=== PATIENT | female | born 1955 | race Caucasian/White ===

== ENCOUNTER → 2018-02-08 07:38 | Outpatient (CLI) | payer OTHER, SELFPAY ==
[2018-02-08 09:01] LABS: Add Manual Diff / Slide Review NO; Basophils Percent Auto 0.8 % (0-2); Eosinophils Percent Auto 1.2 % (2-4); Hematocrit 27.9 % (36-46); Hemoglobin 9.6 g/dL (12.0-16.0); Lymphocytes Percent Auto 31.3 % (25-40); Mean Corpuscular HGB Conc 34.5 % (30-36); Mean Corpuscular Hemoglobin 38.5 PG (26-34); Mean Corpuscular Volume 111.5 fL (80-100); Monocytes Percent Auto 11.8 % (3-14); Neutrophils Absolute Auto 1500 /uL (3000-5900); Neutrophils Percent Auto 54.9 % (50-75); Platelet Count 189 X10^3/uL (150-400); Red Cell Distribution Width 16.7 % (11.6-14.8); White Blood Cell Count 2.8 X10^3/uL (4.5-11.0)
[2018-02-08 09:15] LABS: HEMOLYSIS < 15 (0-50); Iron 92 ug/dL (37-170)
[2018-02-08 09:17] LABS: Alanine Aminotransferase 18 IU/L (9-52); Albumin 3.6 g/dL (3.5-5.0); Albumin Globulin Ratio 1.4 (1.0-2.8); Alkaline Phosphatase 103 U/L (38-126); Aspartate Aminotransferase 35 IU/L (14-36); BUN Creatinine Ratio 23.3 (6-22); Bilirubin Total 0.9 mg/dL (0.2-1.3); Blood Urea Nitrogen 14 mg/dL (7-17); Calcium 8.7 mg/dL (8.4-10.2); Carbon Dioxide 24 mmol/L (22-32); Chloride 106 mmol/L (98-107); Estimated Glomerular Filt Rate > 60.0 mL/min (>60); Globulin 2.5 g/dL (1.7-4.1); Glucose 152 mg/dL (80-110); HEMOLYSIS < 15 (0-50); Potassium 3.8 mmol/L (3.4-5.1); Sodium 140 mmol/L (137-145); Total Protein 6.1 g/dL (6.3-8.2)
[2018-02-08 09:20] LABS: Polychromasia 1+
[2018-02-08 09:21] LABS: Hypochromasia 1+; Macrocytosis 2+
[2018-02-08 09:26] LABS: Percent Iron Saturation 27 % (15-50); Total Iron Binding Capacity 335 ug/dL (265-497); Transferrin 280 mg/dL (206-381)
[2018-02-08 09:51] LABS: Ferritin 62.6 ng/mL (11.1-264)
[2018-02-08 10:21] LABS: Vitamin B12 305 pg/mL (239-931)
== END ==
PROVIDERS: Family Provider Family Medicine; PCP Family Medicine; Visit Provider Internal Medicine Hematology & Oncology
DX: C50.912 Malignant neoplasm of unspecified site of left female breast (principal); D64.9 Anemia, unspecified
CPT/HCPCS: 36415; 80053; 82607; 82728; 82746; 83540; 83550; 85025

== ENCOUNTER → 2018-02-11 07:44 | Outpatient (CLI) | payer OTHER, SELFPAY ==
--- NOTE | 2018-02-11 07:45 | DI.MRI.S_ITS ---
PROCEDURE: MR HEAD/BRAIN WO/W CON INDICATIONS: Malignant neoplasm of unspecified site of left fem TECHNIQUE: Noncontrast axial T1 spin echo, axial T2 fast spin echo, sagittal and axial FLAIR, coronal T2 fast spin echo, axial gradient echo, axial diffusion and ADC through the brain. After the administration of contrast, axial and coronal T1 spin echo with fat saturation through the brain. COMPARISON: None. FINDINGS: Image quality: Excellent. CSF spaces: Basal cisterns are patent. No extra-axial fluid collections. Ventricles are normal in size and shape. Brain: No midline shift. No intracranial bleeds or masses. Diffuse, generalized thickening and enhancement can be seen of the dura, including the falx. Mild nodularity can be seen of the thickening, particularly anteriorly. There is mild cerebral volume loss. There is periventricular white matter chronic small vessel ischemic change. The brainstem appears normal. Diffusion-weighted images demonstrate no acute ischemic insults. No chronic ischemic insults. Normal intravascular flow voids are present. Skull and face: Calvarial marrow is normal in signal. Orbits appear normal. Sinuses: Sinuses appear clear. There is moderate abnormal fluid seen involving the right mastoid air cells. IMPRESSION: Diffuse thickening and enhancement can be seen throughout the dura, including the falx. Given the patient's history, this is worrisome for diffuse meningeal metastasis. Differential diagnosis includes idiopathic pachymeningitis, infection, intracranial hypotension, and sarcoid, yet these possibilities are considered to be less likely. No findings of brain parenchymal metastasis can be seen. Moderate abnormal fluid can be seen involving the right mastoid air cells. Please correlate with potential clinical findings of mastoiditis. Dictated by: Madi Navarrete M.D. on 02/11/2018 at 10:03 Approved by: Madi Navarrete M.D. on 02/11/2018 at 10:17
== END ==
PROVIDERS: Family Provider Family Medicine; PCP Family Medicine; Visit Provider Internal Medicine Hematology & Oncology
DX: C50.912 Malignant neoplasm of unspecified site of left female breast (principal); C79.51 Secondary malignant neoplasm of bone
CPT/HCPCS: 70553

== ENCOUNTER → 2018-04-19 09:09 | Outpatient (CLI) | payer OTHER, SELFPAY ==
--- NOTE | 2018-04-19 09:11 | DI.NM.S_ITS ---
PROCEDURE: NM BONE SCAN WHOLE BODY RADIOPHARMACEUTICAL: 20.3 mCi Tc-99m MDP IV. INDICATIONS: Secondary malignant neoplasm suspected based on history of breast carcinoma December 2017 and presence of diffuse meningeal enhancement and thickening suspected to represent carcinomatosis within the CSF. TECHNIQUE: Delayed whole-body scintigrams were obtained approximately 3-4 hours after intravenous injection of radiotracer. Anterior and posterior views were acquired from vertex to feet. Additional left and right oblique views of the chest/abdomen/upper margin of the pelvis were obtained. COMPARISON: [facility], MR, MR HEAD/BRAIN WO/W CON, 02/11/2018, 8:02. [facility], CT, ABDOMEN WITH CONTRAST, 06/01/2008, 11:22. FINDINGS: Normal examination. IMPRESSION: No evidence of osseous metastatic disease is found. Dictated by: Dickson Calle M.D. on 04/19/2018 at 14:46 Approved by: Dickson Calle M.D. on 04/19/2018 at 14:51
[2018-04-19 09:28] LABS: Add Manual Diff / Slide Review NO; Basophils Absolute Auto 0 /uL (0-100); Basophils Percent Auto 1.2 % (0-2); Eosinophils Absolute Auto 0 /uL (0-450); Eosinophils Percent Auto 0.9 % (2-4); Hematocrit 31.3 % (36-46); Hemoglobin 10.6 g/dL (12.0-16.0); Lymphocytes Absolute Auto 700 /uL (1100-4500); Lymphocytes Percent Auto 20.4 % (25-40); Mean Corpuscular HGB Conc 33.8 % (30-36); Mean Corpuscular Hemoglobin 38.4 PG (26-34); Mean Corpuscular Volume 113.4 fL (80-100); Monocytes Absolute Auto 300 /uL (0-900); Monocytes Percent Auto 9.8 % (3-14); Neutrophils Absolute Auto 2200 /uL (1500-7000); Neutrophils Percent Auto 67.7 % (50-75); Platelet Count 151 X10^3/uL (150-400); Red Blood Cell Count 2.76 X10^6/uL (4.0-5.2); Red Cell Distribution Width 16.9 % (11.6-14.8); White Blood Cell Count 3.3 X10^3/uL (4.5-11.0)
[2018-04-19 09:53] LABS: Anisocytosis 1+
[2018-04-19 09:54] LABS: Macrocytosis 2+
--- NOTE | 2018-04-21 15:32 | PC.NURSE ---
Results of resent bone scan faxed to pt per her request.
== END ==
PROVIDERS: Family Provider Family Medicine; PCP Family Medicine; Visit Provider Internal Medicine Hematology & Oncology
DX: C50.912 Malignant neoplasm of unspecified site of left female breast (principal)
CPT/HCPCS: 36415; 78306; 85025; A9503

== ENCOUNTER → 2018-05-25 09:03 | Outpatient (CLI) | payer OTHER, SELFPAY ==
--- NOTE | 2018-05-25 10:09 | DI.CT.S_ITS ---
PROCEDURE: CT CHEST ABD PEL W CON INDICATIONS: Restaging breast cancer TECHNIQUE: After the administration of oral and intravenous contrast, 5 mm thick sections acquired from the lung apices to the symphysis. 5 mm coronal and sagittal reformats were performed, with additional 7 mm coronal MIP reformats through the lungs. For radiation dose reduction, the following was used: automated exposure control, adjustment of mA and/or kV according to patient size. COMPARISON: [place], [place], [place] BONE SCAN WHOLE BODY, 04/19/2018, 12:51. [facility], , CT ABDOMEN/PELVIS WITH CONTRAST, 01/25/2018, 12:20. [facility], , CT THORAX WITH CONTRAST, 01/27/2018, 13:15. FINDINGS: Image quality: Excellent. CHEST: Lungs and pleura: No acute airspace opacities. There is biapical scarring. Mild centrilobular emphysema is seen 3 mm nodular density in the anterior aspect of the right upper lobe is noted unchanged from previous study series 3 image 31. No discrete left lung nodule is seen.No pleural effusions or pneumothorax. Central and peripheral airways appear patent and normal in caliber. Mediastinum: Heart size is normal. No pericardial effusion. No mediastinal or hilar adenopathy by size criteria. Subcentimeter lymph nodes are seen in mediastinum measures up to 8 mm in size in precarinal space unchanged from previous study. Thoracic aorta and central pulmonary arteries are normal in size. Esophagus is normal in caliber. There is a small hiatal hernia. Chest wall: No axillary or supraclavicular adenopathy by size criteria. Left thyroid lobe is enlarged with partially calcified 9 mm left thyroid lobe nodule is seen unchanged from previous study. ABDOMEN: Solid organs: Liver is normal in size and enhancement. Gallbladder is within normal limits. Biliary system is non dilated. There is a 3.1 x 2.5 x 3 cm cystic structure is seen involving tail of pancreas inferior to greater curvature of stomach. This has increased in size compared to 2.3 x 2.5 cm seen on previous study. It is difficult to separate this structure from adjacent posterior lateral gastric wall. Spleen is normal in size and enhancement. 1 x 0.7 cm left adrenal nodule is seen, unchanged from previous study.. No right adrenal nodules. Kidneys demonstrate normal size and enhancement, without hydronephrosis. Peritoneum and bowel: There is suggestion of diffuse gastric wall thickening. No definite discrete vascular wall mass is seen. There is also diffuse colonic wall thickening particularly involving ascending colon and proximal to mid transverse colon. No significant small bowel wall thickening is seen. No evidence of bowel obstruction. No free fluid or free air. Nodes and vessels: No retroperitoneal or mesenteric adenopathy by size criteria. Aorta and inferior vena cava are normal in size. Miscellaneous: No ventral hernias. PELVIS: Genitourinary: Bladder wall thickness is normal. Miscellaneous: No inguinal hernias or adenopathy. Bones: Markedly heterogeneous marrow density throughout visualized thoracic and lumbar vertebral bodies as well as bilateral ribs and bony pelvis concerning for extensive bony metastasis. Similar changes also seen in bilateral shoulder joints. IMPRESSION: 1. Biapical scarring. Stable 3 mm nodule in anterior aspect of right upper lobe unchanged from prior study. No new pulmonary nodule or mass is seen. 2. No mediastinal or hilar lymphadenopathy. No abdominal or pelvic lymphadenopathy. 3. Small hiatal hernia. No evidence of bowel obstruction. Suggestion of gastric wall thickening as well as diffuse colonic wall thickening. Finding may represent infectious or inflammatory gastritis and colitis. This is also seen on previous CT study. 4. 3.1 x 2.5 x 3 cm cystic structure involving tail of pancreas inferior to greater curvature of stomach and has increased in size since previous study concerning for primary or metastatic disease involving pancreatic tail. It is difficult to separate this structure from adjacent gastric wall, tumor invasion of gastric wall cannot be excluded. 5. Markedly heterogeneous marrow density is well visualized osseous structures concerning for extensive metastatic bony lesions. No gross pathologic fracture is seen. Dictated by: Ezio Xiao M.D. on 05/25/2018 at 14:41 Approved by: Ezio Xiao M.D. on 05/25/2018 at 15:15
== END ==
PROVIDERS: Family Provider Family Medicine; PCP Family Medicine; Visit Provider Internal Medicine Hematology & Oncology
DX: C50.912 Malignant neoplasm of unspecified site of left female breast (principal); R91.1 Solitary pulmonary nodule; K44.9 Diaphragmatic hernia without obstruction or gangrene; K86.2 Cyst of pancreas
CPT/HCPCS: 71260; 74177; 93005; 93010; Q9967

== ENCOUNTER → 2018-07-20 11:04 | Outpatient (CLI) | payer OTHER, SELFPAY ==
--- NOTE | 2018-07-20 11:16 | DI.CT.S_ITS ---
PROCEDURE: CT CHEST ABD PEL W CON INDICATIONS: metastatic breast cancer, restaing TECHNIQUE: After the administration of oral and intravenous contrast, 5 mm thick sections acquired from the lung apices to the symphysis. 5 mm coronal and sagittal reformats were performed, with additional 7 mm coronal MIP reformats through the lungs. For radiation dose reduction, the following was used: automated exposure control, adjustment of mA and/or kV according to patient size. COMPARISON: [facility], , CT THORAX WITH CONTRAST, 01/27/2018, 13:15. [facility], , CT ABDOMEN/PELVIS WITH CONTRAST, 01/25/2018, 12:20. [facility], CT, ABDOMEN WITH CONTRAST, 06/01/2008, 11:22. [facility], CT, CT CHEST ABD PEL W CON, 05/25/2018, 9:45. FINDINGS: Image quality: Excellent. CHEST: Lungs and pleura: There is 3 mm subpleural nodule in the right middle lobe anteriorly (series 3 image 29), unchanged since 01/27/2018. No acute airspace opacities. No pleural effusions or pneumothorax. Central and peripheral airways appear patent and normal in caliber. Mediastinum: Heart size is normal. No pericardial effusion. No mediastinal or hilar adenopathy by size criteria. Thoracic aorta and central pulmonary arteries are normal in size. Esophagus is normal in caliber. No hiatal hernia. Chest wall: No axillary or supraclavicular adenopathy by size criteria. There is a 9 mm left thyroid nodule, unchanged. ABDOMEN: Solid organs: Liver is normal in size and enhancement. Gallbladder is normal. Biliary system is non dilated. There is a 1.6 x 2.4 cm cystic mass near the pancreatic tail, which demonstrated interval decrease in size (previously 2.1 x 3.2 cm on 05/25/2018). Pancreas enhances normally. Spleen is normal in size and enhancement. No adrenal nodules. Kidneys demonstrate normal size and enhancement, without hydronephrosis. Peritoneum and bowel: There is colonic wall thickening involving the hepatic flexure and transverse colon suggesting colitis. Bowel loops demonstrate normal wall caliber. No free fluid or air. Nodes and vessels: No retroperitoneal or mesenteric adenopathy by size criteria. Aorta and inferior vena cava are normal in size. Miscellaneous: No ventral hernias. PELVIS: Genitourinary: Bladder wall thickness is normal. Miscellaneous: No inguinal hernias or adenopathy. Bones: There are widespread osseous metastases with mixed lytic and blastic bone lesions. No vertebral body compression fractures. IMPRESSION: 1. Stable 3 mm lung nodule since 01/27/2018. 2. Interval decrease in size of a cystic mass in the area of the pancreatic tail. 3. Widespread osseous metastases. 4. There is colonic wall thickening involving the hepatic flexure and transverse colon, suspicious for colitis. 5. A 9 mm left thyroid nodule. Recommend thyroid ultrasound for followup. Dictated by: Sherif Bain M.D. on 07/20/2018 at 12:54 Approved by: Sherif Bain M.D. on 07/20/2018 at 18:05
== END ==
PROVIDERS: Family Provider Family Medicine; PCP Family Medicine; Visit Provider Internal Medicine Hematology & Oncology
DX: C50.912 Malignant neoplasm of unspecified site of left female breast (principal); C79.51 Secondary malignant neoplasm of bone; R91.1 Solitary pulmonary nodule; K86.9 Disease of pancreas, unspecified; E04.1 Nontoxic single thyroid nodule
CPT/HCPCS: 71260; 74177; Q9967

== ENCOUNTER → 2018-10-27 09:44 | Outpatient (CLI) | payer OTHER, SELFPAY ==
--- NOTE | 2018-10-27 09:47 | DI.CT.S_ITS ---
PROCEDURE: CT CHEST ABD PEL W CON INDICATIONS: met breast cancer TECHNIQUE: After the administration of intravenous contrast, 5 mm thick sections acquired from the lung apices to the symphysis. 5 mm coronal and sagittal reformats were performed, with additional 7 mm MIP reformats through the lungs. For radiation dose reduction, the following was used: automated exposure control, adjustment of mA and/or kV according to patient size. COMPARISON: [facility], , CT ABDOMEN/PELVIS WITH CONTRAST, 01/25/2018, 12:20. [facility], CT, CT CHEST ABD PEL W CON, 05/25/2018, 9:45. [facility], CT, CT CHEST ABD PEL W CON, 07/20/2018, 11:55. FINDINGS: Image quality: Excellent. CHEST: Lungs and pleura: No acute consolidation. 2-3 mm nodule involving the posterior left upper lobe and anterior right lobe are unchanged. No pleural effusions or pneumothorax. Central and peripheral airways appear patent and normal in caliber. Mediastinum: Heart size is normal. No pericardial effusion. No mediastinal or hilar adenopathy by size criteria. Thoracic aorta and central pulmonary arteries are normal in size. Esophagus is normal in caliber. No hiatal hernia. Chest wall: No axillary or supraclavicular adenopathy by size criteria. Thyroid gland contains heterogeneous nodule present within the left lobe, grossly unchanged. This could be better assessed with ultrasound as clinically necessary. ABDOMEN: Solid organs: Liver is normal in size and enhancement. Gallbladder partially contracted otherwise unremarkable. Biliary system is non dilated. Grossly unchanged appearance of predominantly cystic lesion in the region of the tail the pancreas, or possibly involving the adjacent gastric wall measuring 3 cm. Spleen is normal in size and enhancement. No adrenal nodules. Kidneys demonstrate normal size and enhancement, without hydronephrosis. Peritoneum and bowel: There is bowel wall thickening involving the hepatic flexure and proximal to mid transverse colon. Overall however this appears improved since 01/25/18, and grossly unchanged since 07/20/18. No free fluid or air. Nodes and vessels: No retroperitoneal or mesenteric adenopathy by size criteria. Aorta and inferior vena cava are normal in size. Miscellaneous: No ventral hernias. PELVIS: Genitourinary: The bladder partially contracted otherwise unremarkable Miscellaneous: No inguinal hernias or adenopathy. Bones: Widespread osseous metastases appear grossly unchanged IMPRESSION: Overall, stable examination since 07/20/18. Redemonstration widespread osseous metastases, grossly unchanged. Unchanged appearance of colonic wall thickening involving the hepatic flexure and transverse colon, also unchanged. Indeterminate cystic lesion involving the region of the pancreatic tail. This appears grossly unchanged. Dictated by: Saman Bush M.D. on 10/27/2018 at 14:51 Approved by: Saman Bush M.D. on 10/27/2018 at 15:00
--- NOTE | 2018-10-27 09:47 | DI.NM.S_ITS ---
PROCEDURE: SC BONE SCAN WHOLE BODY RADIOPHARMACEUTICAL: 22 mCi Tc-99m MDP IV. INDICATIONS: met breast cancer TECHNIQUE: Delayed whole-body scintigrams were obtained approximately 3-4 hours after intravenous injection of radiotracer. Anterior and posterior views were acquired from vertex to feet. COMPARISON: [facility], CT, CT CHEST ABD PEL W CON, 10/27/2018, 11:13. [facility], [place], SC BONE SCAN WHOLE BODY, 04/19/2018, 12:51. FINDINGS: There is heterogeneous mildly increased activity within the visualized osseous structures including the calvarium, ribs, spine, sternum, bony pelvis, femurs, and tibia. These correspond to diffuse osseous metastatic disease seen on the concurrent CT. There is focal uptake in the region of the right costovertebral junction of T11 which may correspond to a more active metastatic lesion. IMPRESSION: 1. Diffusely heterogeneous increase bony uptake corresponding to diffuse metastatic disease seen on CT. 2. Focal uptake at the right costovertebral junction of T11 suggestive of active metastatic disease. Dictated by: Abdon Good M.D. on 10/27/2018 at 20:21 Approved by: Abdon Good M.D. on 10/27/2018 at 20:23
== END ==
PROVIDERS: Family Provider Family Medicine; PCP Family Medicine; Visit Provider Internal Medicine Hematology & Oncology
DX: C50.912 Malignant neoplasm of unspecified site of left female breast (principal); C79.51 Secondary malignant neoplasm of bone; K86.2 Cyst of pancreas; R91.8 Other nonspecific abnormal finding of lung field
CPT/HCPCS: 71260; 74177; 78306; A9503; Q9967

== ENCOUNTER → 2019-01-10 09:40 | Oncology outpatient (ONC) | payer OTHER, SELFPAY ==
--- NOTE | 2018-02-01 14:47 | ONC.NAV ---
Late Entry: T/C care coordination on 01/29/18 Description: Medical Priority Loading [place] Activity: Completed a medical priority boarding pass for pt, scanned and emailed it for their use on Thursday. Introduced myself as the Pt [facility]/JANITOR HELPER, and assisted with coordination of pt's initial new consult visit with Dr. Park. Will plan to f/u with pt/spouse again once she see's the provider.
[2018-02-01 14:59] VITALS: TEMP 36.7
--- NOTE | 2018-02-01 15:05 | ONC.CONS ---
History of Present Illness - Data of Consult Patient: new to practice Consult date: 02/01/18 Requesting Physician: Ahsan Handy MD Primary Care Provider: Stephen Mckeon MD - Consult Narrative Reason for consult: Newly diagnosed metastatic breast cancer Narrative: Keely Torers is a 62 year old female. She reported that for the past one and half years (likely since mid 2016), patient has been losing weight continuously. She said she was losing weight 5 lb at a time. She did not pay much attention initially until recently when she developed lower abdomen pain and bloating. She said the pain sometimes feels like stabbing. Patient also said that the abdominal symptoms are associated with dry heaves, nausea and sometimes vomiting. Patient is having repeated diarrhea. But she denies any blood in the stool. Her PCP Dr. Mckeon saw the patient and referred her to local coordinator Dr. Moy for EGD and C-scope. On 01/25/2018, patient underwent CT abdomen pelvis with contrast. It showed diffuse osseous metastasis. Site of primary malignancy is not identified on the abdomen and pelvic CT. Mild amount of free fluid within the abdomen and pelvis of uncertain cause. 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 Incomplete distention of the stomach with possible thickening of the gastric body and antrum diffusely but no discrete mass. On 01/25/2018,Dr Handy performed EGD and C-scope. EGD showed norrmal esophagus, but edematous mucosa in the cardia, gastric fundus and duodenm. biopsies were obtained. C-scope showed congested mucosa in the entire examined colon and was biopsied. One 2 mm, nonbleeding polyp in the sigmoid colon was resected and retrieved. The examination was otherwise normal. The colon/gastric biopsies found metastatic carcinoma consistent with lobular carcinoma of breast. On 01/27/2018, she underwent CT chest that showed no pulmonary parenchymal nodules or adenopathy, but it showed diffuse osseous predominantly blastic metastasis. Infiltration of the proximal right humerus was noted. On January 27, 2018 patient underwent left breast ultrasound-guided core biopsies. The biopsy showed invasive lobular carcinoma, intermediate grade, 4 of 9 cores involved, 6 mm in greatest length of carcinoma, without identifiable lymphovascular invasion, without ductal carcinoma in-situ present, ER positive (3+, 100% of cells), RI positive (1+, 30% of cells), Ki 67 intermediate (10% of cells), HER2 IHC equivocal for HER2 (overexpression 2+, 20% of cells), FISH pending. Dr. Handy called and informed the patient of the results. Per patient request, patient was referred to [facility] as patient lives in [place] and [place] would be closer for her. Her case is scheduled for [facility] Tumor Board discussion tomorrow. She is complaining of low energy and pretty fatigue. She denies any headache. She is complaining of stomach pain while she was pointing to her lower abdomen. Patient reports pain?: Yes Home Medications and Allergies Home Medications Medication Instructions Recorded Confirmed Type lorazepam [Ativan] 0.5 mg SUBLINGUAL 4-6XD PRN #60 tab 02/04/18 Rx oxycodone 5 mg PO Q4-6H PRN #60 cap 02/04/18 Rx Allergies Allergy/AdvReac Type Severity Reaction Status Date / Time No Known Drug Allergies Allergy Verified 02/04/18 09:11 Medical History - Medical, Surgical, Family History Medical History: Medical History (Last Updated 02/01/18 @ 15:19 by Juana Park MD) [place] chorioretinopathy Surgical History: Surgical History (Last Updated 02/01/18 @ 15:19 by Juana Park MD) H/O section Family History: Family History (Last Updated 02/01/18 @ 15:20 by Juana Park MD) Mother Breast cancer Father Alzheimer disease - Social History Smoking Status: Never smoker Substance Use Type: does not use Alcohol Intake Frequency: 0-2 drinks per day Review of Systems All systems PM: reviewed and no additional remarkable complaints except as stated Exam Vital signs: Temp 98.1 F 02/01/18 16:04 Pulse 97 H 02/01/18 16:04 Resp 18 02/01/18 16:04 BP 130/93 H 02/01/18 16:04 Pulse Ox 100 02/01/18 16:04 ECOG 1 - Constitutional positive no acute distress, positive cachectic, positive chronically ill appearing, positive cooperative - Routine HEENT Exam Head: Present: normocephalic, atraumatic Eye: Present: EOMI, PERRL, normal accommodation. Absent: conjunctival icterus ENT: Present: mucous membranes moist - Routine Neck Exam Present: supple, full ROM. Absent: JVD, lymphadenopathy, thyromegaly, tenderness, swelling - Detailed Breast Exam left Inspection: Absent: rash, erythema, swelling, peau d'orange, nipple discharge, area of retraction, discharge Palpation: Present: mass (at about 1-2 o'clcok), tenderness Mass type: Present: mobile, tenderness, hard Size (cm): 1 Female Breast Image: 1 - mass right Inspection: Absent: rash, erythema, swelling, peau d'orange, nipple discharge, area of retraction, discharge Palpation: Absent: mass, tenderness, induration, implant - Routine Respiratory Exam Present: Clear to auscultation bilaterally. Absent: accessory muscle use, rales, respiratory distress, rhonchi, stridor, wheezes - Routine Cardiovascular Exam Present: RRR, S1, S2. Absent: murmur, gallop, rubs, S3, bradycardia, tachycardia - Routine Abdominal Exam Present: soft, normoactive bowel sounds, tenderness - Routine Extremities Exam Absent: edema, full ROM, calf tenderness - Routine Back/Spine Exam Back/Spine: Present: full ROM. Absent: CVA tenderness - Routine Neurological Exam Present: alert, oriented X3, CN II-XII intact, normal reflexes, normal speech. Absent: sensory deficit, motor deficit - Routine Psychiatric Exam Present: normal affect, normal thought process, cooperative, good insight, good judgment. Absent: suicidal ideation Results - Labs Lab results from January 06, 2018, WBC 2.5, hemoglobin 10.4, hematocrit 30.6, MCV 110.9, platelets 149, ANC 1.28, vitamin B12 162, folic acid level 3.3, Sodium 139, potassium 4.0, chloride 107,, carbon dioxide 25, calcium 8.6, total protein 5.5, albumin 3.6, globulin 1.9, total bilirubin 1.1, alk-phos 101, AST 25, ALT 6, TSH 2.17, - Imaging CT scan - abdomen: report reviewed CT scan - chest: report reviewed CT scan - pelvis: report reviewed Assessment and Plan (1) Primary cancer of left breast with metastasis to other site Patient said that [facility] is going to have a Tumor Board discussion tomorrow. I will try to get their discussion results. I will see the patient the day after tomorrow and discuss with the patient about the treatment options. Overall, I discussed with the patient that for hormone receptor positive breast cancer, I would recommend endocrine treatment together with CDK4/6 inhibitors. I do not think that the surgery has any significant role in treating metastatic breast cancer for now. Since patient does not have any severe bone pain, I do not think radiation treatment is urgently needed. Patient reported significant dizziness when she lies down on the right side. I was worried about possible brain metastasis. I will order a MRI of the brain with and without contrast. Plan: 1. EGD/C-scope report from Dr. Moy 2. MRI brain w/wo contrast 3. Records from [facility] Tumor Board discussion 4. RTC on for discussion (2) Cachexia Her body mass index is 13.6. She is severely malnutrional. I have encouraged the patient try to increase oral intake. Will try to get nutritional support. Plan: Increase PO intake Nutritional support (3) Anemia Laboratory tests from December clearly indicated that the patient has both folic acid deficiency as well as vitamin B12 deficiency. In addition the anemia also may be related to the underlying metastatic breast cancer itself. Plan: Vitamin B12 1000 mcg subQ monthly Folic acid 1 mg daily
[2018-02-01 16:04] VITALS: BP 130/93; PULSE 97; RESP 18; TEMP 36.7; O2SAT 100
--- NOTE | 2018-02-04 08:42 | P.PNONC_ITS ---
PN -Subjective Interval history: She came in here today accompanied by her . She feels tired. She is having lots of diarrhea with rumbling of the abdomen. Patient said that she is having diarrhea almost once every 2 hr. She has never seen blood in the stool. Patient is also experiencing frequent nausea with vomiting. She is having dry heaves quite often. According to patient's , the patient usually would take a position because of severe abdominal pain. Patient otherwise denies fever or chills. Denies shortness of breath or chest pain. Denies any headache except dizziness when she lies on the right side. She denies any bone pain. Patient however noticed some subcutaneous nodules in the left upper abdomen and around the umbilicus. They are raised little bit with reddish in color. It was not itching. The case was indeed discussed at [facility] Tumor Board. And the recommendation is to refer the patient to Medical Oncology and Radiation Oncology. Oncological History: Keely Torres is a 62 year old female. She reported that for the past one and half years (likely since mid 2016), patient has been losing weight continuously. She said she was losing weight 5 lb at a time. She did not pay much attention initially until recently when she developed lower abdomen pain and bloating. She said the pain sometimes feels like stabbing. Patient also said that the abdominal symptoms are associated with dry heaves, nausea and sometimes vomiting. Patient is having repeated diarrhea. But she denies any blood in the stool. Her PCP Dr. Mckeon saw the patient and referred her to inter com servicer Dr. Moy for EGD and C-scope. On 01/25/2018, patient underwent CT abdomen pelvis with contrast. It showed diffuse osseous metastasis. Site of primary malignancy is not identified on the abdomen and pelvic CT. Mild amount of free fluid within the abdomen and pelvis of uncertain cause. 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 Incomplete distention of the stomach with possible thickening of the gastric body and antrum diffusely but no discrete mass. On 01/25/2018,Dr Handy performed EGD and C-scope. EGD showed norrmal esophagus , but edematous mucosa in the cardia, gastric fundus and duodenm. biopsies were obtained. C-scope showed congested mucosa in the entire examined colon and was biopsied. One 2 mm, nonbleeding polyp in the sigmoid colon was resected and retrieved. The examination was otherwise normal. The colon/gastric biopsies found metastatic carcinoma consistent with lobular carcinoma of breast. On 01/27/2018, she underwent CT chest that showed no pulmonary parenchymal nodules or adenopathy, but it showed diffuse osseous predominantly blastic metastasis. Infiltration of the proximal right humerus was noted. On January 27, 2018 patient underwent left breast ultrasound-guided core biopsies. The biopsy showed invasive lobular carcinoma, intermediate grade, 4 of 9 cores involved, 6 mm in greatest length of carcinoma, without identifiable lymphovascular invasion, without ductal carcinoma in-situ present, ER positive ( 3+, 100% of cells), DC positive (1+, 30% of cells), Ki 67 intermediate (10% of cells), HER2 IHC equivocal for HER2 (overexpression 2+, 20% of cells), FISH pending. Dr. Handy called and informed the patient of the results Per patient request, patient was referred to [facility] as patient lives in [place] and [place] would be closer for her. - Patient Self-Reported Symptoms SR Constitution: Weight loss/gain, Fatigue/Malaise, Night Sweats SR Cardiovascular issues: Dizzy/lightheaded SR Gastrointestinal issues: Poor or no appetite, Change in bowel pattern, Nausea , Vomiting, Diarrhea, Abdominal pain, Heartburn SR Musculoskeletal issues: Cold hands or feet SR Neuro issues: Lightheaded/dizzy, Difficulty balancing SR Hematologic issues: Slow healing SR Endocrine issues: Cold intolerance - Additional ROS All systems PM: reviewed and no additional remarkable complaints except as stated Home Medications and Allergies Home Medications Medication Instructions Recorded Confirmed Type lorazepam [Ativan] 0.5 mg SUBLINGUAL 4-6XD PRN #60 tab 02/04/18 Rx oxycodone 5 mg PO Q4-6H PRN #60 cap 02/04/18 Rx Allergies Allergy/AdvReac Type Severity Reaction Status Date / Time No Known Drug Allergies Allergy Verified 02/04/18 09:11 Exam Vital signs: 3 Temp 97.2 F L 02/04/18 08:48 Pulse 86 02/04/18 08:48 Resp 18 02/04/18 08:48 BP 118/73 02/04/18 08:48 Pulse Ox 100 02/04/18 08:48 ECOG 1 - Constitutional positive no acute distress, positive cachectic, positive cooperative - Routine HEENT Exam Head: Present: normocephalic, atraumatic Eye: Present: EOMI, PERRL, normal accommodation. Absent: conjunctival icterus ENT: Present: mucous membranes moist - Routine Neck Exam Present: supple, full ROM. Absent: lymphadenopathy, thyromegaly - Routine Chest/Breast/Axilla Exam Comments: Breast exam: deferred. - Routine Respiratory Exam Present: Clear to auscultation bilaterally. Absent: accessory muscle use, rales , respiratory distress, rhonchi, stridor, wheezes - Routine Cardiovascular Exam Present: RRR, S1, S2. Absent: murmur, gallop, rubs - Routine Abdominal Exam Present: soft. Absent: organomegaly Bowel sounds abdominal exam standard: hyperactive - Routine Extremities Exam Absent: edema - Routine Skin Exam Present: lesions Comments: Subcutaneous nodules noted at the left lower chest at around the umbilicus. There are 3 nodules at the left lower chest the largest 1 measuring about 1 cm the smallest 1 5 mm. The umbilicus nodule is probably around 3-5 mm. - Routine Neurological Exam Present: alert, oriented X3, CN II-XII intact, normal reflexes, normal speech. Absent: sensory deficit, motor deficit - Routine Psychiatric Exam Present: normal affect, normal thought process, cooperative, good insight, good judgment Assessment and Plan (1) Primary cancer of left breast with metastasis to other site I reviewed the pathology reports from the colonoscopy and upper endoscopy as well as the biopsy from the breast biopsy. All of them showed invasive lobular breast cancer, ER positive, DC positive, HER2 equivocal on IHC while FISH pending at the time of today's encounter. I talked with the patient that is why she is having lots of gastrointestinal symptoms as well as severe malnutrition. I talked with the patient that we will wait for the final report of the HER2 study. I explained to the patient that the results will change the treatment plan. If the HER2 turns out to be positive, I will give her combined chemotherapy with biological therapies including trastuzumab and pertuzumab. Otherwise we will proceed with aromatase inhibitor with CDK4/6 inhibitors. Patient voiced understanding. We called the pathology and was told that the FISH HER2 study will be available late this afternoon. Plan: 1. Pending her 2 results 2. Pending MRI brain with and without contrast 3. RTC on Thursday for discussion (2) Cachexia Her body mass index is 13.6. She is severely malnutrional. I have encouraged the patient try to increase oral intake. I will try to get nutritional support. Plan: 1. Increase PO intake 2. Referral to nutritional services (3) Anemia Laboratory tests from December 2017 clearly indicated that the patient has both folic acid deficiency as well as vitamin B12 deficiency. In addition the anemia also may be related to the underlying metastatic breast cancer itself. Plan: 1. Repeat CBC/D, CMP, B12, folic aicd, Fe panel and ferritin. 2. Vitamin B12 1000 mcg subQ monthly, one given today 3. Folic acid 2 mg daily (4) Nausea & vomiting The GI signs and symptoms are related to the metastatic involvement of the gastrointestinal systems from the gastric area and almost the entire length of the colon. I will give patient as needed medications for control. Plan: 1. Ativan 0.5 mg x 60#, 1# q4-6 prn (5) Dizziness Unknown etiology of the dizziness of the head. Interestingly she said when she lies on her right side the dizziness seems to be worse. Given the extensive involvement of the gastrointestinal tract by her lobular carcinoma, I am suspicious that brain metastasis needs to be investigated. Plan: Brain MRI w/wo contrast (6) Pain Abdomen pain is related to metastatic involvement of the GI tract by her lobular breast cancer. Plan: 1. Oxycodone 5 mg x 60#, 1# q4-6h prn 2. OTC stool softener as needed. (7) Diarrhea Diarrhea is related to metastatic involvement of the gastrointestinal system by her lobular breast cancer. Plan: Immodium 1# q4-6 prn, OTC
[2018-02-04 08:48] VITALS: BP 118/73; PULSE 86; RESP 18; TEMP 36.2; O2SAT 100
--- NOTE | 2018-02-04 09:15 | ONC.NAV ---
Description: Nutritional Consult/Dietary Activity: Completed a referral form for patient to see the [facility], per Dr. Park's request. Will fax once Dr. Park has signed. Pt was encouraged by him during her visit today to improve her intake, due to severe cachexia and preparation to begin chemotherapy. No additional needs indicated at this time. Activity: Will continue to monitor for adjustment to diagnosis, treatment, assistance and support needs.
[2018-02-04] MEDS: CYANOCOBALAMIN 1,000 MCG/ML VIAL 1000 MCG SUBCUT (09:35)
--- NOTE | 2018-02-05 13:30 | ONC.NAV ---
Description: Lodging Activity: Pt requested lodging assistance for this coming Thursday, 02/07, in order to be here early on 02/08 for her ONC appointment. Reserved a room at the [facility], notified pt of the confirmation#[id number].
--- NOTE | 2018-02-08 08:07 | ONC.PN ---
PN -Subjective Interval history: Clinically patient does not have any new signs or symptoms. Patient came here today for review the lab results especially the FISH HER2 study results as well as the treatment planning. Over the weekend the FISH testing came back negative. She came in here today alone by herself. The main problem is still the abdominal discomfort and diarrhea. She has not started using the oxycodone yet for pain control. She tried immodium and reports that helps to some extent. Oncological History: Keely Torres is a 62 year old female. She reported that for the past one and half years (likely since mid 2016), patient has been losing weight continuously. She said she was losing weight 5 lb at a time. She did not pay much attention initially until recently when she developed lower abdomen pain and bloating. She said the pain sometimes feels like stabbing. Patient also said that the abdominal symptoms are associated with dry heaves, nausea and sometimes vomiting. Patient is having repeated diarrhea. But she denies any blood in the stool. Her PCP Dr. Mckeon saw the patient and referred her to account analyst Dr. Moy for EGD and C-scope. On 01/25/2018, patient underwent CT abdomen pelvis with contrast. It showed diffuse osseous metastasis. Site of primary malignancy is not identified on the abdomen and pelvic CT. Mild amount of free fluid within the abdomen and pelvis of uncertain cause. 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 Incomplete distention of the stomach with possible thickening of the gastric body and antrum diffusely but no discrete mass. On 01/25/2018,Dr Handy performed EGD and C-scope. EGD showed norrmal esophagus, but edematous mucosa in the cardia, gastric fundus and duodenm. biopsies were obtained. C-scope showed congested mucosa in the entire examined colon and was biopsied. One 2 mm, nonbleeding polyp in the sigmoid colon was resected and retrieved. The examination was otherwise normal. The colon/gastric biopsies found metastatic carcinoma consistent with lobular carcinoma of breast. On 01/27/2018, she underwent CT chest that showed no pulmonary parenchymal nodules or adenopathy, but it showed diffuse osseous predominantly blastic metastasis. Infiltration of the proximal right humerus was noted. On January 27, 2018 patient underwent left breast ultrasound-guided core biopsies. The biopsy showed invasive lobular carcinoma, intermediate grade, 4 of 9 cores involved, 6 mm in greatest length of carcinoma, without identifiable lymphovascular invasion, without ductal carcinoma in-situ present, ER positive (3+, 100% of cells), UT positive (1+, 30% of cells), Ki 67 intermediate (10% of cells), HER2 IHC equivocal for HER2 (overexpression 2+, 20% of cells), FISH pending. Dr. Handy called and informed the patient of the results Per patient request, patient was referred to [facility] as patient lives in [place] and [place] would be closer for her. - Patient Self-Reported Symptoms SR Constitution: Weight loss/gain, Fatigue/Malaise, Night Sweats SR Cardiovascular issues: Dizzy/lightheaded SR Gastrointestinal issues: Poor or no appetite, Change in bowel pattern, Nausea, Vomiting, Diarrhea, Abdominal pain, Heartburn SR Musculoskeletal issues: Cold hands or feet SR Neuro issues: Lightheaded/dizzy, Difficulty balancing SR Hematologic issues: Slow healing SR Endocrine issues: Cold intolerance - Additional ROS All systems PM: reviewed and no additional remarkable complaints except as stated Home Medications and Allergies Home Medications Medication Instructions Recorded Confirmed Type lorazepam [Ativan] 0.5 mg SUBLINGUAL 4-6XD PRN #60 tab 02/04/18 Rx oxycodone 5 mg PO Q4-6H PRN #60 cap 02/04/18 Rx palbociclib [Ibrance] 125 mg PO DAILY #21 cap 02/08/18 Rx Allergies Allergy/AdvReac Type Severity Reaction Status Date / Time No Known Drug Allergies Allergy Verified 02/04/18 09:11 Exam Vital signs: Temp 98.9 F 02/08/18 08:17 Pulse 85 02/08/18 08:17 Resp 16 02/08/18 08:17 BP 115/74 02/08/18 08:17 Pulse Ox 100 02/08/18 08:17 ECOG 1 - Constitutional positive no acute distress, positive cachectic, positive chronically ill appearing, positive cooperative - Routine HEENT Exam Head: Present: normocephalic, atraumatic Eye: Present: EOMI, PERRL, normal accommodation. Absent: conjunctival icterus ENT: Present: mucous membranes moist - Routine Neck Exam Present: supple. Absent: lymphadenopathy, thyromegaly - Routine Chest/Breast/Axilla Exam Comments: Breast exam: deferred. - Routine Respiratory Exam Present: Clear to auscultation bilaterally. Absent: wheezes - Routine Cardiovascular Exam Present: RRR, S1, S2. Absent: murmur, gallop, rubs - Routine Abdominal Exam Present: soft, normoactive bowel sounds. Absent: distended, organomegaly - Routine Extremities Exam Absent: edema - Routine Neurological Exam Present: alert, oriented X3, CN II-XII intact, normal reflexes, moving all extremities, normal tone, normal speech. Absent: sensory deficit, motor deficit - Routine Psychiatric Exam Present: normal affect, normal thought process, cooperative, good insight, good judgment Results - Labs Reviewed. Assessment and Plan (1) Primary cancer of left breast with metastasis to other site Presented with weight loss, abdominal pain, and diarrhea. CT ab/pelvis 01/25/2018: diffuse osseous metastasis. EGD/C-scope 01/25/2018: edematous mucosa in the cardia, gastric fundus and duodenm, congested mucosa in the entire examined colon; colon/gastric biopsies found metastatic carcinoma consistent with lobular carcinoma of breast. CT chest 01/27/2018 showed no pulmonary parenchymal nodules or adenopathy, but it showed diffuse osseous predominantly blastic metastasis. Infiltration of the proximal right humerus was noted. On January 27, 2018 patient underwent left breast ultrasound-guided core biopsies:invasive lobular carcinoma, intermediate grade, 4 of 9 cores involved, 6 mm in greatest length of carcinoma, without identifiable lymphovascular invasion, without ductal carcinoma in-situ present, ER positive (3+, 100% of cells), UT positive (1+, 30% of cells), Ki 67 intermediate (10% of cells), HER2 IHC equivocal for HER2 (overexpression 2+, 20% of cells), FISH negative by FISH. I reviewed the lab results with the patient. I talked with the patient FISH HER2 study was negative. I recommended endocrine treatment together with CDK4/6 inhibitors. Given the extensive involvement of the gastrointestinal tract by metastatic breast cancer, I am concerned about the absorption of oral aromatase inhibitor. Therefore, I am planning to start with Fulvestrant. I explained to the patient about the rational behind using Fulvestrant. She verbalized understanding. I will also initiate Ibrance one she receives the medication. Plan: 1. Fulvestrant 500 mg im day 1 and 15 for first cycle, then 500 mg im ever 28 days. 2. Start Ibrance 125 mg daily 3 weeks on and 1 week off once received. 2. MRI brain with and without contrast, approved by [employer] after [id number] communication 3. RTC on 2 weeks for day 15 Fulvestrant, and MD visit. 4. CBC, CMP with next visit. (2) Bone metastasis CT chest 01/27/2018 showed no pulmonary parenchymal nodules or adenopathy, but it showed diffuse osseous predominantly blastic metastasis and infiltration of the proximal right humerus was noted. I discussed with her due to bone metastasis, bone targeting agent is recommended. I talked with her about the use of Xgeva. I discussed with that the role of Xgeve is to help reduce the risk of pathological bone fracture. I also touched base with her about the side effect of osteonecrosis of the jaw. I told her that before starting the use of Xgeva. she will need to see her dentist for evaluation and dental clearance. She voiced understanding. Plan: Xgeve 120 mg subQ monthly once cleared from her dentist. (3) Cachexia Her body mass index is 13.6. She is severely malnutrional. I have encouraged the patient try to increase oral intake. Plan: 1. Increase PO intake 2. Nutritional service evaluation scheduled. (4) Anemia Laboratory tests from December 2017 clearly indicated that the patient has both folic acid deficiency as well as vitamin B12 deficiency. In addition the anemia also may be related to the underlying metastatic breast cancer itself. No iron deficiency. Plan: 1. Cont Vitamin B12 1000 mcg subQ monthly, 3. Cont folic acid 2 mg daily (5) Nausea & vomiting The GI signs and symptoms are related to the metastatic involvement of the gastrointestinal systems from the gastric area and almost the entire length of the colon. I will give patient as-needed medications for control. Plan: 1. Ativan 0.5 mg x 60#, 1# q4-6 prn (6) Diarrhea Diarrhea is related to metastatic involvement of the gastrointestinal system by her lobular breast cancer. Plan: Immodium 1# q4-6 prn, OTC (7) Dizziness Unknown etiology of the dizziness of the head. Interestingly she said when she lies on her right side the dizziness seems to be worse. Given the extensive involvement of the gastrointestinal tract by her lobular carcinoma, I am suspicious that brain metastasis needs to be investigated. Plan: Brain MRI w/wo contrast (8) Pain Abdomen pain is related to metastatic involvement of the GI tract by her lobular breast cancer. Plan: 1. Oxycodone 5 mg x 60#, 1# q4-6h prn 2. OTC stool softener as needed.
[2018-02-08 08:17] VITALS: BP 115/74; PULSE 85; RESP 16; TEMP 37.2; O2SAT 100
--- NOTE | 2018-02-10 15:05 | ONC.NAV ---
Description: Lodging Activity: Pt requested lodging for tonight due to early am appointment tomorrow here with provider. Reserved a room at the [facility], confirmed with patient. No additional needs indicated at this time.
[2018-02-11 09:14] VITALS: BP 113/77; PULSE 83; RESP 16; TEMP 36.7; O2SAT 99
[2018-02-11] MEDS: FULVESTRANT 250 MG/5 ML SYR 500 MG IM (09:28)
--- NOTE | 2018-02-11 09:45 | PC.NURSE ---
Pt seen in clinic today for faslodex injection. Reports feeling pretty good. No s/s of distress noted, pt smiling and engaging with staff. RR equal and unlabored. Reports appetite and trying to eat small meals to avoid increased nausea. Education sheet r/t faslodex provided to pt as well as packet insert from medication packaging.
--- NOTE | 2018-02-11 10:23 | ONC.NAV ---
*Pt received a Chemo Quilt today.
--- NOTE | 2018-02-17 13:53 | PC.NURSE ---
Triage note: pt requesting her MRI results. Spoke with pt on phone and explained that she can see her results of MRI by accessing the patient portal, or we can mail them to her, or we can fax results to her home; however, it was reiterated that it is out of the scope of my practice to explain the results. Explained that nobody would be available today to explain them. Dr Park is not here and will not be available til Thursday. Pt states that she understands and is fine waiting for her scheduled appt on 02/25 to discuss questions. Called Dr Park at [facility] and let him know pt is asking for her results. He is aware that I will be faxing them and is ok with this.
[2018-02-25 14:42] LABS: Add Manual Diff / Slide Review NO; Eosinophils Percent Auto 1.1 % (2-4); Hemoglobin 9.5 g/dL (12.0-16.0); Platelet Count 178 X10^3/uL (150-400)
[2018-02-25 14:58] LABS: Alanine Aminotransferase 15 IU/L (9-52); Albumin Globulin Ratio 1.7 (1.0-2.8); Alkaline Phosphatase 99 U/L (38-126); Aspartate Aminotransferase 28 IU/L (14-36); BUN Creatinine Ratio 21.3 (6-22); Blood Urea Nitrogen 17 mg/dL (7-17); Calcium 8.5 mg/dL (8.4-10.2); Carbon Dioxide 24 mmol/L (22-32); Chloride 104 mmol/L (98-107); Estimated Glomerular Filt Rate > 60.0 mL/min (>60); Globulin 2.3 g/dL (1.7-4.1); Glucose 101 mg/dL (80-110); HEMOLYSIS < 15 (0-50); Potassium 4.3 mmol/L (3.4-5.1); Sodium 139 mmol/L (137-145); Total Protein 6.3 g/dL (6.3-8.2)
[2018-02-25 15:01] LABS: Basophils Percent Auto 0.7 % (0-2); Lymphocytes Percent Auto 22.6 % (25-40); Mean Corpuscular HGB Conc 35.2 % (30-36); Monocytes Percent Auto 3.2 % (3-14); Neutrophils Absolute Auto 1800 /uL (3000-5900); Neutrophils Percent Auto 72.4 % (50-75); Red Blood Cell Count 2.44 X10^6/uL (4.0-5.2); Red Cell Distribution Width 16.1 % (11.6-14.8); White Blood Cell Count 2.5 X10^3/uL (4.5-11.0)
[2018-02-25 15:03] LABS: Mean Corpuscular Volume 110.8 fL (80-100)
[2018-02-25 15:18] LABS: Macrocytosis 2+
--- NOTE | 2018-02-25 15:39 | ONC.PN ---
PN -Subjective Interval history: Clinically patient does not have any new signs or symptoms. Patient started taking palpable sick leave about 6 days ago. Patient tolerated well. No nausea no vomiting. No fever and no chills. Patient underwent MRI of the brain on 02/11/2018. The reason for the MRI is because of her symptoms of dizziness. Unfortunately the MRI showed diffuse thickening and enhancement noted throughout the dura, including the falx. Given the patient's history, this is worrisome for diffuse meningeal metastasis. The patient presents here today for review of the MRI results. Oncological History: Keely Torres is a 62 year old female. She reported that for the past one and half years (likely since mid 2016), patient has been losing weight continuously. She said she was losing weight 5 lb at a time. She did not pay much attention initially until recently when she developed lower abdomen pain and bloating. She said the pain sometimes feels like stabbing. Patient also said that the abdominal symptoms are associated with dry heaves, nausea and sometimes vomiting. Patient is having repeated diarrhea. But she denies any blood in the stool. Her PCP Dr. Mckeon saw the patient and referred her to damage prevention coordinator Dr. Moy for EGD and C-scope. On 01/25/2018, patient underwent CT abdomen pelvis with contrast. It showed diffuse osseous metastasis. Site of primary malignancy is not identified on the abdomen and pelvic CT. Mild amount of free fluid within the abdomen and pelvis of uncertain cause. 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 Incomplete distention of the stomach with possible thickening of the gastric body and antrum diffusely but no discrete mass. On 01/25/2018,Dr Handy performed EGD and C-scope. EGD showed norrmal esophagus, but edematous mucosa in the cardia, gastric fundus and duodenm. biopsies were obtained. C-scope showed congested mucosa in the entire examined colon and was biopsied. One 2 mm, nonbleeding polyp in the sigmoid colon was resected and retrieved. The examination was otherwise normal. The colon/gastric biopsies found metastatic carcinoma consistent with lobular carcinoma of breast. On 01/27/2018, she underwent CT chest that showed no pulmonary parenchymal nodules or adenopathy, but it showed diffuse osseous predominantly blastic metastasis. Infiltration of the proximal right humerus was noted. On January 27, 2018 patient underwent left breast ultrasound-guided core biopsies. The biopsy showed invasive lobular carcinoma, intermediate grade, 4 of 9 cores involved, 6 mm in greatest length of carcinoma, without identifiable lymphovascular invasion, without ductal carcinoma in-situ present, ER positive (3+, 100% of cells), MT positive (1+, 30% of cells), Ki 67 intermediate (10% of cells), HER2 IHC equivocal for HER2 (overexpression 2+, 20% of cells), FISH pending. Dr. Handy called and informed the patient of the results Per patient request, patient was referred to [facility] as patient lives in [place] and [place] would be closer for her. - Patient Self-Reported Symptoms SR Constitution: Weight loss/gain, Fatigue/Malaise, Night Sweats SR Cardiovascular issues: Dizzy/lightheaded SR Gastrointestinal issues: Poor or no appetite, Change in bowel pattern, Nausea, Vomiting, Diarrhea, Abdominal pain, Heartburn SR Musculoskeletal issues: Cold hands or feet SR Neuro issues: Lightheaded/dizzy, Difficulty balancing SR Hematologic issues: Slow healing SR Endocrine issues: Cold intolerance Home Medications and Allergies Home Medications Medication Instructions Recorded Confirmed Type lorazepam [Ativan] 0.5 mg SUBLINGUAL 4-6XD PRN #60 tab 02/04/18 02/25/18 Rx oxycodone 5 mg PO Q4-6H PRN #60 cap 02/04/18 02/25/18 Rx palbociclib [Ibrance] 125 mg PO DAILY #21 cap 02/08/18 02/25/18 Rx Allergies Allergy/AdvReac Type Severity Reaction Status Date / Time No Known Drug Allergies Allergy Verified 02/04/18 09:11 Results - Labs Laboratory Last Values WBC 2.5 X10^3/uL (4.5-11.0) L 02/25/18 14:25 RBC 2.44 X10^6/uL (4.0-5.2) L 02/25/18 14:25 Hgb 9.5 g/dL (12.0-16.0) L 02/25/18 14:25 Hct 27.0 % (36-46) L 02/25/18 14:25 MCV 110.8 fL (80-100) H 02/25/18 14:25 MCH 39.0 PG (26-34) H 02/25/18 14:25 MCHC 35.2 % (30-36) 02/25/18 14:25 RDW 16.1 % (11.6-14.8) H 02/25/18 14:25 Plt Count 178 X10^3/uL (150-400) 02/25/18 14:25 Neut % (Auto) 72.4 % (50-75) 02/25/18 14:25 Lymph % (Auto) 22.6 % (25-40) L 02/25/18 14:25 [place] % (Auto) 3.2 % (3-14) 02/25/18 14:25 Eos % (Auto) 1.1 % (2-4) L 02/25/18 14:25 Baso % (Auto) 0.7 % (0-2) 02/25/18 14:25 Neut # (Auto) 1800 /uL (4614-9246) L 02/25/18 14:25 RBC Morphology See below 02/25/18 14:25 Macrocytosis 2+ H 02/25/18 14:25 Sodium 139 mmol/L (137-145) 02/25/18 14:25 Potassium 4.3 mmol/L (3.4-5.1) 02/25/18 14:25 Chloride 104 mmol/L (98-107) 02/25/18 14:25 Carbon Dioxide 24 mmol/L (22-32) 02/25/18 14:25 BUN 17 mg/dL (7-17) 02/25/18 14:25 Creatinine 0.80 mg/dL (0.52-1.04) 02/25/18 14:25 Estimated GFR > 60.0 mL/min (>60) 02/25/18 14:25 BUN/Creatinine Ratio 21.3 (6-22) 02/25/18 14:25 Glucose 101 mg/dL (80-110) 02/25/18 14:25 Calcium 8.5 mg/dL (8.4-10.2) 02/25/18 14:25 Total Bilirubin 1.0 mg/dL (0.2-1.3) 02/25/18 14:25 AST 28 IU/L (14-36) 02/25/18 14:25 ALT 15 IU/L (9-52) 02/25/18 14:25 Alkaline Phosphatase 99 U/L (38-126) 02/25/18 14:25 Total Protein 6.3 g/dL (6.3-8.2) 02/25/18 14:25 Albumin 4.0 g/dL (3.5-5.0) 02/25/18 14:25 Globulin 2.3 g/dL (1.7-4.1) 02/25/18 14:25 Albumin/Globulin Ratio 1.7 (1.0-2.8) 02/25/18 14:25 Assessment and Plan (1) Primary cancer of left breast with metastasis to other site Assessment: She presented with weight loss, abdominal pain, and diarrhea. CT ab/pelvis 01/25/2018: diffuse osseous metastasis. EGD/C-scope 01/25/2018: edematous mucosa in the cardia, gastric fundus and duodenm, congested mucosa in the entire examined colon; colon/gastric biopsies found metastatic carcinoma consistent with lobular carcinoma of breast. CT chest 01/27/2018 showed no pulmonary parenchymal nodules or adenopathy, but it showed diffuse osseous predominantly blastic metastasis. Infiltration of the proximal right humerus was noted. On January 27, 2018 patient underwent left breast ultrasound-guided core biopsies:invasive lobular carcinoma, intermediate grade, 4 of 9 cores involved, 6 mm in greatest length of carcinoma, without identifiable lymphovascular invasion, without ductal carcinoma in-situ present, ER positive (3+, 100% of cells), MT positive (1+, 30% of cells), Ki 67 intermediate (10% of cells), HER2 IHC equivocal for HER2 (overexpression 2+, 20% of cells), FISH negative by FISH. I recommended endocrine treatment together with CDK4/6 inhibitors. Given the extensive involvement of the gastrointestinal tract by metastatic breast cancer, I started her on Fulvestrant on 02/04/2018. Patient has started the palbociclib about 6 days ago and up until now she has been tolerating very well. No fever and no chills. No diarrhea and no constipation. As I mentioned in history of present illness, patient's MRI reviewed worrisome findings suggestive of diffuse meningeal metastasis. I talked with the patient this is an unusual metastasis. Overall her clinical presentation is somewhat atypical for hormone receptor positive breast cancer. I will refer the patient to [facility] for evaluation and opinion. Plan: 1. Fulvestrant 500 mg im day 1 and 15 for first cycle, then 500 mg im ever 28 days. Ok to proceed to day 15 injection today 2. Continue Ibrance 125 mg daily 3 weeks on and 1 week off C1D1: 02/19/2018 3. RTC on 2 weeks for cycle 2 Fulvestrant, and MD visit. 4. CBC, CMP with next visit. 5. Second opinion from [facility] for meningeal metastasis. (2) Bone metastasis CT chest 01/27/2018 showed no pulmonary parenchymal nodules or adenopathy, but it showed diffuse osseous predominantly blastic metastasis and infiltration of the proximal right humerus was noted. I discussed with her due to bone metastasis, bone targeting agent is recommended. I talked with her about the use of Xgeva. I discussed with that the role of Xgeve is to help reduce the risk of pathological bone fracture. I also touched base with her about the side effect of osteonecrosis of the jaw. I told her that before starting the use of Xgeva. she will need to see her dentist for evaluation and dental clearance. She voiced understanding. Plan: Xgeve 120 mg subQ monthly once cleared from her dentist. (3) Cachexia Her body mass index is 13.6. She is severely malnutrional. I have encouraged the patient try to increase oral intake. After we started on the treatment with fulvestrant, as a matter of fact patient has gained 1 lb. It is quite and encouraging the finding. Plan: 1. Increase PO intake 2. Nutritional service evaluation scheduled. (4) Anemia Laboratory tests from December 2017 clearly indicated that the patient has both folic acid deficiency as well as vitamin B12 deficiency. In addition the anemia also may be related to the underlying metastatic breast cancer itself. No iron deficiency. Plan: 1. Cont Vitamin B12 1000 mcg subQ monthly Will give one injection today 2. Cont folic acid 2 mg daily (5) Nausea & vomiting The GI signs and symptoms are related to the metastatic involvement of the gastrointestinal systems from the gastric area and almost the entire length of the colon. I will give patient as-needed medications for control. Plan: 1. Ativan 0.5 mg x 60#, 1# q4-6 prn (6) Diarrhea Diarrhea is related to metastatic involvement of the gastrointestinal system by her lobular breast cancer. Plan: Immodium 1# q4-6 prn, OTC (7) Dizziness Likely related to the seed cleaning manager metastasis. I will refer the patient to [facility] for more discussion. (8) Pain Abdomen pain is related to metastatic involvement of the GI tract by her lobular breast cancer. Plan: 1. Oxycodone 5 mg x 60#, 1# q4-6h prn 2. OTC stool softener as needed.
--- NOTE | 2018-02-25 15:45 | P.PNONC_ITS ---
PN -Subjective Interval history: Clinically patient does not have any new signs or symptoms. Patient started taking palpable sick leave about 6 days ago. Patient tolerated well. No nausea no vomiting. No fever and no chills. Patient underwent MRI of the brain on . The reason for the MRI is because of her symptoms of dizziness. Unfortunately the MRI showed diffuse thickening and enhancement noted throughout the dura, including the falx. Given the patient's history, this is worrisome for diffuse meningeal metastasis. The patient presents here today for review of the MRI results. Oncological History: Keely Torres is a 62 year old female. She reported that for the past one and half years (likely since mid 2016), patient has been losing weight continuously. She said she was losing weight 5 lb at a time. She did not pay much attention initially until recently when she developed lower abdomen pain and bloating. She said the pain sometimes feels like stabbing. Patient also said that the abdominal symptoms are associated with dry heaves, nausea and sometimes vomiting. Patient is having repeated diarrhea. But she denies any blood in the stool. Her PCP Dr. Mckeon saw the patient and referred her to biological engineer Dr. Moy for EGD and C-scope. On 01/25/2018, patient underwent CT abdomen pelvis with contrast. It showed diffuse osseous metastasis. Site of primary malignancy is not identified on the abdomen and pelvic CT. Mild amount of free fluid within the abdomen and pelvis of uncertain cause. 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 Incomplete distention of the stomach with possible thickening of the gastric body and antrum diffusely but no discrete mass. On 01/25/2018,Dr Handy performed EGD and C-scope. EGD showed norrmal esophagus , but edematous mucosa in the cardia, gastric fundus and duodenm. biopsies were obtained. C-scope showed congested mucosa in the entire examined colon and was biopsied. One 2 mm, nonbleeding polyp in the sigmoid colon was resected and retrieved. The examination was otherwise normal. The colon/gastric biopsies found metastatic carcinoma consistent with lobular carcinoma of breast. On 01/27/2018, she underwent CT chest that showed no pulmonary parenchymal nodules or adenopathy, but it showed diffuse osseous predominantly blastic metastasis. Infiltration of the proximal right humerus was noted. On January 27, 2018 patient underwent left breast ultrasound-guided core biopsies. The biopsy showed invasive lobular carcinoma, intermediate grade, 4 of 9 cores involved, 6 mm in greatest length of carcinoma, without identifiable lymphovascular invasion, without ductal carcinoma in-situ present, ER positive ( 3+, 100% of cells), KS positive (1+, 30% of cells), Ki 67 intermediate (10% of cells), HER2 IHC equivocal for HER2 (overexpression 2+, 20% of cells), FISH pending. Dr. Handy called and informed the patient of the results Per patient request, patient was referred to [facility] as patient lives in [place] and [place] would be closer for her. - Patient Self-Reported Symptoms SR Constitution: Weight loss/gain, Fatigue/Malaise, Night Sweats SR Cardiovascular issues: Dizzy/lightheaded SR Gastrointestinal issues: Poor or no appetite, Change in bowel pattern, Nausea , Vomiting, Diarrhea, Abdominal pain, Heartburn SR Musculoskeletal issues: Cold hands or feet SR Neuro issues: Lightheaded/dizzy, Difficulty balancing SR Hematologic issues: Slow healing SR Endocrine issues: Cold intolerance Home Medications and Allergies Home Medications Medication Instructions Recorded Confirmed Type lorazepam [Ativan] 0.5 mg SUBLINGUAL 4-6XD PRN #60 tab 02/04/18 02/25/18 Rx oxycodone 5 mg PO Q4-6H PRN #60 cap 02/04/18 02/25/18 Rx palbociclib [Ibrance] 125 mg PO DAILY #21 cap 02/08/18 02/25/18 Rx Allergies Allergy/AdvReac Type Severity Reaction Status Date / Time No Known Drug Allergies Allergy Verified 02/04/18 09:11 Results - Labs Laboratory Last Values WBC 2.5 X10^3/uL (4.5-11.0) L 02/25/18 14:25 RBC 2.44 X10^6/uL (4.0-5.2) L 02/25/18 14:25 Hgb 9.5 g/dL (12.0-16.0) L 02/25/18 14:25 Hct 27.0 % (36-46) L 02/25/18 14:25 MCV 110.8 fL (80-100) H 02/25/18 14:25 MCH 39.0 PG (26-34) H 02/25/18 14:25 MCHC 35.2 % (30-36) 02/25/18 14:25 RDW 16.1 % (11.6-14.8) H 02/25/18 14:25 Plt Count 178 X10^3/uL (150-400) 02/25/18 14:25 Neut % (Auto) 72.4 % (50-75) 02/25/18 14:25 Lymph % (Auto) 22.6 % (25-40) L 02/25/18 14:25 Power % (Auto) 3.2 % (3-14) 02/25/18 14:25 Eos % (Auto) 1.1 % (2-4) L 02/25/18 14:25 Baso % (Auto) 0.7 % (0-2) 02/25/18 14:25 Neut # (Auto) 1800 /uL (7433-1239) L 02/25/18 14:25 RBC Morphology See below 02/25/18 14:25 Macrocytosis 2+ H 02/25/18 14:25 Sodium 139 mmol/L (137-145) 02/25/18 14:25 Potassium 4.3 mmol/L (3.4-5.1) 02/25/18 14:25 Chloride 104 mmol/L (98-107) 02/25/18 14:25 Carbon Dioxide 24 mmol/L (22-32) 02/25/18 14:25 BUN 17 mg/dL (7-17) 02/25/18 14:25 Creatinine 0.80 mg/dL (0.52-1.04) 02/25/18 14:25 Estimated GFR > 60.0 mL/min (>60) 02/25/18 14:25 BUN/Creatinine Ratio 21.3 (6-22) 02/25/18 14:25 Glucose 101 mg/dL (80-110) 02/25/18 14:25 Calcium 8.5 mg/dL (8.4-10.2) 02/25/18 14:25 Total Bilirubin 1.0 mg/dL (0.2-1.3) 02/25/18 14:25 AST 28 IU/L (14-36) 02/25/18 14:25 ALT 15 IU/L (9-52) 02/25/18 14:25 Alkaline Phosphatase 99 U/L (38-126) 02/25/18 14:25 Total Protein 6.3 g/dL (6.3-8.2) 02/25/18 14:25 Albumin 4.0 g/dL (3.5-5.0) 02/25/18 14:25 Globulin 2.3 g/dL (1.7-4.1) 02/25/18 14:25 Albumin/Globulin Ratio 1.7 (1.0-2.8) 02/25/18 14:25 Assessment and Plan (1) Primary cancer of left breast with metastasis to other site Assessment: She presented with weight loss, abdominal pain, and diarrhea. CT ab/ pelvis 01/25/2018: diffuse osseous metastasis. EGD/C-scope 01/25/2018: edematous mucosa in the cardia, gastric fundus and duodenm, congested mucosa in the entire examined colon; colon/gastric biopsies found metastatic carcinoma consistent with lobular carcinoma of breast. CT chest 01/27/2018 showed no pulmonary parenchymal nodules or adenopathy, but it showed diffuse osseous predominantly blastic metastasis. Infiltration of the proximal right humerus was noted. On January 27, 2018 patient underwent left breast ultrasound-guided core biopsies:invasive lobular carcinoma, intermediate grade, 4 of 9 cores involved, 6 mm in greatest length of carcinoma, without identifiable lymphovascular invasion, without ductal carcinoma in-situ present, ER positive ( 3+, 100% of cells), KS positive (1+, 30% of cells), Ki 67 intermediate (10% of cells), HER2 IHC equivocal for HER2 (overexpression 2+, 20% of cells), FISH negative by FISH. I recommended endocrine treatment together with CDK4/6 inhibitors. Given the extensive involvement of the gastrointestinal tract by metastatic breast cancer , I started her on Fulvestrant on 02/04/2018. Patient has started the palbociclib about 6 days ago and up until now she has been tolerating very well. No fever and no chills. No diarrhea and no constipation. As I mentioned in history of present illness, patient's MRI reviewed worrisome findings suggestive of diffuse meningeal metastasis. I talked with the patient this is an unusual metastasis. Overall her clinical presentation is somewhat atypical for hormone receptor positive breast cancer. I will refer the patient to [facility] for evaluation and opinion. Plan: 1. Fulvestrant 500 mg im day 1 and 15 for first cycle, then 500 mg im ever 28 days. Ok to proceed to day 15 injection today 2. Continue Ibrance 125 mg daily 3 weeks on and 1 week off C1D1: 02/19/2018 3. RTC on 2 weeks for cycle 2 Fulvestrant, and MD visit. 4. CBC, CMP with next visit. 5. Second opinion from [facility] for meningeal metastasis. (2) Bone metastasis CT chest 01/27/2018 showed no pulmonary parenchymal nodules or adenopathy, but it showed diffuse osseous predominantly blastic metastasis and infiltration of the proximal right humerus was noted. I discussed with her due to bone metastasis, bone targeting agent is recommended. I talked with her about the use of Xgeva. I discussed with that the role of Xgeve is to help reduce the risk of pathological bone fracture. I also touched base with her about the side effect of osteonecrosis of the jaw. I told her that before starting the use of Xgeva. she will need to see her dentist for evaluation and dental clearance. She voiced understanding. Plan: Xgeve 120 mg subQ monthly once cleared from her dentist. (3) Cachexia Her body mass index is 13.6. She is severely malnutrional. I have encouraged the patient try to increase oral intake. After we started on the treatment with fulvestrant, as a matter of fact patient has gained 1 lb. It is quite and encouraging the finding. Plan: 1. Increase PO intake 2. Nutritional service evaluation scheduled. (4) Anemia Laboratory tests from December 2017 clearly indicated that the patient has both folic acid deficiency as well as vitamin B12 deficiency. In addition the anemia also may be related to the underlying metastatic breast cancer itself. No iron deficiency. Plan: 1. Cont Vitamin B12 1000 mcg subQ monthly Will give one injection today 2. Cont folic acid 2 mg daily (5) Nausea & vomiting The GI signs and symptoms are related to the metastatic involvement of the gastrointestinal systems from the gastric area and almost the entire length of the colon. I will give patient as-needed medications for control. Plan: 1. Ativan 0.5 mg x 60#, 1# q4-6 prn (6) Diarrhea Diarrhea is related to metastatic involvement of the gastrointestinal system by her lobular breast cancer. 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 I will refer the patient to [facility] for more discussion. (8) Pain Abdomen pain is related to metastatic involvement of the GI tract by her lobular breast cancer. Plan: 1. Oxycodone 5 mg x 60#, 1# q4-6h prn 2. OTC stool softener as needed.
[2018-02-25 16:03] VITALS: BP 122/78; PULSE 91; RESP 17; TEMP 37.7; O2SAT 100
[2018-02-25] MEDS: FULVESTRANT 250 MG/5 ML SYR 500 MG IM (16:05)
[2018-02-25] MEDS: CYANOCOBALAMIN 1,000 MCG/ML VIAL 1000 MCG SUBCUT (16:07)
--- NOTE | 2018-03-02 14:16 | ONC.SCHED ---
pt called upset that she got a call from [facility] for her second opinion per Dr. Park's order. I tried to clarify what the problem was as the pt upon checkout even knew I was sending records and that she was going for this second opinion. I could not figure out exactly what the issue was except she seemed to want Dr. Park to give her the second opinion. I asked Mily to reach out to the pt to try and figure out what the problem was so we could address it.
--- NOTE | 2018-03-03 14:58 | ONC.NAV ---
Description: T/C re: [facility] Consult Activity: Called pt to try and clarify why Dr. Park is sending her down to [facility] for a consult/evaluation. She feels confused about the medication she is on now, and how going to [facility] is going to help her. This ENROLLMENT ELIGIBILITY REPRESENTATIVE agreed to pass along her request to him to please call her. ENROLLMENT ELIGIBILITY REPRESENTATIVE left a note on Dr. Park's desk to this effect, and will f/u with him to ensure he understands what information she is looking for in his call to her.
[2018-03-12 09:37] LABS: Hematocrit 25.8 % (36-46); Mean Corpuscular HGB Conc 34.7 % (30-36); Mean Corpuscular Hemoglobin 39.2 PG (26-34); Mean Corpuscular Volume 112.9 fL (80-100); Platelet Count 65 X10^3/uL (150-400); Red Blood Cell Count 2.28 X10^6/uL (4.0-5.2); Red Cell Distribution Width 17.4 % (11.6-14.8)
[2018-03-12 09:38] LABS: Add Manual Diff / Slide Review YES; White Blood Cell Count 0.9 X10^3/uL (4.5-11.0)
--- NOTE | 2018-03-12 09:40 | PC.NURSE ---
Received call from Yasmani in lab, WBC 0.9, triage aware.
[2018-03-12 09:47] LABS: Alanine Aminotransferase 19 IU/L (9-52); Albumin 4.1 g/dL (3.5-5.0); Albumin Globulin Ratio 1.7 (1.0-2.8); Alkaline Phosphatase 100 U/L (38-126); Aspartate Aminotransferase 26 IU/L (14-36); Bilirubin Total 1.5 mg/dL (0.2-1.3); Blood Urea Nitrogen 14 mg/dL (7-17); Calcium 8.7 mg/dL (8.4-10.2); Carbon Dioxide 25 mmol/L (22-32); Chloride 102 mmol/L (98-107); Estimated Glomerular Filt Rate > 60.0 mL/min (>60); Globulin 2.4 g/dL (1.7-4.1); Glucose 180 mg/dL (80-110); HEMOLYSIS < 15 (0-50); Potassium 4.5 mmol/L (3.4-5.1); Sodium 136 mmol/L (137-145); Total Protein 6.5 g/dL (6.3-8.2)
[2018-03-12 09:55] LABS: Anisocytosis 3+; Neutrophils Absolute Manual 180 /uL (3000-5900); Poikilocytosis 1+; Total Cells Counted 100
--- NOTE | 2018-03-12 09:55 | ONC.PN ---
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 On 02/08/2018, patient was started on fulvestrant 500 mg on day 1 and day 15 for the first cycle. She started taking palbociclib on 02/19/2018. She took her last dose of palbociclib today. She presents here today for fulvestrant injection. Patient said overall she feels slightly better as far as the gastrointestinal signs and symptoms are concerned. She said that the abdominal pain is improving, and her appetite is also improving. However she continues to have watery diarrhea which sometimes severe and she had to take Imodium. Patient said that her weight has increased by about 5 lb since she was started on the treatment. Patient denies any fever and denies any chills. He denies shortness of the mouth. About a week ago, patient noticed right nose bleed, on and off. Patient has already been scheduled for a second opinion at [facility] on 03/25/2018 Oncological History: Keely Torres is a 62 year old female. She reported that for the past one and half years (likely since mid 2016), patient has been losing weight continuously. She said she was losing weight 5 lb at a time. She did not pay much attention initially until recently when she developed lower abdomen pain and bloating. She said the pain sometimes feels like stabbing. Patient also said that the abdominal symptoms are associated with dry heaves, nausea and sometimes vomiting. Patient is having repeated diarrhea. But she denies any blood in the stool. Her PCP Dr. Mckeon saw the patient and referred her to collar runner Dr. Moy for EGD and C-scope. On 01/25/2018, patient underwent CT abdomen pelvis with contrast. It showed diffuse osseous metastasis. Site of primary malignancy is not identified on the abdomen and pelvic CT. Mild amount of free fluid within the abdomen and pelvis of uncertain cause. 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 Incomplete distention of the stomach with possible thickening of the gastric body and antrum diffusely but no discrete mass. On 01/25/2018,Dr Handy performed EGD and C-scope. EGD showed norrmal esophagus, but edematous mucosa in the cardia, gastric fundus and duodenm. biopsies were obtained. C-scope showed congested mucosa in the entire examined colon and was biopsied. One 2 mm, nonbleeding polyp in the sigmoid colon was resected and retrieved. The examination was otherwise normal. The colon/gastric biopsies found metastatic carcinoma consistent with lobular carcinoma of breast. On 01/27/2018, she underwent CT chest that showed no pulmonary parenchymal nodules or adenopathy, but it showed diffuse osseous predominantly blastic metastasis. Infiltration of the proximal right humerus was noted. On January 27, 2018 patient underwent left breast ultrasound-guided core biopsies. The biopsy showed invasive lobular carcinoma, intermediate grade, 4 of 9 cores involved, 6 mm in greatest length of carcinoma, without identifiable lymphovascular invasion, without ductal carcinoma in-situ present, ER positive (3+, 100% of cells), UT positive (1+, 30% of cells), Ki 67 intermediate (10% of cells), HER2 IHC equivocal for HER2 (overexpression 2+, 20% of cells), negative by FISH. Patient underwent MRI of the brain on 02/11/2018. The reason for the MRI is because of her symptoms of dizziness. Unfortunately the MRI showed diffuse thickening and enhancement noted throughout the dura, including the falx. Given the patient's history, this is worrisome for diffuse meningeal metastasis. - Patient Self-Reported Symptoms SR Constitution: Weight loss/gain (gaining weight now. ), Fatigue/Malaise, Night Sweats SR Cardiovascular issues: Dizzy/lightheaded SR Gastrointestinal issues: Poor or no appetite, Change in bowel pattern, Nausea, Vomiting, Diarrhea, Abdominal pain, Heartburn SR Musculoskeletal issues: Cold hands or feet SR Neuro issues: Lightheaded/dizzy, Difficulty balancing SR Hematologic issues: Slow healing SR Endocrine issues: Cold intolerance - Additional ROS All systems PM: reviewed and no additional remarkable complaints except as stated Home Medications and Allergies Home Medications Medication Instructions Recorded Confirmed Type lorazepam [Ativan] 0.5 mg SUBLINGUAL 4-6XD PRN #60 tab 02/04/18 02/25/18 Rx palbociclib [Ibrance] 125 mg PO DAILY #21 cap 11/12/18 11/29/18 Rx levofloxacin [Levaquin] 500 mg PO DAILY #14 tab 03/12/18 Rx oxycodone 5 mg PO Q4-6H PRN #60 cap 03/12/18 Rx Allergies Allergy/AdvReac Type Severity Reaction Status Date / Time No Known Drug Allergies Allergy Verified 02/04/18 09:11 Exam Vital signs: Last Vital Signs Temp 99.9 F H 02/25/18 16:03 Pulse 91 H 02/25/18 16:03 Resp 17 02/25/18 16:03 BP 122/78 02/25/18 16:03 Pulse Ox 100 02/25/18 16:03 ECOG 1 Narrative: Constitutional: well developed, thin, well groomed, pleasant and cooperative, accompanied by her son today. HEENT: NCAT, EOMI, PERRLA, anicteric sclera, mild hearing difficulty; Oral mucus membrane moist and without ulcers. Neck: Supple, symmetrical, and tracheal midline; No palpable thyromegaly and no palpable lymph nodes. Respiratory: No use of accessory muscles. Clear to auscultation, and no wheezes or rales or rubs. Cardiovascular: Regular rate and rhythm, S1 and S2 normal, no murmurs gallops or rubs. No JVD. No pitting edema of lower extremities. Abdomen: Soft, nontender, non-distended, bowel sounds normal, no palpable organomegaly, no hernia, no palpable masses. Lower extremities: No palpable pedal edema. Lymphatic: no palpable lymph nodes in the neck, axillae, or groins. Musculoskeletal: normal gait and station, no clubbing, no cyanosis, no pitting edema. Skin: no rashes, no ulcers, no petechiae Neurological: Awake and alert and oriented x3. CN II-XII grossly intact. No focal motor or sensory deficit. Psychiatric: Good judgment, good insight, normal affect, normal thought process, cooperative, no depression, no anxiety. Results - Labs Laboratory Last Values WBC 0.9 X10^3/uL (4.5-11.0) L* 03/12/18 09:26 RBC 2.28 X10^6/uL (4.0-5.2) L 03/12/18 09:26 Hgb 9.0 g/dL (12.0-16.0) L 03/12/18 09:26 Hct 25.8 % (36-46) L 03/12/18 09:26 MCV 112.9 fL (80-100) H 03/12/18 09:26 MCH 39.2 PG (26-34) H 03/12/18 09:26 MCHC 34.7 % (30-36) 03/12/18 09:26 RDW 17.4 % (11.6-14.8) H 03/12/18 09:26 Plt Count 65 X10^3/uL (150-400) L 03/12/18 09:26 Neut % (Auto) Not Reportable 03/12/18 09:26 Lymph % (Auto) Not Reportable 03/12/18 09:26 [place] % (Auto) Not Reportable 03/12/18 09:26 Eos % (Auto) Not Reportable 03/12/18 09:26 Baso % (Auto) Not Reportable 03/12/18 09:26 Neut # (Auto) 1800 /uL (7552-9700) L 02/25/18 14:25 RBC Morphology See below 02/25/18 14:25 Macrocytosis 2+ H 02/25/18 14:25 Sodium 136 mmol/L (137-145) L 03/12/18 09:26 Potassium 4.5 mmol/L (3.4-5.1) 03/12/18 09:26 Chloride 102 mmol/L (98-107) 03/12/18 09:26 Carbon Dioxide 25 mmol/L (22-32) 03/12/18 09:26 BUN 14 mg/dL (7-17) 03/12/18 09:26 Creatinine 0.70 mg/dL (0.52-1.04) 03/12/18 09:26 Estimated GFR > 60.0 mL/min (>60) 03/12/18 09:26 BUN/Creatinine Ratio 20.0 (6-22) 03/12/18 09:26 Glucose 180 mg/dL (80-110) H 03/12/18 09:26 Calcium 8.7 mg/dL (8.4-10.2) 03/12/18 09:26 Total Bilirubin 1.5 mg/dL (0.2-1.3) H 03/12/18 09:26 AST 26 IU/L (14-36) 12/14/18 09:26 ALT 19 IU/L (9-52) 03/12/18 09:26 Alkaline Phosphatase 100 U/L (38-126) 03/12/18 09:26 Total Protein 6.5 g/dL (6.3-8.2) 03/12/18 09:26 Albumin 4.1 g/dL (3.5-5.0) 03/12/18 09:26 Globulin 2.4 g/dL (1.7-4.1) 03/12/18 09:26 Albumin/Globulin Ratio 1.7 (1.0-2.8) 03/12/18 09:26 Assessment and Plan (1) Primary cancer of left breast with metastasis to other site Problem details: Presented with weight loss, abdominal pain, and diarrhea. CT ab/pelvis 01/25/2018: diffuse osseous metastasis. EGD/C-scope 01/25/2018: edematous mucosa in the cardia, gastric fundus and duodenm, congested mucosa in the entire examined colon; colon/gastric biopsies found metastatic carcinoma consistent with lobular carcinoma of breast. CT chest 01/27/2018 showed no pulmonary parenchymal nodules or adenopathy, but it showed diffuse osseous predominantly blastic metastasis. Infiltration of the proximal right humerus was noted. On January 27, 2018 patient underwent left breast ultrasound-guided core biopsies:invasive lobular carcinoma, intermediate grade, 4 of 9 cores involved, 6 mm in greatest length of carcinoma, without identifiable lymphovascular invasion, without ductal carcinoma in-situ present, ER positive (3+, 100% of cells), UT positive (1+, 30% of cells), Ki 67 intermediate (10% of cells), HER2 IHC equivocal for HER2 (overexpression 2+, 20% of cells), FISH negative by FISH. MRI of the brain on 02/11/2018. Brain MRI: diffuse thickening and enhancement throughout the dura including the falx, suspicious for diffuse meningeal metastasis. Assessment: Patient was started on endocrine therapy on 02/08/2018 with fulvestrant. On 02/19/2018 patient was started on palbociclib 125 mg once a day 3 weeks on and 1 week off. Today is the last day of the first cycle for palbociclib. Overall patient has tolerated well. However patient did develop nose bleed on the right side. No fever and no chills. I reviewed the laboratory tests with the patient. CBC showed neutropenia as well as thrombocytopenia. I talked with the patient those are the expected side effects from the palbociclib. I will hold the treatment until patient's counts return to normal. I talked with the patient that I will give her antibiotics Levaquin prophylactically. In addition, I encouraged the patient to monitor the nose bleed closely. If it continues and gets progressively worse, she needs to go to the emergency room for evaluation. I talked with the patient that she has a hormone receptor positive, HER2 negative breast cancer with a unusual clinical presentation especially with metastasis to intracranial dura. I believe that the palbociclib may not be the best option for intracranial metastasis. I talked with her that I am thinking about switching to abemaciclib, which is able to cross the blood-brain barrier. However it has the side effects of diarrhea. I talked with her that I will wait until she is evaluated at the [facility] on 03/25/2018. Plan: 1. Fulvestrant 500 mg im day 1 and 15 for first cycle, then 500 mg im ever 28 days. C1D1: 02/09/2108. Ok to proceed to cycle 2 injection today 2. Ibrance 125 mg daily 3 weeks on and 1 week off C1D1: 02/22/2018 Hold furtherapy. Pending [facility] opinion. 3. Second opinion from [facility] for meningeal metastasis. 4. Levaquin 500 mg daily x 14 days 5. Refill Oxycodone 6. RTC on 2 weeks for MD visit, CBC, CMP with next visit. (2) Bone metastasis CT chest 01/27/2018 showed no pulmonary parenchymal nodules or adenopathy, but it showed diffuse osseous predominantly blastic metastasis and infiltration of the proximal right humerus was noted. I discussed with her due to bone metastasis, bone targeting agent is recommended. I talked with her about the use of Xgeva. I discussed with that the role of Xgeve is to help reduce the risk of pathological bone fracture. I also touched base with her about the side effect of osteonecrosis of the jaw. I told her that before starting the use of Xgeva. she will need to see her dentist for evaluation and dental clearance. She voiced understanding. Plan: 1. Pending dentist clearance. 2. Xgeve 120 mg subQ monthly once cleared from her dentist. (3) Cachexia Her body mass index is 13.6. She is severely malnutrional. I have encouraged the patient try to increase oral intake. After we started on the treatment with fulvestrant, as a matter of fact patient has gained 5 lb. It is quite and encouraging the finding. Plan: 1. Increase PO intake 2. Nutritional service evaluation scheduled. (4) Neutropenia Chemotherapy related. We will give Levaquin 500 mg once a day prophylactically starting today. (5) Anemia Laboratory tests from December 2017 clearly indicated that the patient has both folic acid deficiency as well as vitamin B12 deficiency. In addition the anemia also may be related to the underlying metastatic breast cancer itself. No iron deficiency. Plan: 1. Cont Vitamin B12 1000 mcg subQ monthly Next injection in 2 weeks 2. Cont folic acid 2 mg daily (6) Nausea & vomiting The GI signs and symptoms are related to the metastatic involvement of the gastrointestinal systems from the gastric area and almost the entire length of the colon. I will give patient as-needed medications for control. Plan: 1. Ativan 0.5 mg x 60#, 1# q4-6 prn (7) Diarrhea Diarrhea is related to metastatic involvement of the gastrointestinal system by her lobular breast cancer. 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 I will refer the patient to [facility] for more discussion. (9) Pain Abdomen pain is related to metastatic involvement of the GI tract by her lobular breast cancer. Plan: 1. Oxycodone 5 mg x 60#, 1# q4-6h prn 2. OTC stool softener as needed.
--- NOTE | 2018-03-12 10:03 | P.PNONC_ITS ---
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 On 02/08/2018, patient was started on fulvestrant 500 mg on day 1 and day 15 for the first cycle. She started taking palbociclib on 02/19/2018. She took her last dose of palbociclib today. She presents here today for fulvestrant injection. Patient said overall she feels slightly better as far as the gastrointestinal signs and symptoms are concerned. She said that the abdominal pain is improving , and her appetite is also improving. However she continues to have watery diarrhea which sometimes severe and she had to take Imodium. Patient said that her weight has increased by about 5 lb since she was started on the treatment. Patient denies any fever and denies any chills. He denies shortness of the mouth. About a week ago, patient noticed right nose bleed, on and off. Patient has already been scheduled for a second opinion at [facility] on 03/25/2018 Oncological History: Keely Torres is a 62 year old female. She reported that for the past one and half years (likely since mid 2016), patient has been losing weight continuously. She said she was losing weight 5 lb at a time. She did not pay much attention initially until recently when she developed lower abdomen pain and bloating. She said the pain sometimes feels like stabbing. Patient also said that the abdominal symptoms are associated with dry heaves, nausea and sometimes vomiting. Patient is having repeated diarrhea. But she denies any blood in the stool. Her PCP Dr. Mckeon saw the patient and referred her to automotive collision repair instructor Dr. Moy for EGD and C-scope. On 01/25/2018, patient underwent CT abdomen pelvis with contrast. It showed diffuse osseous metastasis. Site of primary malignancy is not identified on the abdomen and pelvic CT. Mild amount of free fluid within the abdomen and pelvis of uncertain cause. 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 Incomplete distention of the stomach with possible thickening of the gastric body and antrum diffusely but no discrete mass. On 01/25/2018,Dr Handy performed EGD and C-scope. EGD showed norrmal esophagus , but edematous mucosa in the cardia, gastric fundus and duodenm. biopsies were obtained. C-scope showed congested mucosa in the entire examined colon and was biopsied. One 2 mm, nonbleeding polyp in the sigmoid colon was resected and retrieved. The examination was otherwise normal. The colon/gastric biopsies found metastatic carcinoma consistent with lobular carcinoma of breast. On 01/27/2018, she underwent CT chest that showed no pulmonary parenchymal nodules or adenopathy, but it showed diffuse osseous predominantly blastic metastasis. Infiltration of the proximal right humerus was noted. On January 27, 2018 patient underwent left breast ultrasound-guided core biopsies. The biopsy showed invasive lobular carcinoma, intermediate grade, 4 of 9 cores involved, 6 mm in greatest length of carcinoma, without identifiable lymphovascular invasion, without ductal carcinoma in-situ present, ER positive ( 3+, 100% of cells), UT positive (1+, 30% of cells), Ki 67 intermediate (10% of cells), HER2 IHC equivocal for HER2 (overexpression 2+, 20% of cells), negative by FISH. Patient underwent MRI of the brain on 02/11/2018. The reason for the MRI is because of her symptoms of dizziness. Unfortunately the MRI showed diffuse thickening and enhancement noted throughout the dura, including the falx. Given the patient's history, this is worrisome for diffuse meningeal metastasis. - Patient Self-Reported Symptoms SR Constitution: Weight loss/gain (gaining weight now. ), Fatigue/Malaise, Night Sweats SR Cardiovascular issues: Dizzy/lightheaded SR Gastrointestinal issues: Poor or no appetite, Change in bowel pattern, Nausea , Vomiting, Diarrhea, Abdominal pain, Heartburn SR Musculoskeletal issues: Cold hands or feet SR Neuro issues: Lightheaded/dizzy, Difficulty balancing SR Hematologic issues: Slow healing SR Endocrine issues: Cold intolerance - Additional ROS All systems PM: reviewed and no additional remarkable complaints except as stated Home Medications and Allergies Home Medications Medication Instructions Recorded Confirmed Type lorazepam [Ativan] 0.5 mg SUBLINGUAL 4-6XD PRN #60 tab 02/04/18 02/25/18 Rx palbociclib [Ibrance] 125 mg PO DAILY #21 cap 11/12/18 11/29/18 Rx levofloxacin [Levaquin] 500 mg PO DAILY #14 tab 03/12/18 Rx oxycodone 5 mg PO Q4-6H PRN #60 cap 03/12/18 Rx Allergies Allergy/AdvReac Type Severity Reaction Status Date / Time No Known Drug Allergies Allergy Verified 02/04/18 09:11 Exam Vital signs: Last Vital Signs Temp 99.9 F H 02/25/18 16:03 Pulse 91 H 02/25/18 16:03 Resp 17 02/25/18 16:03 BP 122/78 02/25/18 16:03 Pulse Ox 100 02/25/18 16:03 ECOG 1 Narrative: Constitutional: well developed, thin, well groomed, pleasant and cooperative, accompanied by her son today. HEENT: NCAT, EOMI, PERRLA, anicteric sclera, mild hearing difficulty; Oral mucus membrane moist and without ulcers. Neck: Supple, symmetrical, and tracheal midline; No palpable thyromegaly and no palpable lymph nodes. Respiratory: No use of accessory muscles. Clear to auscultation, and no wheezes or rales or rubs. Cardiovascular: Regular rate and rhythm, S1 and S2 normal, no murmurs gallops or rubs. No JVD. No pitting edema of lower extremities. Abdomen: Soft, nontender, non-distended, bowel sounds normal, no palpable organomegaly, no hernia, no palpable masses. Lower extremities: No palpable pedal edema. Lymphatic: no palpable lymph nodes in the neck, axillae, or groins. Musculoskeletal: normal gait and station, no clubbing, no cyanosis, no pitting edema. Skin: no rashes, no ulcers, no petechiae Neurological: Awake and alert and oriented x3. CN II-XII grossly intact. No focal motor or sensory deficit. Psychiatric: Good judgment, good insight, normal affect, normal thought process , cooperative, no depression, no anxiety. Results - Labs Laboratory Last Values WBC 0.9 X10^3/uL (4.5-11.0) L* 03/12/18 09:26 RBC 2.28 X10^6/uL (4.0-5.2) L 03/12/18 09:26 Hgb 9.0 g/dL (12.0-16.0) L 03/12/18 09:26 Hct 25.8 % (36-46) L 03/12/18 09:26 MCV 112.9 fL (80-100) H 03/12/18 09:26 MCH 39.2 PG (26-34) H 03/12/18 09:26 MCHC 34.7 % (30-36) 03/12/18 09:26 RDW 17.4 % (11.6-14.8) H 03/12/18 09:26 Plt Count 65 X10^3/uL (150-400) L 03/12/18 09:26 Neut % (Auto) Not Reportable 03/12/18 09:26 Lymph % (Auto) Not Reportable 03/12/18 09:26 Mineral % (Auto) Not Reportable 03/12/18 09:26 Eos % (Auto) Not Reportable 03/12/18 09:26 Baso % (Auto) Not Reportable 03/12/18 09:26 Neut # (Auto) 1800 /uL (8187-3730) L 02/25/18 14:25 RBC Morphology See below 02/25/18 14:25 Macrocytosis 2+ H 02/25/18 14:25 Sodium 136 mmol/L (137-145) L 03/12/18 09:26 Potassium 4.5 mmol/L (3.4-5.1) 03/12/18 09:26 Chloride 102 mmol/L (98-107) 03/12/18 09:26 Carbon Dioxide 25 mmol/L (22-32) 03/12/18 09:26 BUN 14 mg/dL (7-17) 03/12/18 09:26 Creatinine 0.70 mg/dL (0.52-1.04) 03/12/18 09:26 Estimated GFR > 60.0 mL/min (>60) 03/12/18 09:26 BUN/Creatinine Ratio 20.0 (6-22) 03/12/18 09:26 Glucose 180 mg/dL (80-110) H 03/12/18 09:26 Calcium 8.7 mg/dL (8.4-10.2) 03/12/18 09:26 Total Bilirubin 1.5 mg/dL (0.2-1.3) H 03/12/18 09:26 AST 26 IU/L (14-36) 12/14/18 09:26 ALT 19 IU/L (9-52) 03/12/18 09:26 Alkaline Phosphatase 100 U/L (38-126) 03/12/18 09:26 Total Protein 6.5 g/dL (6.3-8.2) 03/12/18 09:26 Albumin 4.1 g/dL (3.5-5.0) 03/12/18 09:26 Globulin 2.4 g/dL (1.7-4.1) 03/12/18 09:26 Albumin/Globulin Ratio 1.7 (1.0-2.8) 03/12/18 09:26 Assessment and Plan (1) Primary cancer of left breast with metastasis to other site Problem details: Presented with weight loss, abdominal pain, and diarrhea. CT ab /pelvis 01/25/2018: diffuse osseous metastasis. EGD/C-scope 01/25/2018: edematous mucosa in the cardia, gastric fundus and duodenm, congested mucosa in the entire examined colon; colon/gastric biopsies found metastatic carcinoma consistent with lobular carcinoma of breast. CT chest 01/27/2018 showed no pulmonary parenchymal nodules or adenopathy, but it showed diffuse osseous predominantly blastic metastasis. Infiltration of the proximal right humerus was noted. On January 27, 2018 patient underwent left breast ultrasound-guided core biopsies:invasive lobular carcinoma, intermediate grade, 4 of 9 cores involved, 6 mm in greatest length of carcinoma, without identifiable lymphovascular invasion, without ductal carcinoma in-situ present, ER positive ( 3+, 100% of cells), UT positive (1+, 30% of cells), Ki 67 intermediate (10% of cells), HER2 IHC equivocal for HER2 (overexpression 2+, 20% of cells), FISH negative by FISH. MRI of the brain on 02/11/2018. Brain MRI: diffuse thickening and enhancement throughout the dura including the falx, suspicious for diffuse meningeal metastasis. Assessment: Patient was started on endocrine therapy on 02/08/2018 with fulvestrant. On 02/19/2018 patient was started on palbociclib 125 mg once a day 3 weeks on and 1 week off. Today is the last day of the first cycle for palbociclib. Overall patient has tolerated well. However patient did develop nose bleed on the right side. No fever and no chills. I reviewed the laboratory tests with the patient. CBC showed neutropenia as well as thrombocytopenia. I talked with the patient those are the expected side effects from the palbociclib. I will hold the treatment until patient's counts return to normal. I talked with the patient that I will give her antibiotics Levaquin prophylactically. In addition, I encouraged the patient to monitor the nose bleed closely. If it continues and gets progressively worse, she needs to go to the emergency room for evaluation. I talked with the patient that she has a hormone receptor positive, HER2 negative breast cancer with a unusual clinical presentation especially with metastasis to intracranial dura. I believe that the palbociclib may not be the best option for intracranial metastasis. I talked with her that I am thinking about switching to abemaciclib, which is able to cross the blood-brain barrier. However it has the side effects of diarrhea. I talked with her that I will wait until she is evaluated at the [facility] on 03/25/2018. Plan: 1. Fulvestrant 500 mg im day 1 and 15 for first cycle, then 500 mg im ever 28 days. C1D1: 02/09/2108. Ok to proceed to cycle 2 injection today 2. Ibrance 125 mg daily 3 weeks on and 1 week off C1D1: 02/22/2018 Hold furtherapy. Pending [facility] opinion. 3. Second opinion from [facility] for meningeal metastasis. 4. Levaquin 500 mg daily x 14 days 5. Refill Oxycodone 6. RTC on 2 weeks for MD visit, CBC, CMP with next visit. (2) Bone metastasis CT chest 01/27/2018 showed no pulmonary parenchymal nodules or adenopathy, but it showed diffuse osseous predominantly blastic metastasis and infiltration of the proximal right humerus was noted. I discussed with her due to bone metastasis, bone targeting agent is recommended. I talked with her about the use of Xgeva. I discussed with that the role of Xgeve is to help reduce the risk of pathological bone fracture. I also touched base with her about the side effect of osteonecrosis of the jaw. I told her that before starting the use of Xgeva. she will need to see her dentist for evaluation and dental clearance. She voiced understanding. Plan: 1. Pending dentist clearance. 2. Xgeve 120 mg subQ monthly once cleared from her dentist. (3) Cachexia Her body mass index is 13.6. She is severely malnutrional. I have encouraged the patient try to increase oral intake. After we started on the treatment with fulvestrant, as a matter of fact patient has gained 5 lb. It is quite and encouraging the finding. Plan: 1. Increase PO intake 2. Nutritional service evaluation scheduled. (4) Neutropenia Chemotherapy related. We will give Levaquin 500 mg once a day prophylactically starting today. (5) Anemia Laboratory tests from December 2017 clearly indicated that the patient has both folic acid deficiency as well as vitamin B12 deficiency. In addition the anemia also may be related to the underlying metastatic breast cancer itself. No iron deficiency. Plan: 1. Cont Vitamin B12 1000 mcg subQ monthly Next injection in 2 weeks 2. Cont folic acid 2 mg daily (6) Nausea & vomiting The GI signs and symptoms are related to the metastatic involvement of the gastrointestinal systems from the gastric area and almost the entire length of the colon. I will give patient as-needed medications for control. Plan: 1. Ativan 0.5 mg x 60#, 1# q4-6 prn (7) Diarrhea Diarrhea is related to metastatic involvement of the gastrointestinal system by her lobular breast cancer. 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 I will refer the patient to [facility] for more discussion. (9) Pain Abdomen pain is related to metastatic involvement of the GI tract by her lobular breast cancer. Plan: 1. Oxycodone 5 mg x 60#, 1# q4-6h prn 2. OTC stool softener as needed.
--- NOTE | 2018-03-12 10:29 | PC.NURSE ---
Dr. Park requested for pts Ibrance shipment to be held until he sees her in 2 weeks time. I was able to reach [employer] and they have placed it on hold and will contact us/pt sometime after the her 03/25 visit to [facility] to see if she will be restarting this medication.
[2018-03-12] MEDS: FULVESTRANT 250 MG/5 ML SYR 500 MG IM (10:37)
[2018-03-12 11:46] VITALS: BP 121/71; PULSE 84; RESP 18; TEMP 37.2; O2SAT 99
[2018-04-05 13:36] LABS: Add Manual Diff / Slide Review NO; Basophils Percent Auto 2.3 % (0-2); Hematocrit 27.3 % (36-46); Hemoglobin 9.4 g/dL (12.0-16.0); Lymphocytes Percent Auto 27.2 % (25-40); Mean Corpuscular HGB Conc 34.4 % (30-36); Mean Corpuscular Hemoglobin 39.7 PG (26-34); Mean Corpuscular Volume 115.5 fL (80-100); Monocytes Percent Auto 10.3 % (3-14); Neutrophils Absolute Auto 1400 /uL (1500-7000); Neutrophils Percent Auto 59.2 % (50-75); Platelet Count 148 X10^3/uL (150-400); Red Blood Cell Count 2.36 X10^6/uL (4.0-5.2); Red Cell Distribution Width 18.6 % (11.6-14.8); White Blood Cell Count 2.4 X10^3/uL (4.5-11.0)
[2018-04-05 13:46] LABS: Alanine Aminotransferase 21 IU/L (9-52); Albumin 4.4 g/dL (3.5-5.0); Albumin Globulin Ratio 1.8 (1.0-2.8); Alkaline Phosphatase 96 U/L (38-126); Aspartate Aminotransferase 35 IU/L (14-36); BUN Creatinine Ratio 26.7 (6-22); Bilirubin Total 1.1 mg/dL (0.2-1.3); Blood Urea Nitrogen 16 mg/dL (7-17); Calcium 9.4 mg/dL (8.4-10.2); Carbon Dioxide 25 mmol/L (22-32); Chloride 102 mmol/L (98-107); Estimated Glomerular Filt Rate > 60.0 mL/min (>60); Globulin 2.5 g/dL (1.7-4.1); Glucose 92 mg/dL (80-110); HEMOLYSIS < 15 (0-50); Potassium 4.4 mmol/L (3.4-5.1); Sodium 137 mmol/L (137-145); Total Protein 6.9 g/dL (6.3-8.2)
[2018-04-05 13:57] LABS: Anisocytosis 1+; Macrocytosis 3+
--- NOTE | 2018-04-05 14:46 | ONC.PN ---
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 On 02/08/2018, patient was started on fulvestrant. On 02/19/2018, she was started on Palbociclib 125 mg daily, 3 weeks on and 1 week off. Because of the meningeal metastasis concern, patient was referred to [facility] for second opinion. Today, [facility] Patient herself reported that the left breast mass seems to be decreasing in size and the subcutaneous nodule previously palpable on the left lower chest also have decreased significantly. In addition patient reported improving appetite. The abdominal pain has improved significantly. Patient has gained weight about 9 lb since after she started the treatment. However patient reported that her dizziness persists and she is not steady on her feet. She is able to walk by herself but usually will need to hold onto objects to keep balance. She denies any headache. No nausea and no vomiting. Her diarrhea also has remained about the same and there has been no improvement. Patient was evaluated by Dr. Sparks on 03/25/2018. Dr. Sparks overall agreed with the treatment plan. He called me and we discussed the case over the phone. Dr. Sparks recommended lumbar puncture for further evaluation, which happened on 04/02/2018. Cytology is still pending. Patient is complaining that the pain with injection of the fulvestrant is far worse than the lumbar puncture she had at the [facility]. She is requesting oral medications instead of the injection. Patient claimed that she has already seen her dentist. I have not received the clearance for Xgeva/Zometa yet. On 03/12/2018, palbociclib has been on hold given neutropenia. She has completed the Levaquin. No fever and no chills. - Patient Self-Reported Symptoms SR Constitution: Weight loss/gain (gaining weight now. ), Fatigue/Malaise, Night Sweats SR Cardiovascular issues: Dizzy/lightheaded SR Gastrointestinal issues: Poor or no appetite, Change in bowel pattern, Nausea, Vomiting, Diarrhea, Abdominal pain, Heartburn SR Musculoskeletal issues: Cold hands or feet SR Neuro issues: Lightheaded/dizzy, Difficulty balancing SR Hematologic issues: Slow healing SR Endocrine issues: Cold intolerance - Additional ROS All systems PM: reviewed and no additional remarkable complaints except as stated Home Medications and Allergies Home Medications Medication Instructions Recorded Confirmed Type lorazepam [Ativan] 0.5 mg SUBLINGUAL 4-6XD PRN #60 tab 02/04/18 02/25/18 Rx levofloxacin [Levaquin] 500 mg PO DAILY #14 tab 03/12/18 04/05/18 Rx oxycodone 5 mg PO Q4-6H PRN #60 cap 03/12/18 Rx letrozole [Femara] 2.5 mg PO DAILY 4 Days #90 tab 04/05/18 Rx palbociclib [Ibrance] 100 mg PO DAILY #21 cap 04/05/18 Rx Allergies Allergy/AdvReac Type Severity Reaction Status Date / Time No Known Drug Allergies Allergy Verified 02/04/18 09:11 Exam Vital signs: Last Vital Signs Temp 98.4 F 04/05/18 14:54 Pulse 73 04/05/18 14:54 Resp 18 04/05/18 14:54 BP 132/80 04/05/18 14:54 Pulse Ox 100 04/05/18 14:54 ECOG 1 Narrative: Constitutional: well developed, thin, well groomed, pleasant and cooperative, accompanied by her [id number] today. HEENT: NCAT, EOMI, PERRLA, anicteric sclera, mild hearing difficulty; Oral mucus membrane moist and without ulcers. Neck: Supple, symmetrical, and tracheal midline; No palpable thyromegaly and no palpable lymph nodes. Respiratory: No use of accessory muscles. Clear to auscultation, and no wheezes or rales or rubs. Cardiovascular: Regular rate and rhythm, S1 and S2 normal, no murmurs gallops or rubs. No JVD. No pitting edema of lower extremities. Abdomen: Soft, nontender, non-distended, bowel sounds normal, no palpable organomegaly, no hernia, no palpable masses. Lower extremities: No palpable pedal edema. Lymphatic: no palpable lymph nodes in the neck, axillae, or groins. Musculoskeletal: normal gait and station, no clubbing, no cyanosis, no pitting edema. Skin: no rashes, no ulcers, no petechiae Neurological: Awake and alert and oriented x3. CN II-XII grossly intact. No focal motor or sensory deficit. Psychiatric: Good judgment, good insight, normal affect, normal thought process, cooperative, no depression, no anxiety. Results - Labs Laboratory Last Values WBC 2.4 X10^3/uL (4.5-11.0) L 04/05/18 13:24 RBC 2.36 X10^6/uL (4.0-5.2) L 04/05/18 13:24 Hgb 9.4 g/dL (12.0-16.0) L 04/05/18 13:24 Hct 27.3 % (36-46) L 04/05/18 13:24 MCV 115.5 fL (80-100) H 04/05/18 13:24 MCH 39.7 PG (26-34) H 04/05/18 13:24 MCHC 34.4 % (30-36) 04/05/18 13:24 RDW 18.6 % (11.6-14.8) H 04/05/18 13:24 Plt Count 148 X10^3/uL (150-400) L 04/05/18 13:24 Neut % (Auto) 59.2 % (50-75) 04/05/18 13:24 Lymph % (Auto) 27.2 % (25-40) 04/05/18 13:24 [place] % (Auto) 10.3 % (3-14) 04/05/18 13:24 Eos % (Auto) 1.0 % (2-4) L 04/05/18 13:24 Baso % (Auto) 2.3 % (0-2) H 04/05/18 13:24 Neut # (Auto) 1400 /uL (0584-7827) L 04/05/18 13:24 Total Counted 100 03/12/18 09:26 Seg Neutrophils % 20.0 % (38-70) L 03/12/18 09:26 Lymphocytes % (Manual) 68.0 % (25-45) H 03/12/18 09:26 Atypical Lymphs % 12.0 % (-0) H 03/12/18 09:26 Neutrophils # (Manual) 180 /uL (1462-2591) L 03/12/18 09:26 RBC Morphology See below 04/05/18 13:24 Poikilocytosis 1+ H 03/12/18 09:26 Anisocytosis 1+ H 04/05/18 13:24 Macrocytosis 3+ H 04/05/18 13:24 Sodium 137 mmol/L (137-145) 04/05/18 13:24 Potassium 4.4 mmol/L (3.4-5.1) 04/05/18 13:24 Chloride 102 mmol/L (98-107) 04/05/18 13:24 Carbon Dioxide 25 mmol/L (22-32) 04/05/18 13:24 BUN 16 mg/dL (7-17) 04/05/18 13:24 Creatinine 0.60 mg/dL (0.52-1.04) 04/05/18 13:24 Estimated GFR > 60.0 mL/min (>60) 04/05/18 13:24 BUN/Creatinine Ratio 26.7 (6-22) H 04/05/18 13:24 Glucose 92 mg/dL (80-110) 04/05/18 13:24 Calcium 9.4 mg/dL (8.4-10.2) 04/05/18 13:24 Total Bilirubin 1.1 mg/dL (0.2-1.3) 04/05/18 13:24 AST 35 IU/L (14-36) 04/05/18 13:24 ALT 21 IU/L (9-52) 04/05/18 13:24 Alkaline Phosphatase 96 U/L (38-126) 04/05/18 13:24 Total Protein 6.9 g/dL (6.3-8.2) 04/05/18 13:24 Albumin 4.4 g/dL (3.5-5.0) 04/05/18 13:24 Globulin 2.5 g/dL (1.7-4.1) 04/05/18 13:24 Albumin/Globulin Ratio 1.8 (1.0-2.8) 04/05/18 13:24 Assessment and Plan (1) Primary cancer of left breast with metastasis to other site Problem details: Presented with weight loss, abdominal pain, and diarrhea. CT ab/pelvis 01/25/2018: diffuse osseous metastasis. EGD/C-scope 01/25/2018: edematous mucosa in the cardia, gastric fundus and duodenm, congested mucosa in the entire examined colon; colon/gastric biopsies found metastatic carcinoma consistent with lobular carcinoma of breast. CT chest 01/27/2018 showed no pulmonary parenchymal nodules or adenopathy, but it showed diffuse osseous predominantly blastic metastasis. Infiltration of the proximal right humerus was noted. On January 27, 2018 patient underwent left breast ultrasound-guided core biopsies:invasive lobular carcinoma, intermediate grade, 4 of 9 cores involved, 6 mm in greatest length of carcinoma, without identifiable lymphovascular invasion, without ductal carcinoma in-situ present, ER positive (3+, 100% of cells), DE positive (1+, 30% of cells), Ki 67 intermediate (10% of cells), HER2 IHC equivocal for HER2 (overexpression 2+, 20% of cells), FISH negative by FISH. MRI of the brain on 02/11/2018. Brain MRI: diffuse thickening and enhancement throughout the dura including the falx, suspicious for diffuse meningeal metastasis. Assessment: Patient was started on endocrine therapy on 02/08/2018 with fulvestrant. On 02/19/2018 patient was started on palbociclib 125 mg once a day 3 weeks on and 1 week off. Clinically, patient has responded to the treatment. Patient has improved appetite and increased weight. Patient's abdominal pain has almost completely resolved. The breast nodule as well as the subcutaneous nodule have decreased in size. However diarrhea persists and dizziness also persists. Because of the pain associated with with injection of fulvestrant, patient would like to switch to oral medications. I talked with the patient that there is evidence that fulvestrant works better than the oral aromatase inhibitor. My concern is that oral medications may not be absorbed readily given the gastrointestinal involvement by the breast cancer. Patient argued that the pain associated with the use of the fulvestrant is bad and far worse than the lumbar puncture. In addition she is taking oral medications palbociclib and it seems that the palbociclib can be absorbed without any problems. She is requesting that the fulvestrant be switched to oral medications. I talked with her about the pros and cons. Patient understood and decided to switch to letrozole. She said she likes to try and see if it works. If not, she is willing to switch back to fulvestrant. Plan: 1. Stop Fulvestrant 2. Letrazole 2.5 mg daily, 90#, 6 refills 3. Adjust Ibrance to 100 mg daily, 3 weeks on and 1 week off 4. Follow up on LP results . 5. Bone scan 6. RTC on 3 weeks, CBC, CMP with next visit. (2) Bone metastasis Assessment: CT chest 01/27/2018 showed no pulmonary parenchymal nodules or adenopathy, but it showed diffuse osseous predominantly blastic metastasis and infiltration of the proximal right humerus was noted. Previously, we have discussed with the patient about the use of Xgeva. However we have not received the clearance from her dentist yet. We will tentatively hold on the Xgeva. Plan: 1. Pending dentist clearance. 2. Xgeve 120 mg subQ monthly once cleared from her dentist. (3) Cachexia Assessment and Plan: Patient is gaining weight suggestive of treatment effect. We will continue current treatment without any changes. (4) Anemia Laboratory tests from December 2017 clearly indicated that the patient has both folic acid deficiency as well as vitamin B12 deficiency. In addition the anemia also may be related to the underlying metastatic breast cancer itself. No iron deficiency. Plan: 1. Cont Vitamin B12 1000 mcg subQ monthly 2. Cont folic acid 2 mg daily (5) Diarrhea Diarrhea is related to metastatic involvement of the gastrointestinal system by her lobular breast cancer. 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 Need to follow up on LP results. (7) Pain Abdomen pain is related to metastatic involvement of the GI tract by her lobular breast cancer. Now improving. Plan: 1. Oxycodone 5 mg x 60#, 1# q4-6h prn 2. OTC stool softener as needed.
[2018-04-05 14:54] VITALS: BP 132/80; PULSE 73; RESP 18; TEMP 36.9; O2SAT 100
--- NOTE | 2018-04-05 14:57 | P.PNONC_ITS ---
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 On 02/08/2018, patient was started on fulvestrant. On 02/19/2018, she was started on Palbociclib 125 mg daily, 3 weeks on and 1 week off. Because of the meningeal metastasis concern, patient was referred to [facility] for second opinion. Today, [facility] Patient herself reported that the left breast mass seems to be decreasing in size and the subcutaneous nodule previously palpable on the left lower chest also have decreased significantly. In addition patient reported improving appetite. The abdominal pain has improved significantly. Patient has gained weight about 9 lb since after she started the treatment. However patient reported that her dizziness persists and she is not steady on her feet. She is able to walk by herself but usually will need to hold onto objects to keep balance. She denies any headache. No nausea and no vomiting. Her diarrhea also has remained about the same and there has been no improvement. Patient was evaluated by Dr. Sparks on 03/25/2018. Dr. Sparks overall agreed with the treatment plan. He called me and we discussed the case over the phone. Dr. Sparks recommended lumbar puncture for further evaluation, which happened on 04/02. Cytology is still pending. Patient is complaining that the pain with injection of the fulvestrant is far worse than the lumbar puncture she had at the [facility]. She is requesting oral medications instead of the injection. Patient claimed that she has already seen her dentist. I have not received the clearance for Xgeva/Zometa yet. On 03/12/2018, palbociclib has been on hold given neutropenia. She has completed the Levaquin. No fever and no chills. - Patient Self-Reported Symptoms SR Constitution: Weight loss/gain (gaining weight now. ), Fatigue/Malaise, Night Sweats SR Cardiovascular issues: Dizzy/lightheaded SR Gastrointestinal issues: Poor or no appetite, Change in bowel pattern, Nausea , Vomiting, Diarrhea, Abdominal pain, Heartburn SR Musculoskeletal issues: Cold hands or feet SR Neuro issues: Lightheaded/dizzy, Difficulty balancing SR Hematologic issues: Slow healing SR Endocrine issues: Cold intolerance - Additional ROS All systems PM: reviewed and no additional remarkable complaints except as stated Home Medications and Allergies Home Medications Medication Instructions Recorded Confirmed Type lorazepam [Ativan] 0.5 mg SUBLINGUAL 4-6XD PRN #60 tab 02/04/18 02/25/18 Rx levofloxacin [Levaquin] 500 mg PO DAILY #14 tab 03/12/18 04/05/18 Rx oxycodone 5 mg PO Q4-6H PRN #60 cap 03/12/18 Rx letrozole [Femara] 2.5 mg PO DAILY 4 Days #90 tab 04/05/18 Rx palbociclib [Ibrance] 100 mg PO DAILY #21 cap 04/05/18 Rx Allergies Allergy/AdvReac Type Severity Reaction Status Date / Time No Known Drug Allergies Allergy Verified 02/04/18 09:11 Exam Vital signs: Last Vital Signs Temp 98.4 F 04/05/18 14:54 Pulse 73 04/05/18 14:54 Resp 18 04/05/18 14:54 BP 132/80 04/05/18 14:54 Pulse Ox 100 04/05/18 14:54 ECOG 1 Narrative: Constitutional: well developed, thin, well groomed, pleasant and cooperative, accompanied by her [id number] today. HEENT: NCAT, EOMI, PERRLA, anicteric sclera, mild hearing difficulty; Oral mucus membrane moist and without ulcers. Neck: Supple, symmetrical, and tracheal midline; No palpable thyromegaly and no palpable lymph nodes. Respiratory: No use of accessory muscles. Clear to auscultation, and no wheezes or rales or rubs. Cardiovascular: Regular rate and rhythm, S1 and S2 normal, no murmurs gallops or rubs. No JVD. No pitting edema of lower extremities. Abdomen: Soft, nontender, non-distended, bowel sounds normal, no palpable organomegaly, no hernia, no palpable masses. Lower extremities: No palpable pedal edema. Lymphatic: no palpable lymph nodes in the neck, axillae, or groins. Musculoskeletal: normal gait and station, no clubbing, no cyanosis, no pitting edema. Skin: no rashes, no ulcers, no petechiae Neurological: Awake and alert and oriented x3. CN II-XII grossly intact. No focal motor or sensory deficit. Psychiatric: Good judgment, good insight, normal affect, normal thought process , cooperative, no depression, no anxiety. Results - Labs Laboratory Last Values WBC 2.4 X10^3/uL (4.5-11.0) L 04/05/18 13:24 RBC 2.36 X10^6/uL (4.0-5.2) L 04/05/18 13:24 Hgb 9.4 g/dL (12.0-16.0) L 04/05/18 13:24 Hct 27.3 % (36-46) L 04/05/18 13:24 MCV 115.5 fL (80-100) H 04/05/18 13:24 MCH 39.7 PG (26-34) H 04/05/18 13:24 MCHC 34.4 % (30-36) 04/05/18 13:24 RDW 18.6 % (11.6-14.8) H 04/05/18 13:24 Plt Count 148 X10^3/uL (150-400) L 04/05/18 13:24 Neut % (Auto) 59.2 % (50-75) 04/05/18 13:24 Lymph % (Auto) 27.2 % (25-40) 04/05/18 13:24 [place] % (Auto) 10.3 % (3-14) 04/05/18 13:24 Eos % (Auto) 1.0 % (2-4) L 04/05/18 13:24 Baso % (Auto) 2.3 % (0-2) H 04/05/18 13:24 Neut # (Auto) 1400 /uL (7203-2911) L 04/05/18 13:24 Total Counted 100 03/12/18 09:26 Seg Neutrophils % 20.0 % (38-70) L 03/12/18 09:26 Lymphocytes % (Manual) 68.0 % (25-45) H 03/12/18 09:26 Atypical Lymphs % 12.0 % (-0) H 03/12/18 09:26 Neutrophils # (Manual) 180 /uL (6142-7188) L 03/12/18 09:26 RBC Morphology See below 04/05/18 13:24 Poikilocytosis 1+ H 03/12/18 09:26 Anisocytosis 1+ H 04/05/18 13:24 Macrocytosis 3+ H 04/05/18 13:24 Sodium 137 mmol/L (137-145) 04/05/18 13:24 Potassium 4.4 mmol/L (3.4-5.1) 04/05/18 13:24 Chloride 102 mmol/L (98-107) 04/05/18 13:24 Carbon Dioxide 25 mmol/L (22-32) 04/05/18 13:24 BUN 16 mg/dL (7-17) 04/05/18 13:24 Creatinine 0.60 mg/dL (0.52-1.04) 04/05/18 13:24 Estimated GFR > 60.0 mL/min (>60) 04/05/18 13:24 BUN/Creatinine Ratio 26.7 (6-22) H 04/05/18 13:24 Glucose 92 mg/dL (80-110) 04/05/18 13:24 Calcium 9.4 mg/dL (8.4-10.2) 04/05/18 13:24 Total Bilirubin 1.1 mg/dL (0.2-1.3) 04/05/18 13:24 AST 35 IU/L (14-36) 04/05/18 13:24 ALT 21 IU/L (9-52) 04/05/18 13:24 Alkaline Phosphatase 96 U/L (38-126) 04/05/18 13:24 Total Protein 6.9 g/dL (6.3-8.2) 04/05/18 13:24 Albumin 4.4 g/dL (3.5-5.0) 04/05/18 13:24 Globulin 2.5 g/dL (1.7-4.1) 04/05/18 13:24 Albumin/Globulin Ratio 1.8 (1.0-2.8) 04/05/18 13:24 Assessment and Plan (1) Primary cancer of left breast with metastasis to other site Problem details: Presented with weight loss, abdominal pain, and diarrhea. CT ab /pelvis 01/25/2018: diffuse osseous metastasis. EGD/C-scope 01/25/2018: edematous mucosa in the cardia, gastric fundus and duodenm, congested mucosa in the entire examined colon; colon/gastric biopsies found metastatic carcinoma consistent with lobular carcinoma of breast. CT chest 01/27/2018 showed no pulmonary parenchymal nodules or adenopathy, but it showed diffuse osseous predominantly blastic metastasis. Infiltration of the proximal right humerus was noted. On January 27, 2018 patient underwent left breast ultrasound-guided core biopsies:invasive lobular carcinoma, intermediate grade, 4 of 9 cores involved, 6 mm in greatest length of carcinoma, without identifiable lymphovascular invasion, without ductal carcinoma in-situ present, ER positive ( 3+, 100% of cells), HI positive (1+, 30% of cells), Ki 67 intermediate (10% of cells), HER2 IHC equivocal for HER2 (overexpression 2+, 20% of cells), FISH negative by FISH. MRI of the brain on 02/11/2018. Brain MRI: diffuse thickening and enhancement throughout the dura including the falx, suspicious for diffuse meningeal metastasis. Assessment: Patient was started on endocrine therapy on 02/08/2018 with fulvestrant. On patient was started on palbociclib 125 mg once a day 3 weeks on and 1 week off. Clinically, patient has responded to the treatment. Patient has improved appetite and increased weight. Patient's abdominal pain has almost completely resolved. The breast nodule as well as the subcutaneous nodule have decreased in size. However diarrhea persists and dizziness also persists. Because of the pain associated with with injection of fulvestrant, patient would like to switch to oral medications. I talked with the patient that there is evidence that fulvestrant works better than the oral aromatase inhibitor. My concern is that oral medications may not be absorbed readily given the gastrointestinal involvement by the breast cancer. Patient argued that the pain associated with the use of the fulvestrant is bad and far worse than the lumbar puncture. In addition she is taking oral medications palbociclib and it seems that the palbociclib can be absorbed without any problems. She is requesting that the fulvestrant be switched to oral medications. I talked with her about the pros and cons. Patient understood and decided to switch to letrozole. She said she likes to try and see if it works. If not, she is willing to switch back to fulvestrant. Plan: 1. Stop Fulvestrant 2. Letrazole 2.5 mg daily, 90#, 6 refills 3. Adjust Ibrance to 100 mg daily, 3 weeks on and 1 week off 4. Follow up on LP results . 5. Bone scan 6. RTC on 3 weeks, CBC, CMP with next visit. (2) Bone metastasis Assessment: CT chest 01/27/2018 showed no pulmonary parenchymal nodules or adenopathy, but it showed diffuse osseous predominantly blastic metastasis and infiltration of the proximal right humerus was noted. Previously, we have discussed with the patient about the use of Xgeva. However we have not received the clearance from her dentist yet. We will tentatively hold on the Xgeva. Plan: 1. Pending dentist clearance. 2. Xgeve 120 mg subQ monthly once cleared from her dentist. (3) Cachexia Assessment and Plan: Patient is gaining weight suggestive of treatment effect. We will continue current treatment without any changes. (4) Anemia Laboratory tests from December 2017 clearly indicated that the patient has both folic acid deficiency as well as vitamin B12 deficiency. In addition the anemia also may be related to the underlying metastatic breast cancer itself. No iron deficiency. Plan: 1. Cont Vitamin B12 1000 mcg subQ monthly 2. Cont folic acid 2 mg daily (5) Diarrhea Diarrhea is related to metastatic involvement of the gastrointestinal system by her lobular breast cancer. 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 Need to follow up on LP results. (7) Pain Abdomen pain is related to metastatic involvement of the GI tract by her lobular breast cancer. Now improving. Plan: 1. Oxycodone 5 mg x 60#, 1# q4-6h prn 2. OTC stool softener as needed.
--- NOTE | 2018-04-08 13:42 | PC.NURSE ---
Per patient's daughter's request: submitted letrozole script to [facility], received by [facility] at [phone].
--- NOTE | 2018-04-15 10:27 | PC.NURSE ---
Received PA for Ibrance 100mg from [facility]: approval code [id number] from 03-30-2018 to 04-28-2021. letrozole is shipped by [employer], Ibrance 100mg is shipped from [facility]
--- NOTE | 2018-04-20 10:41 | ONC.SCHED ---
04/19/18 Keely had her labs drawn at [facility] before her bone scan per phone call to her 04/20/18
[2018-04-26 13:36] VITALS: BP 132/74; PULSE 84; RESP 19; TEMP 37.1; O2SAT 100
--- NOTE | 2018-04-26 13:49 | ONC.PN ---
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 On 02/08/2018, patient was started on fulvestrant. On 02/19/2018, she was started on Palbociclib 125 mg daily, 3 weeks on and 1 week off. Because of the meningeal metastasis concern, patient was referred to [facility] for second opinion and was evaluated by Dr. Sparks on 03/25/2018. Dr. Sparks agreed with the treatment plan. Patient underwent LP on 04/02/2018 at [facility] and the cytology was negative for malignancy. During her last visit on 04/05/2018, patient requested that the injection of fulvestrant be switched to oral medications. After discussion, patient agreed to try letrozole 2.5 mg once a day. However, for unknown reason, patient just received the medication letrozole on April 20 2018 and she started since then. During her last visit, we also give a new prescription of Ibrance 100 mg once a day 3 weeks on and 1 week off. Patient has a new insurance carrier. And the detectable is 4500 dollars. And the co-pay is also very high. Patient has not started taking the eye breasts yet. She was asking if there is any other medications less expensive than the Ibrance. Clinically, patient reported that the abdominal symptoms seems to be coming back. Patient is complaining some abdominal pain with nausea. Patient actually had 1 episode of vomiting. Patient is still having watery diarrhea. He denies any headache. But she said she has a little bit achiness in the head. Patient still is experiencing dizziness. She has gained weight. Patient is scheduled for an MRI evaluation at the [facility]. Patient however has not decided because of the commuting difficulties. - Patient Self-Reported Symptoms SR Constitution: Fatigue/Malaise, Night Sweats SR eye issues: Vision changes SR Cardiovascular issues: Dizzy/lightheaded SR Skin issues: Hair loss or scalp prob SR Gastrointestinal issues: Vomiting, Diarrhea SR Musculoskeletal issues: Cold hands or feet SR Neuro issues: Lightheaded/dizzy, Difficulty balancing SR Hematologic issues: Slow healing SR Endocrine issues: Cold intolerance - Additional ROS All systems PM: reviewed and no additional remarkable complaints except as stated Home Medications and Allergies Home Medications Medication Instructions Recorded Confirmed Type lorazepam [Ativan] 0.5 mg SUBLINGUAL 4-6XD PRN #60 tab 02/04/18 04/26/18 Rx levofloxacin [Levaquin] 500 mg PO DAILY #14 tab 03/12/18 04/26/18 Rx oxycodone 5 mg PO Q4-6H PRN #60 cap 03/12/18 04/26/18 Rx palbociclib [Ibrance] 100 mg PO DAILY #21 cap 04/05/18 04/26/18 Rx letrozole 2.5 mg PO DAILY #90 tab 04/08/18 04/26/18 Rx Allergies Allergy/AdvReac Type Severity Reaction Status Date / Time No Known Drug Allergies Allergy Verified 02/04/18 09:11 Exam Vital signs: Last Vital Signs Temp 98.7 F 04/26/18 13:36 Pulse 84 04/26/18 13:36 Resp 19 04/26/18 13:36 BP 132/74 04/26/18 13:36 Pulse Ox 100 04/26/18 13:36 ECOG 1 Narrative: Constitutional: well developed, thin, well groomed, pleasant and cooperative, accompanied by her step daughter today. HEENT: NCAT, EOMI, PERRLA, anicteric sclera, mild hearing difficulty; Oral mucus membrane moist and without ulcers. Neck: Supple, symmetrical, and tracheal midline; No palpable thyromegaly and no palpable lymph nodes. Respiratory: No use of accessory muscles. Clear to auscultation, and no wheezes or rales or rubs. Cardiovascular: Regular rate and rhythm, S1 and S2 normal, no murmurs gallops or rubs. No JVD. Abdomen: Soft, nontender, non-distended, bowel sounds normal, no palpable organomegaly, no hernia, no palpable masses. Lower extremities: No pitting edema of lower extremities. Lymphatic: no palpable lymph nodes in the neck, axillae, or groins. Musculoskeletal: normal gait and station, no clubbing, no cyanosis, no pitting edema. Skin: no rashes, no ulcers, no petechiae Neurological: Awake and alert and oriented x3. CN II-XII grossly intact. No focal motor or sensory deficit. Psychiatric: Good judgment, good insight, normal affect, normal thought process, cooperative, no depression, no anxiety. Results - Labs Laboratory Last Values WBC 2.4 X10^3/uL (4.5-11.0) L 04/05/18 13:24 RBC 2.36 X10^6/uL (4.0-5.2) L 04/05/18 13:24 Hgb 9.4 g/dL (12.0-16.0) L 04/05/18 13:24 Hct 27.3 % (36-46) L 04/05/18 13:24 MCV 115.5 fL (80-100) H 04/05/18 13:24 MCH 39.7 PG (26-34) H 04/05/18 13:24 MCHC 34.4 % (30-36) 04/05/18 13:24 RDW 18.6 % (11.6-14.8) H 04/05/18 13:24 Plt Count 148 X10^3/uL (150-400) L 04/05/18 13:24 Neut % (Auto) 59.2 % (50-75) 04/05/18 13:24 Lymph % (Auto) 27.2 % (25-40) 04/05/18 13:24 [place] % (Auto) 10.3 % (3-14) 04/05/18 13:24 Eos % (Auto) 1.0 % (2-4) L 04/05/18 13:24 Baso % (Auto) 2.3 % (0-2) H 04/05/18 13:24 Neut # (Auto) 1400 /uL (5125-9013) L 04/05/18 13:24 Total Counted 100 03/12/18 09:26 Seg Neutrophils % 20.0 % (38-70) L 03/12/18 09:26 Lymphocytes % (Manual) 68.0 % (25-45) H 03/12/18 09:26 Atypical Lymphs % 12.0 % (-0) H 03/12/18 09:26 Neutrophils # (Manual) 180 /uL (5057-9241) L 03/12/18 09:26 RBC Morphology See below 04/05/18 13:24 Poikilocytosis 1+ H 03/12/18 09:26 Anisocytosis 1+ H 04/05/18 13:24 Macrocytosis 3+ H 04/05/18 13:24 Sodium 137 mmol/L (137-145) 04/05/18 13:24 Potassium 4.4 mmol/L (3.4-5.1) 04/05/18 13:24 Chloride 102 mmol/L (98-107) 04/05/18 13:24 Carbon Dioxide 25 mmol/L (22-32) 04/05/18 13:24 BUN 16 mg/dL (7-17) 04/05/18 13:24 Creatinine 0.60 mg/dL (0.52-1.04) 04/05/18 13:24 Estimated GFR > 60.0 mL/min (>60) 04/05/18 13:24 BUN/Creatinine Ratio 26.7 (6-22) H 04/05/18 13:24 Glucose 92 mg/dL (80-110) 04/05/18 13:24 Calcium 9.4 mg/dL (8.4-10.2) 04/05/18 13:24 Total Bilirubin 1.1 mg/dL (0.2-1.3) 04/05/18 13:24 AST 35 IU/L (14-36) 04/05/18 13:24 ALT 21 IU/L (9-52) 04/05/18 13:24 Alkaline Phosphatase 96 U/L (38-126) 04/05/18 13:24 Total Protein 6.9 g/dL (6.3-8.2) 04/05/18 13:24 Albumin 4.4 g/dL (3.5-5.0) 04/05/18 13:24 Globulin 2.5 g/dL (1.7-4.1) 04/05/18 13:24 Albumin/Globulin Ratio 1.8 (1.0-2.8) 04/05/18 13:24 Assessment and Plan (1) Primary cancer of left breast with metastasis to other site Problem details: Presented with weight loss, abdominal pain, and diarrhea. CT ab/pelvis 01/25/2018: diffuse osseous metastasis. EGD/C-scope 01/25/2018: edematous mucosa in the cardia, gastric fundus and duodenm, congested mucosa in the entire examined colon; colon/gastric biopsies found metastatic carcinoma consistent with lobular carcinoma of breast. CT chest 01/27/2018 showed no pulmonary parenchymal nodules or adenopathy, but it showed diffuse osseous predominantly blastic metastasis. Infiltration of the proximal right humerus was noted. On January 27, 2018 patient underwent left breast ultrasound-guided core biopsies:invasive lobular carcinoma, intermediate grade, 4 of 9 cores involved, 6 mm in greatest length of carcinoma, without identifiable lymphovascular invasion, without ductal carcinoma in-situ present, ER positive (3+, 100% of cells), NH positive (1+, 30% of cells), Ki 67 intermediate (10% of cells), HER2 IHC equivocal for HER2 (overexpression 2+, 20% of cells), FISH negative by FISH. MRI of the brain on 02/11/2018. Brain MRI: diffuse thickening and enhancement throughout the dura including the falx, suspicious for diffuse meningeal metastasis. Assessment: Patient was started on endocrine therapy on 02/08/2018 with fulvestrant. On 02/19/2018 patient was started on palbociclib 125 mg once a day 3 weeks on and 1 week off. On 04/20/2018. she started Letrazole. Ibrance was prescribed at 100 mg 3 weeks on and 1 week off. Due to high co-pay, she has not called the pharmacy for delivery. She was wondering if there is any other medications that are less expensive. Clinically patient has some signs or symptoms suggestive of disease progression for example more gastrointestinal symptoms than before. Today once again I talked with her that in my opinion fulvestrant works better than the letrozole. I would highly recommend that her consider using the fulvestrant especially she has a problem with gastrointestinal signs or symptoms that may hamper the absorption of the oral medications. However patient is adamant that she wanted to try the oral medications first. As far as the co-pay for palbociclib is concerned, I will have our social service liaison Mily to talk with the patient about co-pay assistance. As far as I understand, for commercial insurance, patient should have a zero copay. I also reviewed the bone scan results with the patient. There are no gross abnormal findings on the bone scan. I talked with the patient that it is reassuring that there is no clear evidence of bone metastasis. Finally I talked with her that she should continue follow-up at the [facility]. Patient voiced understanding. Plan: 1. Continue Letrazole 2.5 mg daily, 90#, 6 refills 3. Ibrance to 100 mg daily, 3 weeks on and 1 week off once received 4. MACHINIST BRAKE Mily will discuss with patient about co-pay assistance 5. RTC on 3 weeks, CBC, CMP with next visit. 6. [facility] followup as scheduled. (2) Bone metastasis Assessment: CT chest 01/27/2018 showed no pulmonary parenchymal nodules or adenopathy, but it showed diffuse osseous predominantly blastic metastasis and infiltration of the proximal right humerus was noted. Previously, we have discussed with the patient about the use of Xgeva. However we have not received the clearance from her dentist yet. The bone scan showed no evidence of osseus metastasis. It is quite surprising. It may be because of the use of the endocrine therapy and Ibrance. I will temporarily hold the Xgeva. Plan: Temporarily hold Xgeve 120 mg subQ monthly (3) Cachexia Assessment and Plan: Patient is gaining weight suggestive of treatment effect. We will continue current treatment without any changes. (4) Anemia Laboratory tests from December 2017 clearly indicated that the patient has both folic acid deficiency as well as vitamin B12 deficiency. In addition the anemia also may be related to the underlying metastatic breast cancer itself. No iron deficiency. Plan: 1. Cont Vitamin B12 1000 mcg subQ monthly 2. Cont folic acid 2 mg daily (5) Diarrhea Diarrhea is related to metastatic involvement of the gastrointestinal system by her lobular breast cancer. 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 But LP cytology negative. I encourage her to follow up at [facility] (7) Pain Abdomen pain is related to metastatic involvement of the GI tract by her lobular breast cancer. Now improving. Plan: 1. Oxycodone 5 mg x 60#, 1# q4-6h prn 2. OTC stool softener as needed.
--- NOTE | 2018-04-26 13:53 | P.PNONC_ITS ---
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 On 02/08/2018, patient was started on fulvestrant. On 02/19/2018, she was started on Palbociclib 125 mg daily, 3 weeks on and 1 week off. Because of the meningeal metastasis concern, patient was referred to [facility] for second opinion and was evaluated by Dr. Sparks on 03/25/2018. Dr. Sparks agreed with the treatment plan. Patient underwent LP on 04/02/2018 at [facility] and the cytology was negative for malignancy. During her last visit on 04/05/2018, patient requested that the injection of fulvestrant be switched to oral medications. After discussion, patient agreed to try letrozole 2.5 mg once a day. However, for unknown reason, patient just received the medication letrozole on April 20 2018 and she started since then. During her last visit, we also give a new prescription of Ibrance 100 mg once a day 3 weeks on and 1 week off. Patient has a new insurance carrier. And the detectable is 4500 dollars. And the co-pay is also very high. Patient has not started taking the eye breasts yet. She was asking if there is any other medications less expensive than the Ibrance. Clinically, patient reported that the abdominal symptoms seems to be coming back. Patient is complaining some abdominal pain with nausea. Patient actually had 1 episode of vomiting. Patient is still having watery diarrhea. He denies any headache. But she said she has a little bit achiness in the head. Patient still is experiencing dizziness. She has gained weight. Patient is scheduled for an MRI evaluation at the [facility]. Patient however has not decided because of the commuting difficulties. - Patient Self-Reported Symptoms SR Constitution: Fatigue/Malaise, Night Sweats SR eye issues: Vision changes SR Cardiovascular issues: Dizzy/lightheaded SR Skin issues: Hair loss or scalp prob SR Gastrointestinal issues: Vomiting, Diarrhea SR Musculoskeletal issues: Cold hands or feet SR Neuro issues: Lightheaded/dizzy, Difficulty balancing SR Hematologic issues: Slow healing SR Endocrine issues: Cold intolerance - Additional ROS All systems PM: reviewed and no additional remarkable complaints except as stated Home Medications and Allergies Home Medications Medication Instructions Recorded Confirmed Type lorazepam [Ativan] 0.5 mg SUBLINGUAL 4-6XD PRN #60 tab 02/04/18 04/26/18 Rx levofloxacin [Levaquin] 500 mg PO DAILY #14 tab 03/12/18 04/26/18 Rx oxycodone 5 mg PO Q4-6H PRN #60 cap 03/12/18 04/26/18 Rx palbociclib [Ibrance] 100 mg PO DAILY #21 cap 04/05/18 04/26/18 Rx letrozole 2.5 mg PO DAILY #90 tab 04/08/18 04/26/18 Rx Allergies Allergy/AdvReac Type Severity Reaction Status Date / Time No Known Drug Allergies Allergy Verified 02/04/18 09:11 Exam Vital signs: Last Vital Signs Temp 98.7 F 04/26/18 13:36 Pulse 84 04/26/18 13:36 Resp 19 04/26/18 13:36 BP 132/74 04/26/18 13:36 Pulse Ox 100 04/26/18 13:36 ECOG 1 Narrative: Constitutional: well developed, thin, well groomed, pleasant and cooperative, accompanied by her step daughter today. HEENT: NCAT, EOMI, PERRLA, anicteric sclera, mild hearing difficulty; Oral mucus membrane moist and without ulcers. Neck: Supple, symmetrical, and tracheal midline; No palpable thyromegaly and no palpable lymph nodes. Respiratory: No use of accessory muscles. Clear to auscultation, and no wheezes or rales or rubs. Cardiovascular: Regular rate and rhythm, S1 and S2 normal, no murmurs gallops or rubs. No JVD. Abdomen: Soft, nontender, non-distended, bowel sounds normal, no palpable organomegaly, no hernia, no palpable masses. Lower extremities: No pitting edema of lower extremities. Lymphatic: no palpable lymph nodes in the neck, axillae, or groins. Musculoskeletal: normal gait and station, no clubbing, no cyanosis, no pitting edema. Skin: no rashes, no ulcers, no petechiae Neurological: Awake and alert and oriented x3. CN II-XII grossly intact. No focal motor or sensory deficit. Psychiatric: Good judgment, good insight, normal affect, normal thought process , cooperative, no depression, no anxiety. Results - Labs Laboratory Last Values WBC 2.4 X10^3/uL (4.5-11.0) L 04/05/18 13:24 RBC 2.36 X10^6/uL (4.0-5.2) L 04/05/18 13:24 Hgb 9.4 g/dL (12.0-16.0) L 04/05/18 13:24 Hct 27.3 % (36-46) L 04/05/18 13:24 MCV 115.5 fL (80-100) H 04/05/18 13:24 MCH 39.7 PG (26-34) H 04/05/18 13:24 MCHC 34.4 % (30-36) 04/05/18 13:24 RDW 18.6 % (11.6-14.8) H 04/05/18 13:24 Plt Count 148 X10^3/uL (150-400) L 04/05/18 13:24 Neut % (Auto) 59.2 % (50-75) 04/05/18 13:24 Lymph % (Auto) 27.2 % (25-40) 04/05/18 13:24 [place] % (Auto) 10.3 % (3-14) 04/05/18 13:24 Eos % (Auto) 1.0 % (2-4) L 04/05/18 13:24 Baso % (Auto) 2.3 % (0-2) H 04/05/18 13:24 Neut # (Auto) 1400 /uL (6410-1300) L 04/05/18 13:24 Total Counted 100 03/12/18 09:26 Seg Neutrophils % 20.0 % (38-70) L 03/12/18 09:26 Lymphocytes % (Manual) 68.0 % (25-45) H 03/12/18 09:26 Atypical Lymphs % 12.0 % (-0) H 03/12/18 09:26 Neutrophils # (Manual) 180 /uL (7772-4133) L 03/12/18 09:26 RBC Morphology See below 04/05/18 13:24 Poikilocytosis 1+ H 03/12/18 09:26 Anisocytosis 1+ H 04/05/18 13:24 Macrocytosis 3+ H 04/05/18 13:24 Sodium 137 mmol/L (137-145) 04/05/18 13:24 Potassium 4.4 mmol/L (3.4-5.1) 04/05/18 13:24 Chloride 102 mmol/L (98-107) 04/05/18 13:24 Carbon Dioxide 25 mmol/L (22-32) 04/05/18 13:24 BUN 16 mg/dL (7-17) 04/05/18 13:24 Creatinine 0.60 mg/dL (0.52-1.04) 04/05/18 13:24 Estimated GFR > 60.0 mL/min (>60) 04/05/18 13:24 BUN/Creatinine Ratio 26.7 (6-22) H 04/05/18 13:24 Glucose 92 mg/dL (80-110) 04/05/18 13:24 Calcium 9.4 mg/dL (8.4-10.2) 04/05/18 13:24 Total Bilirubin 1.1 mg/dL (0.2-1.3) 04/05/18 13:24 AST 35 IU/L (14-36) 04/05/18 13:24 ALT 21 IU/L (9-52) 04/05/18 13:24 Alkaline Phosphatase 96 U/L (38-126) 04/05/18 13:24 Total Protein 6.9 g/dL (6.3-8.2) 04/05/18 13:24 Albumin 4.4 g/dL (3.5-5.0) 04/05/18 13:24 Globulin 2.5 g/dL (1.7-4.1) 04/05/18 13:24 Albumin/Globulin Ratio 1.8 (1.0-2.8) 04/05/18 13:24 Assessment and Plan (1) Primary cancer of left breast with metastasis to other site Problem details: Presented with weight loss, abdominal pain, and diarrhea. CT ab /pelvis 01/25/2018: diffuse osseous metastasis. EGD/C-scope 01/25/2018: edematous mucosa in the cardia, gastric fundus and duodenm, congested mucosa in the entire examined colon; colon/gastric biopsies found metastatic carcinoma consistent with lobular carcinoma of breast. CT chest 01/27/2018 showed no pulmonary parenchymal nodules or adenopathy, but it showed diffuse osseous predominantly blastic metastasis. Infiltration of the proximal right humerus was noted. On January 27, 2018 patient underwent left breast ultrasound-guided core biopsies:invasive lobular carcinoma, intermediate grade, 4 of 9 cores involved, 6 mm in greatest length of carcinoma, without identifiable lymphovascular invasion, without ductal carcinoma in-situ present, ER positive ( 3+, 100% of cells), [place] positive (1+, 30% of cells), Ki 67 intermediate (10% of cells), HER2 IHC equivocal for HER2 (overexpression 2+, 20% of cells), FISH negative by FISH. MRI of the brain on 02/11/2018. Brain MRI: diffuse thickening and enhancement throughout the dura including the falx, suspicious for diffuse meningeal metastasis. Assessment: Patient was started on endocrine therapy on 02/08/2018 with fulvestrant. On patient was started on palbociclib 125 mg once a day 3 weeks on and 1 week off. On 04/20/2018. she started Letrazole. Ibrance was prescribed at 100 mg 3 weeks on and 1 week off. Due to high co-pay, she has not called the pharmacy for delivery. She was wondering if there is any other medications that are less expensive. Clinically patient has some signs or symptoms suggestive of disease progression for example more gastrointestinal symptoms than before. Today once again I talked with her that in my opinion fulvestrant works better than the letrozole. I would highly recommend that her consider using the fulvestrant especially she has a problem with gastrointestinal signs or symptoms that may hamper the absorption of the oral medications. However patient is adamant that she wanted to try the oral medications first. As far as the co-pay for palbociclib is concerned, I will have our web content & social media manager Mily to talk with the patient about co-pay assistance. As far as I understand, for commercial insurance, patient should have a zero copay. I also reviewed the bone scan results with the patient. There are no gross abnormal findings on the bone scan. I talked with the patient that it is reassuring that there is no clear evidence of bone metastasis. Finally I talked with her that she should continue follow-up at the [facility]. Patient voiced understanding. Plan: 1. Continue Letrazole 2.5 mg daily, 90#, 6 refills 3. Ibrance to 100 mg daily, 3 weeks on and 1 week off once received 4. CAM MILLING MACHINE OPERATOR Mily will discuss with patient about co-pay assistance 5. RTC on 3 weeks, CBC, CMP with next visit. [facility]. [facility]. (2) Bone metastasis Assessment: CT chest 01/27/2018 showed no pulmonary parenchymal nodules or adenopathy, but it showed diffuse osseous predominantly blastic metastasis and infiltration of the proximal right humerus was noted. Previously, we have discussed with the patient about the use of Xgeva. However we have not received the clearance from her dentist yet. The bone scan showed no evidence of osseus metastasis. It is quite surprising. It may be because of the use of the endocrine therapy and Ibrance. I will temporarily hold the Xgeva. Plan: Temporarily hold Xgeve 120 mg subQ monthly (3) Cachexia Assessment and Plan: Patient is gaining weight suggestive of treatment effect. We will continue current treatment without any changes. (4) Anemia Laboratory tests from December 2017 clearly indicated that the patient has both folic acid deficiency as well as vitamin B12 deficiency. In addition the anemia also may be related to the underlying metastatic breast cancer itself. No iron deficiency. Plan: 1. Cont Vitamin B12 1000 mcg subQ monthly 2. Cont folic acid 2 mg daily (5) Diarrhea Diarrhea is related to metastatic involvement of the gastrointestinal system by her lobular breast cancer. 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 But LP cytology negative. I encourage her to follow up at [facility] (7) Pain Abdomen pain is related to metastatic involvement of the GI tract by her lobular breast cancer. Now improving. Plan: 1. Oxycodone 5 mg x 60#, 1# q4-6h prn 2. OTC stool softener as needed.
--- NOTE | 2018-04-27 11:40 | ONC.NAV ---
Addendum entered and electronically signed by iMly Carlos DEVIN 04/27/18 12:50: The [employer] Together Savings card is actually not for 30-days of free meds, it is for co-pay support starting with this next shipment, through the expiration date of 03/29/2020. It will cover her co-pays at 100% all the way up to $25,000. SLAT BASKET MAKER MACHINE called both [facility] and family to update them. Original Note: Description: Co-Pay Assistance/Ibrance Activity: Pt shared with this SLAT BASKET MAKER MACHINE that her insurance has now changed, and now she is facing a large out of pocket co-pay for her Ibrance. SLAT BASKET MAKER MACHINE was able to download an Rx Savings card from [employer] which is good for 30-days free medication. Called [facility] pharmacy and updated them with the card info, they will move forward with shipment. Will plan to work with patient today in applying for long-term co-pay assistance from whichever Foundation has funding. Pleas see below the pharmacy card details for this free shipment: BIN: [id number] GROUP: [id number] ID#: [id number] EXPIRATION DATE: 03/29/2020 EFFECTIVE: 04/26/18
--- NOTE | 2018-05-04 09:14 | ONC.NAV ---
Description: [place] Activity: Completed a new medical priority boading pass for pt, scanned and emailed to her.
--- NOTE | 2018-05-17 09:33 | ONC.PN ---
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 On 02/08/2018, patient was started on fulvestrant. On 02/19/2018, she was started on Palbociclib 125 mg daily, 3 weeks on and 1 week off. Because of the meningeal metastasis concern, patient was referred to [facility] for second opinion and was evaluated by Dr. Sparks on 03/25/2018. Dr. Sparks agreed with the treatment plan. Patient underwent LP on 04/02/2018 at [facility] and the cytology was negative for malignancy. During her last visit on 04/05/2018, patient requested that the injection of fulvestrant be switched to oral medications. After discussion, patient agreed to try letrozole 2.5 mg once a day. However, for unknown reason, patient received letrozole on April 20, 2018 and she started since then. Patient however has not decided because of the commuting difficulties. She has chest pain, pretty painful, comes and goes. She has had 3-4 incidences. It started all of a sudden, right in the middle of the sternum and radiation outs. It lasts about half a hours. The it will diminish. She is having a lot of drenching night sweats. She felt like hot flashes. She is still having diarrhea, usual in the morning. No fever. She quickly gets full when eating. Appetite declines in the afternoon. She is running out of the ibrance. And her letrzole is running low. - Patient Self-Reported Symptoms SR Constitution: Fatigue/Malaise, Night Sweats SR eye issues: Vision changes SR Cardiovascular issues: Dizzy/lightheaded SR Skin issues: Hair loss or scalp prob SR Gastrointestinal issues: Vomiting, Diarrhea SR Musculoskeletal issues: Cold hands or feet SR Neuro issues: Lightheaded/dizzy, Difficulty balancing SR Hematologic issues: Slow healing SR Endocrine issues: Cold intolerance - Additional ROS All systems PM: reviewed and no additional remarkable complaints except as stated Home Medications and Allergies Home Medications Medication Instructions Recorded Confirmed Type lorazepam [Ativan] 0.5 mg SUBLINGUAL 4-6XD PRN #60 tab 02/04/18 05/17/18 Rx levofloxacin [Levaquin] 500 mg PO DAILY #14 tab 03/12/18 05/17/18 Rx letrozole 2.5 mg PO DAILY #90 tab 05/17/18 Rx oxycodone 5 mg PO Q4-6H PRN #60 cap 05/17/18 Rx palbociclib [Ibrance] 100 mg PO DAILY #21 cap 05/17/18 Rx Allergies Allergy/AdvReac Type Severity Reaction Status Date / Time No Known Drug Allergies Allergy Verified 02/04/18 09:11 Exam Vital signs: Last Vital Signs Temp 98.8 F 05/17/18 15:38 Pulse 69 05/17/18 15:38 Resp 20 05/17/18 15:38 BP 140/86 05/17/18 15:38 Pulse Ox 100 05/17/18 15:38 ECOG 1 Narrative: Constitutional: well developed, thin, well groomed, pleasant and cooperative, accompanied by her step daughter today. HEENT: NCAT, EOMI, PERRLA, anicteric sclera, mild hearing difficulty; Oral mucus membrane moist and without ulcers. Neck: Supple, symmetrical, and tracheal midline; No palpable thyromegaly and no palpable lymph nodes. Respiratory: No use of accessory muscles. Clear to auscultation, and no wheezes or rales or rubs. Cardiovascular: Regular rate and rhythm, S1 and S2 normal, no murmurs gallops or rubs. No JVD. Abdomen: Soft, nontender, non-distended, bowel sounds normal, no palpable organomegaly, no hernia, no palpable masses. Lower extremities: No pitting edema of lower extremities. Lymphatic: no palpable lymph nodes in the neck, axillae, or groins. Musculoskeletal: normal gait and station, no clubbing, no cyanosis, no pitting edema. Skin: no rashes, no ulcers, no petechiae Neurological: Awake and alert and oriented x3. CN II-XII grossly intact. No focal motor or sensory deficit. Psychiatric: Good judgment, good insight, normal affect, normal thought process, cooperative, no depression, no anxiety. Results - Labs Laboratory Last Values WBC 2.4 X10^3/uL (4.5-11.0) L 04/05/18 13:24 RBC 2.36 X10^6/uL (4.0-5.2) L 04/05/18 13:24 Hgb 9.4 g/dL (12.0-16.0) L 04/05/18 13:24 Hct 27.3 % (36-46) L 04/05/18 13:24 MCV 115.5 fL (80-100) H 04/05/18 13:24 MCH 39.7 PG (26-34) H 04/05/18 13:24 MCHC 34.4 % (30-36) 04/05/18 13:24 RDW 18.6 % (11.6-14.8) H 04/05/18 13:24 Plt Count 148 X10^3/uL (150-400) L 04/05/18 13:24 Neut % (Auto) 59.2 % (50-75) 04/05/18 13:24 Lymph % (Auto) 27.2 % (25-40) 04/05/18 13:24 [place] % (Auto) 10.3 % (3-14) 04/05/18 13:24 Eos % (Auto) 1.0 % (2-4) L 04/05/18 13:24 Baso % (Auto) 2.3 % (0-2) H 04/05/18 13:24 Neut # (Auto) 1400 /uL (9618-5873) L 04/05/18 13:24 Total Counted 100 03/12/18 09:26 Seg Neutrophils % 20.0 % (38-70) L 03/12/18 09:26 Lymphocytes % (Manual) 68.0 % (25-45) H 03/12/18 09:26 Atypical Lymphs % 12.0 % (-0) H 03/12/18 09:26 Neutrophils # (Manual) 180 /uL (0586-8608) L 03/12/18 09:26 RBC Morphology See below 04/05/18 13:24 Poikilocytosis 1+ H 03/12/18 09:26 Anisocytosis 1+ H 04/05/18 13:24 Macrocytosis 3+ H 04/05/18 13:24 Sodium 137 mmol/L (137-145) 04/05/18 13:24 Potassium 4.4 mmol/L (3.4-5.1) 04/05/18 13:24 Chloride 102 mmol/L (98-107) 04/05/18 13:24 Carbon Dioxide 25 mmol/L (22-32) 04/05/18 13:24 BUN 16 mg/dL (7-17) 04/05/18 13:24 Creatinine 0.60 mg/dL (0.52-1.04) 04/05/18 13:24 Estimated GFR > 60.0 mL/min (>60) 04/05/18 13:24 BUN/Creatinine Ratio 26.7 (6-22) H 04/05/18 13:24 Glucose 92 mg/dL (80-110) 04/05/18 13:24 Calcium 9.4 mg/dL (8.4-10.2) 04/05/18 13:24 Total Bilirubin 1.1 mg/dL (0.2-1.3) 04/05/18 13:24 AST 35 IU/L (14-36) 04/05/18 13:24 ALT 21 IU/L (9-52) 04/05/18 13:24 Alkaline Phosphatase 96 U/L (38-126) 04/05/18 13:24 Total Protein 6.9 g/dL (6.3-8.2) 04/05/18 13:24 Albumin 4.4 g/dL (3.5-5.0) 04/05/18 13:24 Globulin 2.5 g/dL (1.7-4.1) 04/05/18 13:24 Albumin/Globulin Ratio 1.8 (1.0-2.8) 04/05/18 13:24 Assessment and Plan (1) Primary cancer of left breast with metastasis to other site Problem details: Presented with weight loss, abdominal pain, and diarrhea. CT ab/pelvis 01/25/2018: diffuse osseous metastasis. EGD/C-scope 01/25/2018: edematous mucosa in the cardia, gastric fundus and duodenm, congested mucosa in the entire examined colon; colon/gastric biopsies found metastatic carcinoma consistent with lobular carcinoma of breast. CT chest 01/27/2018 showed no pulmonary parenchymal nodules or adenopathy, but it showed diffuse osseous predominantly blastic metastasis. Infiltration of the proximal right humerus was noted. On January 27, 2018 patient underwent left breast ultrasound-guided core biopsies:invasive lobular carcinoma, intermediate grade, 4 of 9 cores involved, 6 mm in greatest length of carcinoma, without identifiable lymphovascular invasion, without ductal carcinoma in-situ present, ER positive (3+, 100% of cells), ND positive (1+, 30% of cells), Ki 67 intermediate (10% of cells), HER2 IHC equivocal for HER2 (overexpression 2+, 20% of cells), FISH negative by FISH. MRI of the brain on 02/11/2018. Brain MRI: diffuse thickening and enhancement throughout the dura including the falx, suspicious for diffuse meningeal metastasis. Assessment: Patient was started on endocrine therapy on 02/08/2018 with fulvestrant. On 02/19/2018 patient was started on palbociclib 125 mg once a day 3 weeks on and 1 week off. On 04/20/2018. she started Letrazole. Ibrance was prescribed at 100 mg 3 weeks on and 1 week off. Due to high co-pay, she has not called the pharmacy for delivery. She was wondering if there is any other medications that are less expensive. Clinically patient has some signs or symptoms suggestive of disease progression for example more gastrointestinal symptoms than before. Once again I talked with her that in my opinion fulvestrant works better than the letrozole. I would highly recommend that she consider using the fulvestrant especially she has a problem with gastrointestinal signs or symptoms that may hamper the absorption of the oral medications. However patient is adamant that she wanted to try the oral medications first. As far as the co-pay for palbociclib is concerned, I will have our social welfare research worker Mily to talk with the patient about co-pay assistance. As far as I understand, for commercial insurance, patient should have a zero copay. I also reviewed the bone scan results with the patient. There are no gross abnormal findings on the bone scan. I talked with the patient that it is reassuring that there is no clear evidence of bone metastasis. Plan: 1. On 06/04/[address] Aldrich at [facility] 2. Pre-auth: fulvestrant 500 mg im q28 days. 3. Continue Letrazole 2.5 mg daily for now until switching to fulvestrant 4. CT CAP w/contrast 5. EKG x 1 6. RTC in 1 months (2) Bone metastasis Assessment: CT chest 01/27/2018 showed no pulmonary parenchymal nodules or adenopathy, but it showed diffuse osseous predominantly blastic metastasis and infiltration of the proximal right humerus was noted. Previously, we have discussed with the patient about the use of Xgeva. However we have not received the clearance from her dentist yet. The bone scan showed no evidence of osseus metastasis. It is quite surprising. It may be because of the use of the endocrine therapy and Ibrance. I will temporarily hold the Xgeva. Plan: Temporarily hold Xgeva 120 mg subQ monthly (3) Cachexia Assessment and Plan: Patient is gaining weight suggestive of treatment effect. We will continue current treatment without any changes. (4) Anemia Laboratory tests from December 2017 clearly indicated that the patient has both folic acid deficiency as well as vitamin B12 deficiency. In addition the anemia also may be related to the underlying metastatic breast cancer itself. No iron deficiency. Plan: 1. Cont Vitamin B12 1000 mcg subQ monthly 2. Cont folic acid 2 mg daily (5) Diarrhea Diarrhea is related to metastatic involvement of the gastrointestinal system by her lobular breast cancer. 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 But LP cytology negative. I encourage her to follow up at [facility] (7) Pain Abdomen pain is related to metastatic involvement of the GI tract by her lobular breast cancer. Now improving. Plan: 1. Oxycodone 5 mg x 60#, 1# q4-6h prn 2. OTC stool softener as needed.
[2018-05-17 15:27] LABS: Hematocrit 31.3 % (36-46); Hemoglobin 10.5 g/dL (12.0-16.0); Mean Corpuscular HGB Conc 33.6 % (30-36); Mean Corpuscular Hemoglobin 37.6 PG (26-34); Mean Corpuscular Volume 111.9 fL (80-100); Platelet Count 78 X10^3/uL (150-400); Red Cell Distribution Width 15.5 % (11.6-14.8)
[2018-05-17 15:29] LABS: Add Manual Diff / Slide Review YES; White Blood Cell Count 1.4 X10^3/uL (4.5-11.0)
[2018-05-17 15:38] VITALS: BP 140/86; PULSE 69; RESP 20; TEMP 37.1; O2SAT 100
[2018-05-17 15:42] LABS: Alanine Aminotransferase 22 IU/L (9-52); Albumin 4.6 g/dL (3.5-5.0); Albumin Globulin Ratio 1.7 (1.0-2.8); Alkaline Phosphatase 89 U/L (38-126); Aspartate Aminotransferase 33 IU/L (14-36); Bilirubin Total 1.1 mg/dL (0.2-1.3); Blood Urea Nitrogen 15 mg/dL (7-17); Calcium 9.2 mg/dL (8.4-10.2); Carbon Dioxide 25 mmol/L (22-32); Chloride 100 mmol/L (98-107); Estimated Glomerular Filt Rate > 60.0 mL/min (>60); Globulin 2.7 g/dL (1.7-4.1); Glucose 107 mg/dL (80-110); HEMOLYSIS < 15 (0-50); Potassium 4.2 mmol/L (3.4-5.1); Sodium 135 mmol/L (137-145); Total Protein 7.3 g/dL (6.3-8.2)
[2018-05-17 16:17] LABS: Neutrophils Absolute Manual 546 /uL (3000-5900); RBC Morphology Normal Morphology; Total Cells Counted 100
--- NOTE | 2018-05-18 14:14 | ONC.SCHED ---
FULVESTRANT [id number] precertifiction is not required
[2018-06-14 13:52] VITALS: BP 139/79; PULSE 79; RESP 18; TEMP 36.6; O2SAT 100
--- NOTE | 2018-06-14 14:08 | P.PNONC_ITS ---
PN -Subjective Interval history: The patient was evaluated at [facility] by Dr. Aldrich in Radiation Oncology department on 06/04/2018. Dr. Aldrich reviewed the MRI images. Dr. 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 He also discussed this case with Dr. Viviana Self (Neurooncologist) who feels the same. Dr. Aldrich explained to the patient that the plan is to repeat MRI of the brain as well as MRI of the whole spine in 3-4 weeks and then follow-up with him. Whole brain radiotherapy will be held at this time. Dr. Sparks also discussed with me about possibly switching to abemaciclib since it is an agent that can better cross the blood brain barrier. Patient currently still taking letrozole 2.5 mg once daily and Ibrance daily 125 mg 3 weeks on and 1 week off. She is having balancing problems and in the clinic, she was holding onto her daughter when walking. She reported that her abdominal pain has improved. However she said she still having diarrhea which is about the same. Patient said that she is having lots of charley horses at slightest stimulation of her muscles. 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 On 02/08/2018, patient was started on fulvestrant. On 02/19/2018, she was started on Palbociclib 125 mg daily, 3 weeks on and 1 week off. Because of the meningeal metastasis concern, patient was referred to [facility] for second opinion and was evaluated by Dr. Sparks on 03/25/2018. Dr. Sparks agreed with the treatment plan. Patient underwent LP on 04/02/2018 at [facility] and the cytology was negative for malignancy. During her last visit on 04/05/2018, patient requested that the injection of fulvestrant be switched to oral medications. After discussion, patient agreed to try letrozole 2.5 mg once a day. However, for unknown reason, patient received letrozole on April 20, 2018 and she started since then. - Patient Self-Reported Symptoms SR Constitution: Night Sweats SR eye issues: Vision changes SR ears, nose, mouth, throat issues: Nose bleeds SR Cardiovascular issues: Dizzy/lightheaded SR Skin issues: Hair loss or scalp prob SR Gastrointestinal issues: Diarrhea SR Musculoskeletal issues: Muscle pain or cramps, Cold hands or feet SR Neuro issues: Headache, Lightheaded/dizzy SR Hematologic issues: Slow healing SR Endocrine issues: Hot flashes - Additional ROS All systems PM: reviewed and no additional remarkable complaints except as stated Home Medications and Allergies Home Medications Medication Instructions Recorded Confirmed Type lorazepam [Ativan] 0.5 mg SUBLINGUAL 4-6XD PRN #60 tab 02/04/18 06/14/18 Rx letrozole 2.5 mg PO DAILY #90 tab 05/17/18 06/14/18 Rx oxycodone 5 mg PO Q4-6H PRN #60 cap 05/17/18 06/14/18 Rx palbociclib [Ibrance] 100 mg PO DAILY #21 cap 05/17/18 06/14/18 Rx cyanocobalamin (vitamin B-12) 1,000 mcg PO DAILY 06/14/18 06/14/18 History [Vitamin B-12] folic acid 1 mg PO DAILY 06/14/18 06/14/18 History Allergies Allergy/AdvReac Type Severity Reaction Status Date / Time No Known Drug Allergies Allergy Verified 02/04/18 09:11 Exam Vital signs: Vital Signs Temp Pulse Resp BP Pulse Ox 06/14/18 13:52 97.9 F 79 18 139/79 100 Intake and Output 06/13/18 06/14/18 06/14/18 23:59 07:59 15:59 Other: Weight 42.6 kg Patient Weight 06/14/18 23:59 Weight 42.6 kg ECOG 1 Narrative: Constitutional: well developed, thin, well groomed, pleasant and cooperative, accompanied by her step daughter today. HEENT: NCAT, EOMI, PERRLA, anicteric sclera, mild hearing difficulty; Oral mucus membrane moist and without ulcers. Neck: Supple, symmetrical, and tracheal midline; No palpable thyromegaly and no palpable lymph nodes. Respiratory: No use of accessory muscles. Clear to auscultation, and no wheezes or rales or rubs. Cardiovascular: Regular rate and rhythm, S1 and S2 normal, no murmurs gallops or rubs. No JVD. Abdomen: Soft, nontender, non-distended, bowel sounds normal, no palpable organomegaly, no hernia, no palpable masses. Lower extremities: No pitting edema of lower extremities. Lymphatic: no palpable lymph nodes in the neck, axillae Skin: no rashes, no ulcers, no petechiae Neurological: Awake and alert and oriented x3. CN II-XII grossly intact. No focal motor or sensory deficit. Psychiatric: Good judgment, good insight, normal affect, normal thought process, cooperative, no depression, no anxiety. Results - Labs Laboratory Last Values WBC 1.4 X10^3/uL (4.5-11.0) L* 05/17/18 15:10 RBC 2.80 X10^6/uL (4.0-5.2) L 05/17/18 15:10 Hgb 10.5 g/dL (12.0-16.0) L 05/17/18 15:10 Hct 31.3 % (36-46) L 05/17/18 15:10 MCV 111.9 fL (80-100) H 05/17/18 15:10 MCH 37.6 PG (26-34) H 05/17/18 15:10 MCHC 33.6 % (30-36) 05/17/18 15:10 RDW 15.5 % (11.6-14.8) H 05/17/18 15:10 Plt Count 78 X10^3/uL (150-400) L 05/17/18 15:10 Neut % (Auto) Not Reportable 05/17/18 15:10 Lymph % (Auto) Not Reportable 05/17/18 15:10 Franklin % (Auto) Not Reportable 05/17/18 15:10 Eos % (Auto) Not Reportable 05/17/18 15:10 Baso % (Auto) Not Reportable 05/17/18 15:10 Neut # (Auto) 1400 /uL (8735-1615) L 04/05/18 13:24 Lymph # (Auto) Not Reportable 05/17/18 15:10 Franklin # (Auto) Not Reportable 05/17/18 15:10 Baso # (Auto) Not Reportable 05/17/18 15:10 Total Counted 100 05/17/18 15:10 Seg Neutrophils % 36.0 % (38-70) L 05/17/18 15:10 Band Neutrophils % 3.0 % (3-7) 05/17/18 15:10 Lymphocytes % (Manual) 51.0 % (25-45) H 05/17/18 15:10 Atypical Lymphs % 12.0 % (-0) H 03/12/18 09:26 Monocytes % (Manual) 7.0 % (2-11) 05/17/18 15:10 Eosinophils % (Manual) 2.0 % (2-4) 05/17/18 15:10 Basophils % (Manual) 1.0 % (0-1) 05/17/18 15:10 Neutrophils # (Manual) 546 /uL (8661-8291) L 05/17/18 15:10 RBC Morphology Normal morphology 05/17/18 15:10 Poikilocytosis 1+ H 03/12/18 09:26 Anisocytosis 1+ H 04/05/18 13:24 Macrocytosis 3+ H 04/05/18 13:24 Sodium 135 mmol/L (137-145) L 05/17/18 15:10 Potassium 4.2 mmol/L (3.4-5.1) 05/17/18 15:10 Chloride 100 mmol/L (98-107) 05/17/18 15:10 Carbon Dioxide 25 mmol/L (22-32) 05/17/18 15:10 BUN 15 mg/dL (7-17) 05/17/18 15:10 Creatinine 0.60 mg/dL (0.52-1.04) 05/17/18 15:10 Estimated GFR > 60.0 mL/min (>60) 05/17/18 15:10 BUN/Creatinine Ratio 25.0 (6-22) H 05/17/18 15:10 Glucose 107 mg/dL (80-110) 05/17/18 15:10 Calcium 9.2 mg/dL (8.4-10.2) 05/17/18 15:10 Total Bilirubin 1.1 mg/dL (0.2-1.3) 05/17/18 15:10 AST 33 IU/L (14-36) 05/17/18 15:10 ALT 22 IU/L (9-52) 05/17/18 15:10 Alkaline Phosphatase 89 U/L (38-126) 05/17/18 15:10 Total Protein 7.3 g/dL (6.3-8.2) 05/17/18 15:10 Albumin 4.6 g/dL (3.5-5.0) 05/17/18 15:10 Globulin 2.7 g/dL (1.7-4.1) 05/17/18 15:10 Albumin/Globulin Ratio 1.7 (1.0-2.8) 05/17/18 15:10 Assessment and Plan (1) Primary cancer of left breast with metastasis to other site Problem details: Presented with weight loss, abdominal pain, and diarrhea. CT ab/pelvis 01/25/2018: diffuse osseous metastasis. EGD/C-scope 01/25/2018: edematous mucosa in the cardia, gastric fundus and duodenm, congested mucosa in the entire examined colon; colon/gastric biopsies found metastatic carcinoma consistent with lobular carcinoma of breast. CT chest 01/27/2018 showed no pulmonary parenchymal nodules or adenopathy, but it showed diffuse osseous predominantly blastic metastasis. Infiltration of the proximal right humerus was noted. On January 27, 2018 patient underwent left breast ultrasound-guided core biopsies:invasive lobular carcinoma, intermediate grade, 4 of 9 cores involved, 6 mm in greatest length of carcinoma, without identifiable lymphovascular invasion, without ductal carcinoma in-situ present, ER positive (3+, 100% of cells), TX positive (1+, 30% of cells), Ki 67 intermediate (10% of cells), HER2 IHC equivocal for HER2 (overexpression 2+, 20% of cells), FISH negative by FISH. MRI of the brain on 02/11/2018. Brain MRI: diffuse thickening and enhancement throughout the dura including the falx, suspicious for diffuse meningeal metastasis. Assessment: Patient was started on endocrine therapy on 02/08/2018 with fulvestrant. On 02/19/2018 patient was started on palbociclib 125 mg once a day 3 weeks on and 1 week off. On 04/20/2018. she started Letrazole. Ibrance was prescribed at 100 mg 3 weeks on and 1 week off. Onida, first of all I talked with the patient about the opinion from Radiation Oncology and Neuro-Oncology at [facility]. I talked with the patient that it is important to follow up the recommendations. Patient is scheduled for MRI of the brain as well as the whole spine. However patient said that she is too busy and she probably will not do it. I talked with her it is in her best interest to follow-up on the recommendations since we are not sure about the leptomeningeal lesions. In addition patient is having neurological signs and symptoms especially balancing problems. Next I talked about the endocrine therapy. Patient would like to stick to letrozole for the time being until when she comes back in 3 weeks. I talked with her that I would prefer using fulvestrant rather than the letrozole. Patient said she will do it when she comes back. Then I talked about the use of abemaciclibe. I talked about the pros and counts compared to palbociclib. I also talked about the possible complications especially the diarrhea. Patient voiced understanding. I will put in the pre- authorization. Hopefully patient will receive the medications soon. Meanwhile patient should continue Ibrance until we switch. We will tentatively schedule the patient to come back in 3 weeks. Patient voiced understanding. Plan: 1. Continue Letrazole 2.5 mg daily for now until switching to fulvestrant 2. Continue Ibrance 100 mg 3 weeks on and 1 week off 3. Pre-auth: Abemaciclib 150 mg bid 4. RTC in 3 weeks. CBC, CMP. (2) Bone metastasis Assessment: CT chest 01/27/2018 showed no pulmonary parenchymal nodules or adenopathy, but it showed diffuse osseous predominantly blastic metastasis and infiltration of the proximal right humerus was noted. Previously, we have discussed with the patient about the use of Xgeva. However we have not received the clearance from her dentist yet. The bone scan showed no evidence of osseus metastasis. It is quite surprising. It may be because of the use of the endocrine therapy and Ibrance. I will temporarily hold the Xgeva. Plan: Temporarily hold Xgeva 120 mg subQ monthly (3) Cachexia Assessment and Plan: Patient is gaining weight suggestive of treatment effect. We will continue current treatment without any changes. (4) Anemia Assessment: Laboratory tests from December 2017 clearly indicated that the patient has both folic acid deficiency as well as vitamin B12 deficiency. In addition the anemia also may be related to the underlying metastatic breast cancer itself. No iron deficiency. Plan: 1. Cont Vitamin B12 1000 mcg subQ monthly 2. Cont folic acid 2 mg daily (5) Diarrhea Assessment: Diarrhea is related to metastatic involvement of the gastrointestinal system by her lobular breast cancer. 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 But LP cytology negative. I encourage her to get MRI study and follow up at [facility] (7) Pain Abdomen pain is related to metastatic involvement of the GI tract by her lobular breast cancer. Now improving. Plan: 1. Oxycodone 5 mg, 1# q4-6h prn 2. OTC stool softener as needed.
--- NOTE | 2018-06-14 15:00 | ONC.NAV ---
Description: Check-in Activity: Met with pt to check-in re: coping and support needs. Pt had indicated a (4) on her distress screening, however did not indicate any psychosocial reasons why. In meeting with her, pt states that she has been down to [place] twice now for scans [facility] ([facility]), and has told them just recently that she would like a break from going to down to [place] for a third one, as she says they keep telling me that the scans are inconclusive, and it's so difficult to go off [place] and stay in [place] for 2-days to do these. She does share that she has been gaining weight, that since she began using Ibrance, she is feeling hungrier. She feels that this is due to having less pain in her stomach and abdominal area. Otherwise, pt has no complaints or need for assistance at this time. Plan: Encouraged pt to call me should she be in need of any assistance/support in the future.
--- NOTE | 2018-06-17 16:06 | PC.NURSE ---
Spoke with Cullen, pts daughter regarding 06/[address] Park. She was wanting to know the name of the new medication that was prescribed for further research and insurance coverage. I told her that it was Abemaciclib and that we would also be looking into authorization. I explained that it might be prudent while researching that she look at the [employer] web site to see if they offer any copay support like she is receiving with her Ibrance. There was also a question regarding her faslodex and when that would be restarted, I explained that his notes mentioned she would restart at her next visit. Call ended
--- NOTE | 2018-06-18 11:59 | ONC.SCHED ---
abemaciclib-Faxed to [facility] pharmacy with the help of Babatunde
--- NOTE | 2018-06-22 14:53 | PC.NURSE ---
Received message from pt and pt's daughter inferring about medication Ibrance refill. Pt verbalized frustration regarding medication refill I haven't received my refill and I am supposed to start tomorrow. Dr. Park was suppose to order it a week ago. Contacted specialty pharmacy regarding medication, according to the pharmacy they had tried to contact pt 5 times, unsuccessfully. Pt's contact info verified with pharmacy by MARI Fine. Babatunde notified pt that pharmacy had attempted to contact pt several times. Babatunde also informed pt that original RX had 6 refills available. Pt verbalized understanding. Pharmacy will attempt to reach pt again, pt aware.
--- NOTE | 2018-06-23 11:44 | PC.NURSE ---
Pt called and left message again today reported she still has not been contacted from specialty pharmacy, [facility], and has not received her medication. This typewriter mechanic contacted [facility] and spoke with Kt Seymour, Pharmacist. According to Kt medication had been put on hold r/t inability to contact pt several times. Kt did put in order to restart medication while on the phone with this typewriter mechanic. Kt confirms medication is now ready to be scheduled. Pt's contact info reverified with [employer]. This typewriter mechanic contacted pt with update and also provided [employer]'s contact info to pt. Pt reports that her daughter was able to speak to [employer] this morning and was aware of hold of mediation r/t to inability to contact pt initially. Pt aware hold has been released and medication is available to be scheduled. Pt verifies [facility] phone number back to this typewriter mechanic. Pt reports daughter will schedule medication delivery.
--- NOTE | 2018-07-01 09:04 | ONC.NAV ---
Description: Insurance Appeal-[employer] Activity: DOOR TRIMMER completed the appeal for pt's [employer] approval. Faxed in to [facility]. Will plan to f/u with pt once a determination has been made.
--- NOTE | 2018-07-05 10:26 | ONC.SCHED ---
[employer]olanda-approved 06/17/18-07/04/21. Paperwork has been scanned in.
[2018-07-12 10:47] VITALS: BP 137/84; PULSE 74; RESP 18; TEMP 37.1; O2SAT 100
--- NOTE | 2018-07-12 10:54 | ONC.PN ---
PN -Subjective Interval history: The patient was evaluated at [facility] by Dr. Aldrich in Radiation Oncology department on 06/04/2018. Dr. Aldrich reviewed the MRI images. Dr. 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 He also discussed this case with Dr. Viviana Self (Neurooncologist) who feels the same. Dr. Aldrich explained to the patient that the plan is to repeat MRI of the brain as well as MRI of the whole spine in 3-4 weeks and then follow-up with him. Whole brain radiotherapy will be held at this time. Dr. Sparks also discussed with me about possibly switching to abemaciclib since it is an agent that can better cross the blood brain barrier. Patient currently still taking letrozole 2.5 mg once daily and Ibrance daily 125 mg 3 weeks on and 1 week off. She came here today accompanied by her daughter. Patient is currently in the third week of palbociclib. And is about to proceed into the 1 week break. Clinically patient said that she is still having persistent diarrhea with epigastric tenderness. She described it as belt surrounding the epigastric region. Patient denies any vomiting but does report mild nausea. Patient said that her weight has improved. Patient denies any headache. Patient continues to complain dizziness and spinning especially when changing positions. Patient said for the last 1 month, the dizziness and spinning seems to be more pronounced than before. Patient has already received the medication abemaciclib. She has not started yet. 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 On 02/08/2018, patient was started on fulvestrant. On 02/19/2018, she was started on Palbociclib 125 mg daily, 3 weeks on and 1 week off. Because of the meningeal metastasis concern, patient was referred to [facility] for second opinion and was evaluated by Dr. Sparks on 03/25/2018. Dr. Sparks agreed with the treatment plan. Patient underwent LP on 04/02/2018 at [facility] and the cytology was negative for malignancy. During her last visit on 04/05/2018, patient requested that the injection of fulvestrant be switched to oral medications. After discussion, patient agreed to try letrozole 2.5 mg once a day. However, for unknown reason, patient received letrozole on April 20, 2018 and she started since then. - Patient Self-Reported Symptoms SR Constitution: Night Sweats SR eye issues: Vision changes SR ears, nose, mouth, throat issues: Nose bleeds SR Cardiovascular issues: Dizzy/lightheaded SR Skin issues: Hair loss or scalp prob SR Gastrointestinal issues: Diarrhea SR Musculoskeletal issues: Joint pain or swelling, Cold hands or feet, Difficulty walking, Bone pain SR Neuro issues: Lightheaded/dizzy, Difficulty balancing SR Hematologic issues: Slow healing SR Endocrine issues: Hot flashes - Additional ROS All systems PM: reviewed and no additional remarkable complaints except as stated Home Medications and Allergies Home Medications Medication Instructions Recorded Confirmed Type lorazepam [Ativan] 0.5 mg SUBLINGUAL 4-6XD PRN #60 tab 02/04/18 07/12/18 Rx letrozole 2.5 mg PO DAILY #90 tab 05/17/18 07/12/18 Rx palbociclib [Ibrance] 100 mg PO DAILY #21 cap 05/17/18 07/12/18 Rx abemaciclib 150 mg PO BID #60 tab 06/14/18 07/12/18 Rx cyanocobalamin (vitamin B-12) 1,000 mcg PO DAILY 06/14/18 07/12/18 History [Vitamin B-12] folic acid 1 mg PO DAILY 06/14/18 07/12/18 History oxycodone 5 mg PO Q4-6H PRN #60 cap 07/12/18 Rx Allergies Allergy/AdvReac Type Severity Reaction Status Date / Time No Known Drug Allergies Allergy Verified 02/04/18 09:11 Exam Vital signs: Vital Signs Temp Pulse Resp BP Pulse Ox 07/12/18 10:47 98.8 F 74 18 137/84 100 Intake and Output 07/11/18 07/12/18 07/12/18 23:59 07:59 15:59 Other: Weight 43.6 kg Patient Weight 07/12/18 23:59 Weight 43.6 kg Narrative: Constitutional: well developed, thin, well groomed, pleasant and cooperative, accompanied by her step daughter today. HEENT: NCAT, EOMI, PERRLA, anicteric sclera, mild hearing difficulty; Oral mucus membrane moist and without ulcers. Neck: Supple, symmetrical, and tracheal midline; No palpable thyromegaly and no palpable lymph nodes. Respiratory: No use of accessory muscles. Clear to auscultation, and no wheezes Cardiovascular: Regular rate and rhythm, S1 and S2 normal, no murmurs gallops or rubs. No JVD. Abdomen: Soft, nontender, non-distended, bowel sounds normal, no palpable organomegaly, no hernia, no palpable masses. Lower extremities: No pitting edema of lower extremities. Lymphatic: no palpable lymph nodes in the neck, axillae Skin: no rashes, no ulcers, no petechiae Neurological: Awake and alert and oriented x3. CN II-XII grossly intact. No focal motor or sensory deficit. Psychiatric: Good judgment, good insight, normal affect, normal thought process, cooperative, no depression, no anxiety. Results - Labs Laboratory Last Values WBC 1.4 X10^3/uL (4.5-11.0) L* 05/17/18 15:10 RBC 2.80 X10^6/uL (4.0-5.2) L 05/17/18 15:10 Hgb 10.5 g/dL (12.0-16.0) L 05/17/18 15:10 Hct 31.3 % (36-46) L 05/17/18 15:10 MCV 111.9 fL (80-100) H 05/17/18 15:10 MCH 37.6 PG (26-34) H 05/17/18 15:10 MCHC 33.6 % (30-36) 05/17/18 15:10 RDW 15.5 % (11.6-14.8) H 05/17/18 15:10 Plt Count 78 X10^3/uL (150-400) L 05/17/18 15:10 Neut % (Auto) Not Reportable 05/17/18 15:10 Lymph % (Auto) Not Reportable 05/17/18 15:10 Hunt % (Auto) Not Reportable 05/17/18 15:10 Eos % (Auto) Not Reportable 05/17/18 15:10 Baso % (Auto) Not Reportable 05/17/18 15:10 Neut # (Auto) 1400 /uL (6210-7091) L 04/05/18 13:24 Lymph # (Auto) Not Reportable 05/17/18 15:10 Hunt # (Auto) Not Reportable 05/17/18 15:10 Baso # (Auto) Not Reportable 05/17/18 15:10 Total Counted 100 05/17/18 15:10 Seg Neutrophils % 36.0 % (38-70) L 05/17/18 15:10 Band Neutrophils % 3.0 % (3-7) 05/17/18 15:10 Lymphocytes % (Manual) 51.0 % (25-45) H 05/17/18 15:10 Atypical Lymphs % 12.0 % (-0) H 03/12/18 09:26 Monocytes % (Manual) 7.0 % (2-11) 05/17/18 15:10 Eosinophils % (Manual) 2.0 % (2-4) 05/17/18 15:10 Basophils % (Manual) 1.0 % (0-1) 05/17/18 15:10 Neutrophils # (Manual) 546 /uL (2021-9382) L 05/17/18 15:10 RBC Morphology Normal morphology 05/17/18 15:10 Poikilocytosis 1+ H 03/12/18 09:26 Anisocytosis 1+ H 04/05/18 13:24 Macrocytosis 3+ H 04/05/18 13:24 Sodium 135 mmol/L (137-145) L 05/17/18 15:10 Potassium 4.2 mmol/L (3.4-5.1) 05/17/18 15:10 Chloride 100 mmol/L (98-107) 05/17/18 15:10 Carbon Dioxide 25 mmol/L (22-32) 05/17/18 15:10 BUN 15 mg/dL (7-17) 05/17/18 15:10 Creatinine 0.60 mg/dL (0.52-1.04) 05/17/18 15:10 Estimated GFR > 60.0 mL/min (>60) 05/17/18 15:10 BUN/Creatinine Ratio 25.0 (6-22) H 05/17/18 15:10 Glucose 107 mg/dL (80-110) 05/17/18 15:10 Calcium 9.2 mg/dL (8.4-10.2) 05/17/18 15:10 Total Bilirubin 1.1 mg/dL (0.2-1.3) 05/17/18 15:10 AST 33 IU/L (14-36) 05/17/18 15:10 ALT 22 IU/L (9-52) 05/17/18 15:10 Alkaline Phosphatase 89 U/L (38-126) 05/17/18 15:10 Total Protein 7.3 g/dL (6.3-8.2) 05/17/18 15:10 Albumin 4.6 g/dL (3.5-5.0) 05/17/18 15:10 Globulin 2.7 g/dL (1.7-4.1) 05/17/18 15:10 Albumin/Globulin Ratio 1.7 (1.0-2.8) 05/17/18 15:10 Assessment and Plan (1) Primary cancer of left breast with metastasis to other site Problem details: Presented with weight loss, abdominal pain, and diarrhea. CT ab/pelvis 01/25/2018: diffuse osseous metastasis. EGD/C-scope 01/25/2018: edematous mucosa in the cardia, gastric fundus and duodenm, congested mucosa in the entire examined colon; colon/gastric biopsies found metastatic carcinoma consistent with lobular carcinoma of breast. CT chest 01/27/2018 showed no pulmonary parenchymal nodules or adenopathy, but it showed diffuse osseous predominantly blastic metastasis. Infiltration of the proximal right humerus was noted. On January 27, 2018 patient underwent left breast ultrasound-guided core biopsies:invasive lobular carcinoma, intermediate grade, 4 of 9 cores involved, 6 mm in greatest length of carcinoma, without identifiable lymphovascular invasion, without ductal carcinoma in-situ present, ER positive (3+, 100% of cells), IN positive (1+, 30% of cells), Ki 67 intermediate (10% of cells), HER2 IHC equivocal for HER2 (overexpression 2+, 20% of cells), FISH negative by FISH. MRI of the brain on 02/11/2018. Brain MRI: diffuse thickening and enhancement throughout the dura including the falx, suspicious for diffuse meningeal metastasis. Assessment: Patient was started on endocrine therapy on 02/08/2018 with fulvestrant which was switched to Letrazole on 04/20/2018 per patient request. She was started on palbociclib 3 weeks on and 1 week off on 02/19/2018. She presents here today for scheduled follow-up visit. Clinically I think she seems to be probably slightly progressing. Patient is complaining more pronounced dizzy and spinning of the head. In addition patient is complaining more epigastric tightness and tenderness. To further evaluate the efficacy of the treatment, I will proceed with CT scan of the chest abdomen and pelvis within the next 1-3 weeks. As far as the abemaciclib is concerned, I instructed the patient to complete the current palbociclib and take 1 week break. On the first day of next palbociclib, switch to abemaciblib 150 mg twice daily prepped together with antidiuretic medications loperamide that came in with the package. Today we also talked about the use of fulvestrant. Patient has gastrointestinal metastasis that can affect the absorption of the medications. Recently there is new studies that have shown combined estrogen receptor block age with letrozole and fulvestrant is better compared to letrozole and alone. I will try to restart the fulvestrant when she comes back. Plan: 1. Continue Letrazole 2.5 mg daily for now 2. Continue Ibrance 100 mg 3 weeks on and 1 week off until the current cycle is complete. 3. Abemacilib to be started 150 mg bid after the current cycle of Palbociclib is completed including the one-week break 4. CT CAP with contrast 5. RTC in 3 weeks. CBC, CMP, and to review CT results and to restart fulvestrant 500 mg im q28d (2) Bone metastasis Assessment: CT chest 01/27/2018 showed no pulmonary parenchymal nodules or adenopathy, but it showed diffuse osseous predominantly blastic metastasis and infiltration of the proximal right humerus was noted. Previously, we have discussed with the patient about the use of Xgeva. However we have not received the clearance from her dentist yet. The bone scan showed no evidence of osseus metastasis. It is quite surprising. It may be because of the use of the endocrine therapy and Ibrance. I will temporarily hold the Xgeva. Plan: Temporarily hold Xgeva 120 mg subQ monthly (3) Cachexia Assessment and Plan: Patient is gaining weight suggestive of treatment effect. We will continue current treatment without any changes. (4) Anemia Assessment: Laboratory tests from December 2017 clearly indicated that the patient has both folic acid deficiency as well as vitamin B12 deficiency. In addition the anemia also may be related to the underlying metastatic breast cancer itself. No iron deficiency. Plan: 1. Cont Vitamin B12 1000 mcg subQ monthly 2. Cont folic acid 2 mg daily (5) Diarrhea Assessment: Diarrhea is related to metastatic involvement of the gastrointestinal system by her lobular breast cancer. 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 But LP cytology negative. I encourage her to get MRI study and follow up at [facility] (7) Pain Abdomen pain is related to metastatic involvement of the GI tract by her lobular breast cancer. Now improving. Plan: 1. Oxycodone 5 mg, 1# q4-6h prn, refilled. 2. OTC stool softener as needed.
[2018-07-12 11:57] LABS: Hematocrit 33.3 % (36-46); Hemoglobin 11.3 g/dL (12.0-16.0); Mean Corpuscular Hemoglobin 38.1 PG (26-34); Mean Corpuscular Volume 111.9 fL (80-100); Platelet Count 104 X10^3/uL (150-400); Red Blood Cell Count 2.98 X10^6/uL (4.0-5.2); Red Cell Distribution Width 16.5 % (11.6-14.8)
[2018-07-12 12:00] LABS: Add Manual Diff / Slide Review YES; White Blood Cell Count 1.8 X10^3/uL (4.5-11.0)
[2018-07-12 12:06] LABS: Alanine Aminotransferase 21 IU/L (9-52); Albumin 4.4 g/dL (3.5-5.0); Albumin Globulin Ratio 1.8 (1.0-2.8); Alkaline Phosphatase 86 U/L (38-126); Aspartate Aminotransferase 34 IU/L (14-36); Bilirubin Total 1.9 mg/dL (0.2-1.3); Blood Urea Nitrogen 14 mg/dL (7-17); Calcium 9.4 mg/dL (8.4-10.2); Carbon Dioxide 26 mmol/L (22-32); Chloride 100 mmol/L (98-107); Estimated Glomerular Filt Rate > 60.0 mL/min (>60); Globulin 2.5 g/dL (1.7-4.1); Glucose 95 mg/dL (80-110); HEMOLYSIS < 15 (0-50); Potassium 4.3 mmol/L (3.4-5.1); Sodium 136 mmol/L (137-145); Total Protein 6.9 g/dL (6.3-8.2)
[2018-07-12 12:23] LABS: Neutrophils Absolute Manual 864 /uL (3000-5900); Total Cells Counted 50
[2018-07-12 12:24] LABS: RBC Morphology Normal Morphology
--- NOTE | 2018-07-12 12:44 | PC.NURSE ---
WBC 1.8, Dr. Park aware, no new orders received.
--- NOTE | 2018-07-14 10:46 | ONC.SCHED ---
ROGER NEEDS PRIO AUTH FOR CT SCANS. I HAD TO GO THROUGH [facility] @ [phone] FAX NUMBER INCLUDING CHART NOTES TO [phone]. I CALLED FIRST AND GOT THIS INFORMATION.
--- NOTE | 2018-07-19 11:24 | CM.SWNOTE ---
Description: T/C re: Lab Results Activity: Pt called and left a message requesting that her recent lab results be faxed to her. Completed this request.
--- NOTE | 2018-07-22 10:04 | ONC.NAV ---
Description: T/C re: records request Activity: Pt called to request a copy of her CT scan be faxed to her. Discussed this with triage, then faxed, per pt request.
--- NOTE | 2018-08-02 08:20 | ONC.PN ---
PN -Subjective Interval history: The patient was evaluated at [facility] by Dr. Aldrich in Radiation Oncology department on 06/04/2018. Dr. Aldrich reviewed the MRI images. Dr. 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 He also discussed this case with Dr. Viviana Self (Neurooncologist) who feels the same. Dr. Aldrich explained to the patient that the plan is to repeat MRI of the brain as well as MRI of the whole spine in 3-4 weeks and then follow-up with him. Whole brain radiotherapy will be held at this time. Dr. Sparks also discussed with me about possibly switching to abemaciclib since it is an agent that can better cross the blood brain barrier. Patient currently is taking letrozole 2.5 mg once daily and Ibrance daily 125 mg 3 weeks on and 1 week off. Patient came in here today accompanied by her son. Patient started taking abemaciclib 150 mg bid on 07/26/2018. Patient said that she has noticed significant fatigue. She takes naps twice a day. Her diarrhea has not gotten worse compared prior to the treatment. However she did not take the Lomotil for diarrhea control. Patient denies any fever or chills. Patient has very low appetite. She is trying to force herself to eat. Patient in addition is complaining persistent epigastric pain. Moderate in severity. Without associated nausea or vomiting. 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 On 02/08/2018, patient was started on fulvestrant. On 02/19/2018, she was started on Palbociclib 125 mg daily, 3 weeks on and 1 week off. Because of the meningeal metastasis concern, patient was referred to [facility] for second opinion and was evaluated by Dr. Sparks on 03/25/2018. Dr. Sparks agreed with the treatment plan. Patient underwent LP on 04/02/2018 at [facility] and the cytology was negative for malignancy. During her last visit on 04/05/2018, patient requested that the injection of fulvestrant be switched to oral medications. After discussion, patient agreed to try letrozole 2.5 mg once a day. However, for unknown reason, patient received letrozole on April 20, 2018 and she started since then. - Patient Self-Reported Symptoms SR Cardiovascular issues: Dizzy/lightheaded SR Gastrointestinal issues: Diarrhea SR Musculoskeletal issues: Joint pain or swelling, Cold hands or feet, Difficulty walking, Bone pain SR Neuro issues: Lightheaded/dizzy, Difficulty balancing SR Hematologic issues: Slow healing SR Endocrine issues: Hot flashes - Additional ROS All systems PM: reviewed and no additional remarkable complaints except as stated Home Medications and Allergies Home Medications Medication Instructions Recorded Confirmed Type lorazepam [Ativan] 0.5 mg SUBLINGUAL 4-6XD PRN #60 tab 02/04/18 08/02/18 Rx letrozole 2.5 mg PO DAILY #90 tab 05/17/18 08/02/18 Rx palbociclib [Ibrance] 100 mg PO DAILY #21 cap 05/17/18 08/02/18 Rx abemaciclib 150 mg PO BID #60 tab 06/14/18 08/02/18 Rx cyanocobalamin (vitamin B-12) 1,000 mcg PO DAILY 06/14/18 08/02/18 History [Vitamin B-12] folic acid 1 mg PO DAILY 06/14/18 08/02/18 History oxycodone 5 mg PO Q4-6H PRN #60 cap 07/12/18 08/02/18 Rx Allergies Allergy/AdvReac Type Severity Reaction Status Date / Time No Known Drug Allergies Allergy Verified 02/04/18 09:11 Exam Vital signs: Last Vital Signs Temp 98.7 F 08/02/18 12:26 Pulse 106 H 08/02/18 12:26 Resp 16 08/02/18 12:26 BP 137/81 08/02/18 12:26 Pulse Ox 100 08/02/18 12:26 ECOG 1 Narrative: Constitutional: well developed, thin, well groomed, pleasant and cooperative, accompanied by her son. HEENT: NCAT, EOMI, PERRLA, anicteric sclera, mild hearing difficulty; Oral mucus membrane moist and without ulcers. Neck: Supple, symmetrical, and tracheal midline; No palpable thyromegaly and no palpable lymph nodes. Respiratory: No use of accessory muscles. Clear to auscultation, and no wheezes Cardiovascular: Regular rate and rhythm, S1 and S2 normal, no murmurs gallops or rubs. No JVD. Abdomen: Soft, nontender, non-distended, bowel sounds normal, no palpable organomegaly, no hernia, no palpable masses. Lower extremities: No pitting edema of lower extremities. Lymphatic: no palpable lymph nodes in the neck, axillae Skin: no rashes, no ulcers, no petechiae Neurological: Awake and alert and oriented x3. CN II-XII grossly intact. No focal motor or sensory deficit. Psychiatric: Good judgment, good insight, normal affect, normal thought process, cooperative, no depression, no anxiety. Results - Labs Laboratory Last Values WBC 2.9 X10^3/uL (4.5-11.0) L 08/02/18 10:57 RBC 3.18 X10^6/uL (4.0-5.2) L 08/02/18 10:57 Hgb 12.3 g/dL (12.0-16.0) 08/02/18 10:57 Hct 36.5 % (36-46) 08/02/18 10:57 MCV 114.5 fL (80-100) H 08/02/18 10:57 MCH 38.7 PG (26-34) H 08/02/18 10:57 MCHC 33.8 % (30-36) 08/02/18 10:57 RDW 16.0 % (11.6-14.8) H 08/02/18 10:57 Plt Count 161 X10^3/uL (150-400) 08/02/18 10:57 Neut % (Auto) 68.4 % (50-75) 08/02/18 10:57 Lymph % (Auto) 22.3 % (25-40) L 08/02/18 10:57 [place] % (Auto) 6.2 % (3-14) 08/02/18 10:57 Eos % (Auto) 1.1 % (2-4) L 08/02/18 10:57 Baso % (Auto) 2.0 % (0-2) 08/02/18 10:57 Neut # (Auto) 2000 /uL (3857-3010) 08/02/18 10:57 Lymph # (Auto) 700 /uL (6063-8663) L 08/02/18 10:57 [place] # (Auto) 200 /uL (0-900) 08/02/18 10:57 Eos # (Auto) 0 /uL (0-450) 08/02/18 10:57 Baso # (Auto) 100 /uL (0-100) 08/02/18 10:57 Total Counted 50 07/12/18 11:41 Seg Neutrophils % 44.0 % (38-70) 07/12/18 11:41 Band Neutrophils % 4.0 % (3-7) 07/12/18 11:41 Lymphocytes % (Manual) 36.0 % (25-45) 07/12/18 11:41 Atypical Lymphs % 12.0 % (-0) H 07/12/18 11:41 Monocytes % (Manual) 4.0 % (2-11) 07/12/18 11:41 Eosinophils % (Manual) 2.0 % (2-4) 05/17/18 15:10 Basophils % (Manual) 1.0 % (0-1) 05/17/18 15:10 Neutrophils # (Manual) 864 /uL (1919-5079) L 07/12/18 11:41 RBC Morphology See below 08/02/18 10:57 Poikilocytosis 1+ H 03/12/18 09:26 Anisocytosis 1+ H 04/05/18 13:24 Macrocytosis 2+ H 08/02/18 10:57 Sodium 135 mmol/L (137-145) L 08/02/18 10:57 Potassium 4.8 mmol/L (3.4-5.1) 08/02/18 10:57 Chloride 99 mmol/L (98-107) 08/02/18 10:57 Carbon Dioxide 24 mmol/L (22-32) 08/02/18 10:57 BUN 16 mg/dL (7-17) 08/02/18 10:57 Creatinine 0.90 mg/dL (0.52-1.04) 08/02/18 10:57 Estimated GFR > 60.0 mL/min (>60) 08/02/18 10:57 BUN/Creatinine Ratio 17.8 (6-22) 08/02/18 10:57 Glucose 87 mg/dL (80-110) 08/02/18 10:57 Calcium 9.8 mg/dL (8.4-10.2) 08/02/18 10:57 Total Bilirubin 2.5 mg/dL (0.2-1.3) H 08/02/18 10:57 AST 33 IU/L (14-36) 08/02/18 10:57 ALT 17 IU/L (9-52) 08/02/18 10:57 Alkaline Phosphatase 103 U/L (38-126) 08/02/18 10:57 Total Protein 7.3 g/dL (6.3-8.2) 08/02/18 10:57 Albumin 4.7 g/dL (3.5-5.0) 08/02/18 10:57 Globulin 2.6 g/dL (1.7-4.1) 08/02/18 10:57 Albumin/Globulin Ratio 1.8 (1.0-2.8) 08/02/18 10:57 Assessment and Plan (1) Primary cancer of left breast with metastasis to other site Overview: 62 year old female presented with weight loss, abdominal pain, and diarrhea. CT abd/pelvis 01/25/2018: diffuse osseous metastasis. EGD/C-scope 01/25/2018: edematous mucosa in the cardia, gastric fundus and duodenm, congested mucosa in the entire examined colon; colon/gastric biopsies found metastatic carcinoma consistent with lobular carcinoma of breast. CT chest 01/27/2018 showed no pulmonary parenchymal nodules or adenopathy, but it showed diffuse osseous predominantly blastic metastasis. Infiltration of the proximal right humerus was noted. On January 27, 2018 patient underwent left breast ultrasound-guided core biopsies:invasive lobular carcinoma, intermediate grade, 4 of 9 cores involved, 6 mm in greatest length of carcinoma, without identifiable lymphovascular invasion, without ductal carcinoma in-situ present, ER positive (3+, 100% of cells), WA positive (1+, 30% of cells), Ki 67 intermediate (10% of cells), HER2 IHC equivocal for HER2 (overexpression 2+, 20% of cells), FISH negative by FISH. MRI of the brain on 02/11/2018. Brain MRI: diffuse thickening and enhancement throughout the dura including the falx, suspicious for diffuse meningeal metastasis. She was started on endocrine therapy on 02/08/2018 with fulvestrant which was switched to Letrazole on 04/20/2018 per patient request. She was started on palbociclib 3 weeks on and 1 week off on 02/19/2018. Assessment : On 07/26/2018, palbociclib was switched to abemaciblib 150 mg twice daily. Patient is complaining significant fatigue. But no fever and no chills. Her diarrhea remains the same. I talked with her that I will restart Fulvestrant. Plan: 1. Continue Letrazole 2.5 mg daily for now 2. Continue Abemacilib 150 mg bid 3. Instructed her to start Lomotil as instructed in package insert of Abemacilib. 4. Ok to proceed to Fulvestrant 500 mg x1 day 5. CBC, CMP weekly at local hospital, fax results to me 6. RTC in 4 weeks. CBC, CMP, and fulvestrant 500 mg im q28d. (2) Bone metastasis Assessment: CT chest 01/27/2018 showed no pulmonary parenchymal nodules or adenopathy, but it showed diffuse osseous predominantly blastic metastasis and infiltration of the proximal right humerus was noted. Previously, we have discussed with the patient about the use of Xgeva. However we have not received the clearance from her dentist yet. The bone scan showed no evidence of osseus metastasis. It is quite surprising. It may be because of the use of the endocrine therapy and Ibrance. I will temporarily hold the Xgeva. Plan: Temporarily hold Xgeva 120 mg subQ monthly (3) Cachexia Assessment and Plan: Patient is gaining weight suggestive of treatment effect. We will continue current treatment without any changes. (4) Anemia Assessment: Laboratory tests from December 2017 clearly indicated that the patient has both folic acid deficiency as well as vitamin B12 deficiency. In addition the anemia also may be related to the underlying metastatic breast cancer itself. No iron deficiency. Plan: 1. Cont Vitamin B12 1000 mcg subQ monthly 2. Cont folic acid 2 mg daily (5) Diarrhea Assessment and Plan: Diarrhea is related to metastatic involvement of the gastrointestinal system by her lobular breast cancer as well as use of Abemaciclib, I instructed him to start the Lomotil that comes with the abemaciclib pills. (6) Dizziness Likely related to the possible meningeal metastasis. But LP cytology negative. I encourage her to get MRI study and follow up at [facility] (7) Pain Abdomen pain is related to metastatic involvement of the GI tract by her lobular breast cancer. Now improving. Plan: 1. Oxycodone 5 mg, 1# q4-6h prn 2. OTC stool softener as needed. (8) Hyperbilirubinemia Assessment and Plan: Likely related to the use of Abemaciclib. Liver metastasis is unlikely given the recent CT scan on 07/20/2018. I will monitor the level weekly for now. (9) Leukopenia due to antineoplastic chemotherapy Assessment and Plan: mild leukopenia. related to Abemaciclib. monitor weekly.
--- NOTE | 2018-08-02 08:25 | P.PNONC_ITS ---
PN -Subjective Interval history: The patient was evaluated at [facility] by Dr. Aldrich in Radiation Oncology department on 06/04/2018. Dr. Aldrich reviewed the MRI images. Dr. 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 He also discussed this case with Dr. Viviana Self (Neurooncologist) who feels the same. Dr. Aldrich explained to the patient that the plan is to repeat MRI of the brain as well as MRI of the whole spine in 3-4 weeks and then follow-up with him. Whole brain radiotherapy will be held at this time. Dr. Sparks also discussed with me about possibly switching to abemaciclib since it is an agent that can better cross the blood brain barrier. Patient currently is taking letrozole 2.5 mg once daily and Ibrance daily 125 mg 3 weeks on and 1 week off. Patient came in here today accompanied by her son. Patient started taking abemaciclib 150 mg bid on 07/26/2018. Patient said that she has noticed significant fatigue. She takes naps twice a day. Her diarrhea has not gotten worse compared prior to the treatment. However she did not take the Lomotil for diarrhea control. Patient denies any fever or chills. Patient has very low appetite. She is trying to force herself to eat. Patient in addition is complaining persistent epigastric pain. Moderate in severity. Without associated nausea or vomiting. 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 On 02/08/2018, patient was started on fulvestrant. On 02/19/2018, she was started on Palbociclib 125 mg daily, 3 weeks on and 1 week off. Because of the meningeal metastasis concern, patient was referred to [facility] for second opinion and was evaluated by Dr. Sparks on 03/25/2018. Dr. Sparks agreed with the treatment plan. Patient underwent LP on 04/02/2018 at [facility] and the cytology was negative for malignancy. During her last visit on 04/05/2018, patient requested that the injection of fulvestrant be switched to oral medications. After discussion, patient agreed to try letrozole 2.5 mg once a day. However, for unknown reason, patient received letrozole on April 20, 2018 and she started since then. - Patient Self-Reported Symptoms SR Cardiovascular issues: Dizzy/lightheaded SR Gastrointestinal issues: Diarrhea SR Musculoskeletal issues: Joint pain or swelling, Cold hands or feet, Difficulty walking, Bone pain SR Neuro issues: Lightheaded/dizzy, Difficulty balancing SR Hematologic issues: Slow healing SR Endocrine issues: Hot flashes - Additional ROS All systems PM: reviewed and no additional remarkable complaints except as stated Home Medications and Allergies Home Medications Medication Instructions Recorded Confirmed Type lorazepam [Ativan] 0.5 mg SUBLINGUAL 4-6XD PRN #60 tab 02/04/18 08/02/18 Rx letrozole 2.5 mg PO DAILY #90 tab 05/17/18 08/02/18 Rx palbociclib [Ibrance] 100 mg PO DAILY #21 cap 05/17/18 08/02/18 Rx abemaciclib 150 mg PO BID #60 tab 06/14/18 08/02/18 Rx cyanocobalamin (vitamin B-12) 1,000 mcg PO DAILY 06/14/18 08/02/18 History [Vitamin B-12] folic acid 1 mg PO DAILY 06/14/18 08/02/18 History oxycodone 5 mg PO Q4-6H PRN #60 cap 07/12/18 08/02/18 Rx Allergies Allergy/AdvReac Type Severity Reaction Status Date / Time No Known Drug Allergies Allergy Verified 02/04/18 09:11 Exam Vital signs: Last Vital Signs Temp 98.7 F 08/02/18 12:26 Pulse 106 H 08/02/18 12:26 Resp 16 08/02/18 12:26 BP 137/81 08/02/18 12:26 Pulse Ox 100 08/02/18 12:26 ECOG 1 Narrative: Constitutional: well developed, thin, well groomed, pleasant and cooperative, accompanied by her son. HEENT: NCAT, EOMI, PERRLA, anicteric sclera, mild hearing difficulty; Oral mucus membrane moist and without ulcers. Neck: Supple, symmetrical, and tracheal midline; No palpable thyromegaly and no palpable lymph nodes. Respiratory: No use of accessory muscles. Clear to auscultation, and no wheezes Cardiovascular: Regular rate and rhythm, S1 and S2 normal, no murmurs gallops or rubs. No JVD. Abdomen: Soft, nontender, non-distended, bowel sounds normal, no palpable organomegaly, no hernia, no palpable masses. Lower extremities: No pitting edema of lower extremities. Lymphatic: no palpable lymph nodes in the neck, axillae Skin: no rashes, no ulcers, no petechiae Neurological: Awake and alert and oriented x3. CN II-XII grossly intact. No focal motor or sensory deficit. Psychiatric: Good judgment, good insight, normal affect, normal thought process, cooperative, no depression, no anxiety. Results - Labs Laboratory Last Values WBC 2.9 X10^3/uL (4.5-11.0) L 08/02/18 10:57 RBC 3.18 X10^6/uL (4.0-5.2) L 08/02/18 10:57 Hgb 12.3 g/dL (12.0-16.0) 08/02/18 10:57 Hct 36.5 % (36-46) 08/02/18 10:57 MCV 114.5 fL (80-100) H 08/02/18 10:57 MCH 38.7 PG (26-34) H 08/02/18 10:57 MCHC 33.8 % (30-36) 08/02/18 10:57 RDW 16.0 % (11.6-14.8) H 08/02/18 10:57 Plt Count 161 X10^3/uL (150-400) 08/02/18 10:57 Neut % (Auto) 68.4 % (50-75) 08/02/18 10:57 Lymph % (Auto) 22.3 % (25-40) L 08/02/18 10:57 [place] % (Auto) 6.2 % (3-14) 08/02/18 10:57 Eos % (Auto) 1.1 % (2-4) L 08/02/18 10:57 Baso % (Auto) 2.0 % (0-2) 08/02/18 10:57 Neut # (Auto) 2000 /uL (2614-8213) 08/02/18 10:57 Lymph # (Auto) 700 /uL (6141-3761) L 08/02/18 10:57 [place] # (Auto) 200 /uL (0-900) 08/02/18 10:57 Eos # (Auto) 0 /uL (0-450) 08/02/18 10:57 Baso # (Auto) 100 /uL (0-100) 08/02/18 10:57 Total Counted 50 07/12/18 11:41 Seg Neutrophils % 44.0 % (38-70) 07/12/18 11:41 Band Neutrophils % 4.0 % (3-7) 07/12/18 11:41 Lymphocytes % (Manual) 36.0 % (25-45) 07/12/18 11:41 Atypical Lymphs % 12.0 % (-0) H 07/12/18 11:41 Monocytes % (Manual) 4.0 % (2-11) 07/12/18 11:41 Eosinophils % (Manual) 2.0 % (2-4) 05/17/18 15:10 Basophils % (Manual) 1.0 % (0-1) 05/17/18 15:10 Neutrophils # (Manual) 864 /uL (4948-8574) L 07/12/18 11:41 RBC Morphology See below 08/02/18 10:57 Poikilocytosis 1+ H 03/12/18 09:26 Anisocytosis 1+ H 04/05/18 13:24 Macrocytosis 2+ H 08/02/18 10:57 Sodium 135 mmol/L (137-145) L 08/02/18 10:57 Potassium 4.8 mmol/L (3.4-5.1) 08/02/18 10:57 Chloride 99 mmol/L (98-107) 08/02/18 10:57 Carbon Dioxide 24 mmol/L (22-32) 08/02/18 10:57 BUN 16 mg/dL (7-17) 08/02/18 10:57 Creatinine 0.90 mg/dL (0.52-1.04) 08/02/18 10:57 Estimated GFR > 60.0 mL/min (>60) 08/02/18 10:57 BUN/Creatinine Ratio 17.8 (6-22) 08/02/18 10:57 Glucose 87 mg/dL (80-110) 08/02/18 10:57 Calcium 9.8 mg/dL (8.4-10.2) 08/02/18 10:57 Total Bilirubin 2.5 mg/dL (0.2-1.3) H 08/02/18 10:57 AST 33 IU/L (14-36) 08/02/18 10:57 ALT 17 IU/L (9-52) 08/02/18 10:57 Alkaline Phosphatase 103 U/L (38-126) 08/02/18 10:57 Total Protein 7.3 g/dL (6.3-8.2) 08/02/18 10:57 Albumin 4.7 g/dL (3.5-5.0) 08/02/18 10:57 Globulin 2.6 g/dL (1.7-4.1) 08/02/18 10:57 Albumin/Globulin Ratio 1.8 (1.0-2.8) 08/02/18 10:57 Assessment and Plan (1) Primary cancer of left breast with metastasis to other site Overview: 62 year old female presented with weight loss, abdominal pain, and diarrhea. CT abd/pelvis 01/25/2018: diffuse osseous metastasis. EGD/C-scope 01/25/2018: edematous mucosa in the cardia, gastric fundus and duodenm, congested mucosa in the entire examined colon; colon/gastric biopsies found metastatic carcinoma consistent with lobular carcinoma of breast. CT chest 01/27/2018 showed no pulmonary parenchymal nodules or adenopathy, but it showed diffuse osseous predominantly blastic metastasis. Infiltration of the proximal right humerus was noted. On January 27, 2018 patient underwent left breast ultrasound-guided core biopsies:invasive lobular carcinoma, intermediate grade, 4 of 9 cores involved, 6 mm in greatest length of carcinoma, without identifiab le lymphovascular invasion, without ductal carcinoma in-situ present, ER positive (3+, 100% of cells), MS positive (1+, 30% of cells), Ki 67 intermediate (10% of cells), HER2 IHC equivocal for HER2 (overexpression 2+, 20% of cells), FISH negative by FISH. MRI of the brain on 02/11/2018. Brain MRI: diffuse thickening and enhancement throughout the dura including the falx, suspicious for diffuse meningeal metastasis. She was started on endocrine therapy on 02/08/2018 with fulvestrant which was switched to Letrazole on 04/20/2018 per patient request. She was started on palbociclib 3 weeks on and 1 week off on 02/19/2018. Assessment : On 07/26/2018, palbociclib was switched to abemaciblib 150 mg twice daily. Patient is complaining significant fatigue. But no fever and no chills. Her d iarrhea remains the same. I talked with her that I will restart Fulvestrant. Plan: 1. Continue Letrazole 2.5 mg daily for now 2. Continue Abemacilib 150 mg bid 3. Instructed her to start Lomotil as instructed in package insert of Abemacilib. 4. Ok to proceed to Fulvestrant 500 mg x1 day 5. CBC, CMP weekly at local hospital, fax results to me 6. RTC in 4 weeks. CBC, CMP, and fulvestrant 500 mg im q28d. (2) Bone metastasis Assessment: CT chest 01/27/2018 showed no pulmonary parenchymal nodules or adenopathy, but it showed diffuse osseous predominantly blastic metastasis and infiltration of the proximal right humerus was noted. Previously, we have discussed with the patient about the use of Xgeva. However we have not received the clearance from her dentist yet. The bone scan showed no evidence of osseus metastasis. It is quite surprising. It may be because of the use of the endocrine therapy and Ibrance. I will temporarily hold the Xgeva. Plan: Temporarily hold Xgeva 120 mg subQ monthly (3) Cachexia Assessment and Plan: Patient is gaining weight suggestive of treatment effect. We will continue current treatment without any changes. (4) Anemia Assessment: Laboratory tests from December 2017 clearly indicated that the patient has both folic acid deficiency as well as vitamin B12 deficiency. In addition the anemia also may be related to the underlying metastatic breast cancer itself. No iron deficiency. Plan: 1. Cont Vitamin B12 1000 mcg subQ monthly 2. Cont folic acid 2 mg daily (5) Diarrhea Assessment and Plan: Diarrhea is related to metastatic involvement of the gastrointestinal system by her lobular breast cancer as well as use of Abemaciclib, I instructed him to start the Lomotil that comes with the abemaciclib pills. (6) Dizziness Likely related to the possible meningeal metastasis. But LP cytology negative. I encourage her to get MRI study and follow up at [facility] (7) Pain Abdomen pain is related to metastatic involvement of the GI tract by her lobular breast cancer. Now improving. Plan: 1. Oxycodone 5 mg, 1# q4-6h prn 2. OTC stool softener as needed. (8) Hyperbilirubinemia Assessment and Plan: Likely related to the use of Abemaciclib. Liver metastasis is unlikely given the recent CT scan on 07/20/2018. I will monitor the level w eekly for now. (9) Leukopenia due to antineoplastic chemotherapy Assessment and Plan: mild leukopenia. related to Abemaciclib. monitor weekly.
[2018-08-02 11:51] LABS: Add Manual Diff / Slide Review NO; Basophils Absolute Auto 100 /uL (0-100); Eosinophils Absolute Auto 0 /uL (0-450); Eosinophils Percent Auto 1.1 % (2-4); Hematocrit 36.5 % (36-46); Hemoglobin 12.3 g/dL (12.0-16.0); Lymphocytes Absolute Auto 700 /uL (1100-4500); Lymphocytes Percent Auto 22.3 % (25-40); Mean Corpuscular HGB Conc 33.8 % (30-36); Mean Corpuscular Hemoglobin 38.7 PG (26-34); Mean Corpuscular Volume 114.5 fL (80-100); Monocytes Absolute Auto 200 /uL (0-900); Monocytes Percent Auto 6.2 % (3-14); Neutrophils Absolute Auto 2000 /uL (1500-7000); Neutrophils Percent Auto 68.4 % (50-75); Platelet Count 161 X10^3/uL (150-400); Red Blood Cell Count 3.18 X10^6/uL (4.0-5.2); White Blood Cell Count 2.9 X10^3/uL (4.5-11.0)
[2018-08-02 11:57] LABS: Alanine Aminotransferase 17 IU/L (9-52); Albumin 4.7 g/dL (3.5-5.0); Albumin Globulin Ratio 1.8 (1.0-2.8); Alkaline Phosphatase 103 U/L (38-126); Aspartate Aminotransferase 33 IU/L (14-36); BUN Creatinine Ratio 17.8 (6-22); Bilirubin Total 2.5 mg/dL (0.2-1.3); Blood Urea Nitrogen 16 mg/dL (7-17); Calcium 9.8 mg/dL (8.4-10.2); Carbon Dioxide 24 mmol/L (22-32); Chloride 99 mmol/L (98-107); Estimated Glomerular Filt Rate > 60.0 mL/min (>60); Globulin 2.6 g/dL (1.7-4.1); Glucose 87 mg/dL (80-110); HEMOLYSIS < 15 (0-50); Potassium 4.8 mmol/L (3.4-5.1); Sodium 135 mmol/L (137-145); Total Protein 7.3 g/dL (6.3-8.2)
[2018-08-02 12:12] LABS: Macrocytosis 2+
[2018-08-02 12:26] VITALS: BP 137/81; PULSE 106; RESP 16; TEMP 37.1; O2SAT 100
[2018-08-02] MEDS: FULVESTRANT 250 MG/5 ML SYR 500 MG IM (14:00)
--- NOTE | 2018-08-09 14:50 | ONC.SCHED ---
Tried calling patient to get her scheduled per Hermelinda but no answer.
--- NOTE | 2018-08-12 10:45 | ONC.PN ---
PN -Subjective Interval history: Patient currently is taking letrozole 2.5 mg once daily. Patient started taking abemaciclib 150 mg bid on 07/26/2018. On July the 09/16/2018, patient also received fulvestrant 500 mg injection. Since then patient said that she been extremely sick with nausea vomiting and terrible abdominal pain and exhausted. Therefore on 08/05/2018 patient stopped taking abemaciclib. A couple of days later, patient said that she felt a lot better. She denies any fever or chills. Patient came in here today for discussion of resuming treatment with palbociclib. She is accompanied by her daughter to the clinic. 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 On 02/08/2018, patient was started on fulvestrant. On 02/19/2018, she was started on Palbociclib 125 mg daily, 3 weeks on and 1 week off. Because of the meningeal metastasis concern, patient was referred to [facility] for second opinion and was evaluated by Dr. Sparks on 03/25/2018. Dr. Sparks agreed with the treatment plan. Patient underwent LP on 04/02/2018 at [facility] and the cytology was negative for malignancy. During her last visit on 04/05/2018, patient requested that the injection of fulvestrant be switched to oral medications. After discussion, patient agreed to try letrozole 2.5 mg once a day. However, for unknown reason, patient received letrozole on April 20, 2018 and she started since then. The patient was evaluated at [facility] by Dr. Aldrich in Radiation Oncology department on 06/04/2018. Dr. Aldrich reviewed the MRI images. Dr. 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 He also discussed this case with Dr. Viviana Self (Neurooncologist) who feels the same. Dr. Aldrich explained to the patient that the plan is to repeat MRI of the brain as well as MRI of the whole spine in 3-4 weeks and then follow-up with him. Whole brain radiotherapy will be held at this time. Dr. Sparks also discussed with me about possibly switching to abemaciclib since it is an agent that can better cross the blood brain barrier. - Patient Self-Reported Symptoms SR Constitution: Night Sweats SR eye issues: Vision changes SR ears, nose, mouth, throat issues: Nose bleeds SR Cardiovascular issues: Dizzy/lightheaded SR Skin issues: Hair loss or scalp prob SR Gastrointestinal issues: Diarrhea SR Musculoskeletal issues: Joint pain or swelling, Cold hands or feet, Difficulty walking, Bone pain SR Neuro issues: Lightheaded/dizzy, Difficulty balancing SR Hematologic issues: Slow healing SR Endocrine issues: Hot flashes - Additional ROS All systems PM: reviewed and no additional remarkable complaints except as stated Home Medications and Allergies Home Medications Medication Instructions Recorded Confirmed Type lorazepam [Ativan] 0.5 mg SUBLINGUAL 4-6XD PRN #60 tab 02/04/18 08/02/18 Rx cyanocobalamin (vitamin B-12) 1,000 mcg PO DAILY 06/14/18 08/02/18 History [Vitamin B-12] folic acid 1 mg PO DAILY 06/14/18 08/02/18 History letrozole 2.5 mg PO DAILY #90 tab 08/12/18 Rx oxycodone 5 mg PO Q4-6H PRN #60 cap 08/12/18 Rx palbociclib [Ibrance] 100 mg PO DAILY #21 cap 08/12/18 Rx Allergies Allergy/AdvReac Type Severity Reaction Status Date / Time No Known Drug Allergies Allergy Verified 02/04/18 09:11 Exam Vital signs: Last Vital Signs Temp 98.2 F 08/12/18 12:06 Pulse 87 08/12/18 12:06 Resp 18 08/12/18 12:06 BP 124/73 08/12/18 12:06 Pulse Ox 100 08/12/18 12:06 ECOG 1 Narrative: Constitutional: well developed, thin, well groomed, pleasant and cooperative, accompanied by daughter. HEENT: NCAT, EOMI, PERRLA, anicteric sclera, mild hearing difficulty; Oral mucus membrane moist and without ulcers. Neck: Supple, symmetrical, and tracheal midline; No palpable thyromegaly and no palpable lymph nodes. Respiratory: No use of accessory muscles. Clear to auscultation, and no wheezes Cardiovascular: Regular rate and rhythm, S1 and S2 normal, no murmurs gallops or rubs. No JVD. Abdomen: Soft, mild epigastric tenderness, no palpable organomegaly, no hernia, no palpable masses. Lower extremities: No pitting edema of lower extremities. Lymphatic: no palpable lymph nodes in the neck, axillae Skin: no rashes, no ulcers, no petechiae Neurological: Awake and alert and oriented x3. CN II-XII grossly intact. No focal motor or sensory deficit. Psychiatric: Good judgment, good insight, normal affect, normal thought process, cooperative, no depression, no anxiety. Results - Labs Laboratory Last Values WBC 2.9 X10^3/uL (4.5-11.0) L 08/02/18 10:57 RBC 3.18 X10^6/uL (4.0-5.2) L 08/02/18 10:57 Hgb 12.3 g/dL (12.0-16.0) 08/02/18 10:57 Hct 36.5 % (36-46) 08/02/18 10:57 MCV 114.5 fL (80-100) H 08/02/18 10:57 MCH 38.7 PG (26-34) H 08/02/18 10:57 MCHC 33.8 % (30-36) 08/02/18 10:57 RDW 16.0 % (11.6-14.8) H 08/02/18 10:57 Plt Count 161 X10^3/uL (150-400) 08/02/18 10:57 Neut % (Auto) 68.4 % (50-75) 08/02/18 10:57 Lymph % (Auto) 22.3 % (25-40) L 08/02/18 10:57 Hawkins % (Auto) 6.2 % (3-14) 08/02/18 10:57 Eos % (Auto) 1.1 % (2-4) L 08/02/18 10:57 Baso % (Auto) 2.0 % (0-2) 08/02/18 10:57 Neut # (Auto) 2000 /uL (2454-9644) 08/02/18 10:57 Lymph # (Auto) 700 /uL (3366-0340) L 08/02/18 10:57 Hawkins # (Auto) 200 /uL (0-900) 08/02/18 10:57 Eos # (Auto) 0 /uL (0-450) 08/02/18 10:57 Baso # (Auto) 100 /uL (0-100) 08/02/18 10:57 Total Counted 50 07/12/18 11:41 Seg Neutrophils % 44.0 % (38-70) 07/12/18 11:41 Band Neutrophils % 4.0 % (3-7) 07/12/18 11:41 Lymphocytes % (Manual) 36.0 % (25-45) 07/12/18 11:41 Atypical Lymphs % 12.0 % (-0) H 07/12/18 11:41 Monocytes % (Manual) 4.0 % (2-11) 07/12/18 11:41 Eosinophils % (Manual) 2.0 % (2-4) 05/17/18 15:10 Basophils % (Manual) 1.0 % (0-1) 05/17/18 15:10 Neutrophils # (Manual) 864 /uL (6776-6616) L 07/12/18 11:41 RBC Morphology See below 08/02/18 10:57 Poikilocytosis 1+ H 03/12/18 09:26 Anisocytosis 1+ H 04/05/18 13:24 Macrocytosis 2+ H 08/02/18 10:57 Sodium 135 mmol/L (137-145) L 08/02/18 10:57 Potassium 4.8 mmol/L (3.4-5.1) 08/02/18 10:57 Chloride 99 mmol/L (98-107) 08/02/18 10:57 Carbon Dioxide 24 mmol/L (22-32) 08/02/18 10:57 BUN 16 mg/dL (7-17) 08/02/18 10:57 Creatinine 0.90 mg/dL (0.52-1.04) 08/02/18 10:57 Estimated GFR > 60.0 mL/min (>60) 08/02/18 10:57 BUN/Creatinine Ratio 17.8 (6-22) 08/02/18 10:57 Glucose 87 mg/dL (80-110) 08/02/18 10:57 Calcium 9.8 mg/dL (8.4-10.2) 08/02/18 10:57 Total Bilirubin 2.5 mg/dL (0.2-1.3) H 08/02/18 10:57 AST 33 IU/L (14-36) 08/02/18 10:57 ALT 17 IU/L (9-52) 08/02/18 10:57 Alkaline Phosphatase 103 U/L (38-126) 08/02/18 10:57 Total Protein 7.3 g/dL (6.3-8.2) 08/02/18 10:57 Albumin 4.7 g/dL (3.5-5.0) 08/02/18 10:57 Globulin 2.6 g/dL (1.7-4.1) 08/02/18 10:57 Albumin/Globulin Ratio 1.8 (1.0-2.8) 08/02/18 10:57 Assessment and Plan (1) Primary cancer of left breast with metastasis to other site Overview: 62 year old female presented with weight loss, abdominal pain, and diarrhea. CT abd/pelvis 01/25/2018: diffuse osseous metastasis. EGD/C-scope 01/25/2018: edematous mucosa in the cardia, gastric fundus and duodenm, congested mucosa in the entire examined colon; colon/gastric biopsies found metastatic carcinoma consistent with lobular carcinoma of breast. CT chest 01/27/2018 showed no pulmonary parenchymal nodules or adenopathy, but it showed diffuse osseous predominantly blastic metastasis. Infiltration of the proximal right humerus was noted. On January 27, 2018 patient underwent left breast ultrasound-guided core biopsies:invasive lobular carcinoma, intermediate grade, 4 of 9 cores involved, 6 mm in greatest length of carcinoma, without identifiable lymphovascular invasion, without ductal carcinoma in-situ present, ER positive (3+, 100% of cells), VT positive (1+, 30% of cells), Ki 67 intermediate (10% of cells), HER2 IHC equivocal for HER2 (overexpression 2+, 20% of cells), FISH negative by FISH. MRI of the brain on 02/11/2018. Brain MRI: diffuse thickening and enhancement throughout the dura including the falx, suspicious for diffuse meningeal metastasis. She was started on endocrine therapy on 02/08/2018 with fulvestrant which was switched to Letrazole on 04/20/2018 per patient request. She was started on palbociclib 3 weeks on and 1 week off on 02/19/2018. Assessment : On 07/26/2018, palbociclib was switched to abemaciblib 150 mg twice daily. On 08/05/2018, she had to stop abemaciclib because of severe fatigue, diarrhea, nausea, and vomiting. She presents here today for discussion of resuming treatment with palbociclib. I talked with the patient that I completely agree that we should stop a beam aside clip because of the toxicity. We will resume the treatment just as before. Plan: 1. Continue Letrazole 2.5 mg daily for now 2. Stop Abemacilib 150 mg bid 3. Resume Palbociclib 100 mg on day 1-21, every 28 days 4. Temoporarily hold Fulvestrant 500 mg x1 for now, may consider restart in the near future. 5. CBC, CMP weekly at local hospital, fax results to me 6. RTC in 08/30/2018. CBC, CMP, and ?fulvestrant 500 mg im q28d. (2) Bone metastasis Assessment: CT chest 01/27/2018 showed no pulmonary parenchymal nodules or adenopathy, but it showed diffuse osseous predominantly blastic metastasis and infiltration of the proximal right humerus was noted. Previously, we have discussed with the patient about the use of Xgeva. However we have not received the clearance from her dentist yet. The bone scan showed no evidence of osseus metastasis. It is quite surprising. It may be because of the use of the endocrine therapy and Ibrance. I will temporarily hold the Xgeva. Plan: Temporarily hold Xgeva 120 mg subQ monthly (3) Cachexia Assessment and Plan: Patient is gaining weight suggestive of treatment effect. We will continue current treatment without any changes. (4) Anemia Assessment: Laboratory tests from December 2017 clearly indicated that the patient has both folic acid deficiency as well as vitamin B12 deficiency. In addition the anemia also may be related to the underlying metastatic breast cancer itself. No iron deficiency. Plan: 1. Cont Vitamin B12 1000 mcg subQ monthly 2. Cont folic acid 2 mg daily (5) Diarrhea Assessment and Plan: Diarrhea is related to metastatic involvement of the gastrointestinal system by her lobular breast cancer as well as use of Abemaciclib, I instructed him to start the Lomotil that comes with the abemaciclib pills. (6) Dizziness Likely related to the possible meningeal metastasis. But LP cytology negative. I encourage her to get MRI study and follow up at [facility] (7) Pain Abdomen pain is related to metastatic involvement of the GI tract by her lobular breast cancer. Now improving. Plan: 1. Oxycodone 5 mg, 1# q4-6h prn 2. OTC stool softener as needed. (8) Hyperbilirubinemia Assessment and Plan: Likely related to the use of Abemaciclib. Liver metastasis is unlikely given the recent CT scan on 07/20/2018. I will monitor the level weekly for now. (9) Leukopenia due to antineoplastic chemotherapy Assessment and Plan: mild leukopenia. related to Abemaciclib. monitor weekly.
[2018-08-12 12:06] VITALS: BP 124/73; PULSE 87; RESP 18; TEMP 36.8; O2SAT 100
--- NOTE | 2018-08-12 14:22 | ONC.MSW ---
Description: [place] Activity: Completed a new [employer] [place] for pt to begin on 08/15/18 for another 90-days.
[2018-09-02 11:41] LABS: Hematocrit 31.3 % (36-46); Hemoglobin 10.8 g/dL (12.0-16.0); Mean Corpuscular HGB Conc 34.5 % (30-36); Mean Corpuscular Hemoglobin 39.2 PG (26-34); Mean Corpuscular Volume 113.7 fL (80-100); Platelet Count 101 X10^3/uL (150-400); Red Blood Cell Count 2.76 X10^6/uL (4.0-5.2); Red Cell Distribution Width 14.2 % (11.6-14.8)
[2018-09-02 11:43] LABS: White Blood Cell Count 1.6 X10^3/uL (4.5-11.0)
[2018-09-02 11:44] LABS: Add Manual Diff / Slide Review YES
[2018-09-02 11:54] VITALS: BP 128/79; PULSE 86; RESP 16; TEMP 37.3; O2SAT 100
[2018-09-02 12:02] LABS: Alanine Aminotransferase 31 IU/L (9-52); Albumin 4.2 g/dL (3.5-5.0); Albumin Globulin Ratio 1.8 (1.0-2.8); Alkaline Phosphatase 88 U/L (38-126); Aspartate Aminotransferase 50 IU/L (14-36); BUN Creatinine Ratio 18.6 (6-22); Bilirubin Total 1.9 mg/dL (0.2-1.3); Blood Urea Nitrogen 13 mg/dL (7-17); Calcium 9.4 mg/dL (8.4-10.2); Carbon Dioxide 30 mmol/L (22-32); Chloride 100 mmol/L (98-107); Estimated Glomerular Filt Rate > 60.0 mL/min (>60); Globulin 2.4 g/dL (1.7-4.1); Glucose 104 mg/dL (80-110); HEMOLYSIS < 15 (0-50); Potassium 4.6 mmol/L (3.4-5.1); Sodium 137 mmol/L (137-145); Total Protein 6.6 g/dL (6.3-8.2)
--- NOTE | 2018-09-02 12:04 | ONC.PN ---
PN -Subjective Interval history: Patient currently is taking letrozole 2.5 mg once daily and palbociclib 100 mg/d 21/ days. We stopped the beam a sickly up due to significant nausea, vomiting, terrible abdominal pain and exhaustion. Patient is accompanied by her daughter to the clinic. She is now complaining what she called carpal tunnel type of finger pain. She is also having tingling of the toes. She has history of neuropathy. No fever and no chills. Patient does some problems with mild nausea. Her dizziness persists it is and has not improved yet. Patient is still having some mild diarrhea. The abdomen feels uncomfortable. 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 On 02/08/2018, patient was started on fulvestrant. On 02/19/2018, she was started on Palbociclib 125 mg daily, 3 weeks on and 1 week off. Because of the meningeal metastasis concern, patient was referred to [facility] for second opinion and was evaluated by Dr. Sparks on 03/25/2018. Dr. Sparks agreed with the treatment plan. Patient underwent LP on 04/02/2018 at [facility] and the cytology was negative for malignancy. During her last visit on 04/05/2018, patient requested that the injection of fulvestrant be switched to oral medications. After discussion, patient agreed to try letrozole 2.5 mg once a day. However, for unknown reason, patient received letrozole on April 20, 2018 and she started since then. The patient was evaluated at [facility] by Dr. Aldrich in Radiation Oncology department on 06/04/2018. Dr. Aldrich reviewed the MRI images. Dr. 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 He also discussed this case with Dr. Viviana Self (Neurooncologist) who feels the same. Dr. Aldrich explained to the patient that the plan is to repeat MRI of the brain as well as MRI of the whole spine in 3-4 weeks and then follow-up with him. Whole brain radiotherapy will be held at this time. Dr. Sparks also discussed with me about possibly switching to abemaciclib since it is an agent that can better cross the blood brain barrier. - Patient Self-Reported Symptoms SR Constitution: Fatigue/Malaise, Night Sweats SR eye issues: Vision changes SR ears, nose, mouth, throat issues: Nose bleeds SR Cardiovascular issues: Dizzy/lightheaded SR Skin issues: Dry skin, Skin rash or itching, Hair loss or scalp prob SR Gastrointestinal issues: Diarrhea SR Musculoskeletal issues: Joint pain or swelling, Muscle weakness, Cold hands or feet, Difficulty walking, Bone pain SR Neuro issues: Lightheaded/dizzy, Difficulty balancing SR Hematologic issues: Slow healing SR Endocrine issues: Hot flashes - Additional ROS All systems PM: reviewed and no additional remarkable complaints except as stated Home Medications and Allergies Home Medications Medication Instructions Recorded Confirmed Type lorazepam [Ativan] 0.5 mg SUBLINGUAL 4-6XD PRN #60 tab 02/04/18 08/02/18 Rx cyanocobalamin (vitamin B-12) 1,000 mcg PO DAILY 06/14/18 08/02/18 History [Vitamin B-12] folic acid 1 mg PO DAILY 06/14/18 08/02/18 History oxycodone 5 mg PO Q4-6H PRN #60 cap 08/12/18 Rx palbociclib [Ibrance] 100 mg PO DAILY #21 cap 08/12/18 Rx letrozole [Femara] 2.5 mg PO DAILY #90 tab 09/02/18 Rx Allergies Allergy/AdvReac Type Severity Reaction Status Date / Time No Known Drug Allergies Allergy Verified 02/04/18 09:11 Exam Vital signs: Vital Signs Temp Pulse Resp BP Pulse Ox 09/02/18 11:54 99.1 F 86 16 128/79 100 Intake and Output 09/01/18 09/02/18 09/02/18 23:59 07:59 15:59 Other: Weight 43.4 kg Patient Weight 09/02/18 23:59 Weight 43.4 kg Narrative: Constitutional: well developed, thin, well groomed, pleasant and cooperative, accompanied by daughter. HEENT: NCAT, EOMI, PERRLA, anicteric sclera, mild hearing difficulty; Oral mucus membrane moist and without ulcers. Neck: Supple, symmetrical, and tracheal midline; No palpable thyromegaly and no palpable lymph nodes. Respiratory: No use of accessory muscles. Clear to auscultation, and no wheezes Cardiovascular: Regular rate and rhythm, S1 and S2 normal, no murmurs gallops or rubs. No JVD. Abdomen: Soft, mild epigastric tenderness, no palpable organomegaly, no hernia, no palpable masses. Lower extremities: No pitting edema of lower extremities. Lymphatic: no palpable lymph nodes in the neck, axillae Skin: no rashes, no ulcers, no petechiae Neurological: Awake and alert and oriented x3. CN II-XII grossly intact. No focal motor or sensory deficit. Psychiatric: Good judgment, good insight, normal affect, normal thought process, cooperative, no depression, no anxiety. Results - Labs Laboratory Last Values WBC 1.6 X10^3/uL (4.5-11.0) L* 09/02/18 11:23 RBC 2.76 X10^6/uL (4.0-5.2) L 09/02/18 11:23 Hgb 10.8 g/dL (12.0-16.0) L 09/02/18 11:23 Hct 31.3 % (36-46) L 09/02/18 11:23 MCV 113.7 fL (80-100) H 09/02/18 11:23 MCH 39.2 PG (26-34) H 09/02/18 11:23 MCHC 34.5 % (30-36) 09/02/18 11:23 RDW 14.2 % (11.6-14.8) 09/02/18 11:23 Plt Count 101 X10^3/uL (150-400) L 09/02/18 11:23 Neut % (Auto) Not Reportable 09/02/18 11:23 Lymph % (Auto) Not Reportable 09/02/18 11:23 Hooker % (Auto) Not Reportable 09/02/18 11:23 Eos % (Auto) Not Reportable 09/02/18 11:23 Baso % (Auto) Not Reportable 09/02/18 11:23 Neut # (Auto) 2000 /uL (5213-8613) 08/02/18 10:57 Lymph # (Auto) Not Reportable 09/02/18 11:23 Hooker # (Auto) Not Reportable 09/02/18 11:23 Eos # (Auto) 0 /uL (0-450) 08/02/18 10:57 Baso # (Auto) Not Reportable 09/02/18 11:23 Total Counted 50 07/12/18 11:41 Seg Neutrophils % 44.0 % (38-70) 07/12/18 11:41 Band Neutrophils % 4.0 % (3-7) 07/12/18 11:41 Lymphocytes % (Manual) 36.0 % (25-45) 07/12/18 11:41 Atypical Lymphs % 12.0 % (-0) H 07/12/18 11:41 Monocytes % (Manual) 4.0 % (2-11) 07/12/18 11:41 Eosinophils % (Manual) 2.0 % (2-4) 05/17/18 15:10 Basophils % (Manual) 1.0 % (0-1) 05/17/18 15:10 Neutrophils # (Manual) 864 /uL (7459-9170) L 07/12/18 11:41 RBC Morphology See below 08/02/18 10:57 Poikilocytosis 1+ H 03/12/18 09:26 Anisocytosis 1+ H 04/05/18 13:24 Macrocytosis 2+ H 08/02/18 10:57 Sodium 135 mmol/L (137-145) L 08/02/18 10:57 Potassium 4.8 mmol/L (3.4-5.1) 08/02/18 10:57 Chloride 99 mmol/L (98-107) 08/02/18 10:57 Carbon Dioxide 24 mmol/L (22-32) 08/02/18 10:57 BUN 16 mg/dL (7-17) 08/02/18 10:57 Creatinine 0.90 mg/dL (0.52-1.04) 08/02/18 10:57 Estimated GFR > 60.0 mL/min (>60) 08/02/18 10:57 BUN/Creatinine Ratio 17.8 (6-22) 08/02/18 10:57 Glucose 87 mg/dL (80-110) 08/02/18 10:57 Calcium 9.8 mg/dL (8.4-10.2) 08/02/18 10:57 Total Bilirubin 2.5 mg/dL (0.2-1.3) H 08/02/18 10:57 AST 33 IU/L (14-36) 08/02/18 10:57 ALT 17 IU/L (9-52) 08/02/18 10:57 Alkaline Phosphatase 103 U/L (38-126) 08/02/18 10:57 Total Protein 7.3 g/dL (6.3-8.2) 08/02/18 10:57 Albumin 4.7 g/dL (3.5-5.0) 08/02/18 10:57 Globulin 2.6 g/dL (1.7-4.1) 08/02/18 10:57 Albumin/Globulin Ratio 1.8 (1.0-2.8) 08/02/18 10:57 Assessment and Plan (1) Primary cancer of left breast with metastasis to other site Overview: 62 year old female presented with weight loss, abdominal pain, and diarrhea. CT abd/pelvis 01/25/2018: diffuse osseous metastasis. EGD/C-scope 01/25/2018: edematous mucosa in the cardia, gastric fundus and duodenm, congested mucosa in the entire examined colon; colon/gastric biopsies found metastatic carcinoma consistent with lobular carcinoma of breast. CT chest 01/27/2018 showed no pulmonary parenchymal nodules or adenopathy, but it showed diffuse osseous predominantly blastic metastasis. Infiltration of the proximal right humerus was noted. On January 27, 2018 patient underwent left breast ultrasound-guided core biopsies:invasive lobular carcinoma, intermediate grade, 4 of 9 cores involved, 6 mm in greatest length of carcinoma, without identifiable lymphovascular invasion, without ductal carcinoma in-situ present, ER positive (3+, 100% of cells), VA positive (1+, 30% of cells), Ki 67 intermediate (10% of cells), HER2 IHC equivocal for HER2 (overexpression 2+, 20% of cells), FISH negative by FISH. MRI of the brain on 02/11/2018. Brain MRI: diffuse thickening and enhancement throughout the dura including the falx, suspicious for diffuse meningeal metastasis. She was started on endocrine therapy on 02/08/2018 with fulvestrant which was switched to Letrazole on 04/20/2018 per patient request. She was started on palbociclib 3 weeks on and 1 week off on 02/19/2018. On 07/26/2018, palbociclib was switched to abemaciclib 150 mg twice daily. On 08/05/2018, she had to stop abemaciclib because of severe fatigue, diarrhea, nausea, and vomiting. Thereafter, we stopped abemaciclib permanently, and restart the palbociclib. Assessment Patient tolerated letrozole and palbociclib relatively well. She does report some joint pain. Her clinical symptoms have remained stable for example mild nausea, mild abdominal discomfort and mild diarrhea. Patient's white cell count today is 1.6. Clinically no fever and no chills. I discussed with her that this is an expected finding when patient is using palbociclib. I talked with her if there is no fever I will continue monitoring. If she develops fever she needs to call us or go to the emergency room. Patient and patient's daughter both voiced understanding. And I talked about the use of fulvestrant, patient said that she would not like to start the cause this medication makes her feel sick. Plan: 1. Continue Letrazole 2.5 mg daily for now 2. Continue Palbociclib 100 mg on day 1-21, every 28 days 3. RTC in 10/18/2018. CBC, CMP (2) Bone metastasis Assessment: CT chest 01/27/2018 showed no pulmonary parenchymal nodules or adenopathy, but it showed diffuse osseous predominantly blastic metastasis and infiltration of the proximal right humerus was noted. Previously, we have discussed with the patient about the use of Xgeva. However we have not received the clearance from her dentist yet. The bone scan showed no evidence of osseus metastasis. It is quite surprising. It may be because of the use of the endocrine therapy and Ibrance. I will temporarily hold the Xgeva. Plan: Temporarily hold Xgeva 120 mg subQ monthly (3) Cachexia Assessment and Plan: Patient is gaining weight suggestive of treatment effect. We will continue current treatment without any changes. (4) Anemia Assessment: Laboratory tests from December 2017 clearly indicated that the patient has both folic acid deficiency as well as vitamin B12 deficiency. In addition the anemia also may be related to the underlying metastatic breast cancer itself. No iron deficiency. Plan: 1. Cont Vitamin B12 1000 mcg subQ monthly 2. Cont folic acid 2 mg daily (5) Diarrhea Assessment and Plan: Diarrhea has improved after we stopped Abemaciclib. Immodium or Lomotil prn. (6) Dizziness Likely related to the possible meningeal metastasis. But LP cytology negative. I encourage her to get MRI study and follow up at [facility] (7) Pain Abdomen pain is related to metastatic involvement of the GI tract by her lobular breast cancer. Now improving. Plan: 1. Oxycodone 5 mg, 1# q4-6h prn 2. OTC stool softener as needed. (8) Hyperbilirubinemia Assessment and Plan: stable. cont monitoring. (9) Leukopenia due to antineoplastic chemotherapy Assessment and Plan: mild leukopenia. related to Abemaciclib. monitor.
--- NOTE | 2018-09-02 12:10 | P.PNONC_ITS ---
PN -Subjective Interval history: Patient currently is taking letrozole 2.5 mg once daily and palbociclib 100 mg/d 21/ days. We stopped the beam a sickly up due to significant nausea, vomiting, terrible abdominal pain and exhaustion. Patient is accompanied by her daughter to the clinic. She is now complaining what she called carpal tunnel t ype of finger pain. She is also having tingling of the toes. She has history of neuropathy. No fever and no chills. Patient does some problems with mild nausea. Her dizziness persists it is and has not improved yet. Patient is still having some mild diarrhea. The abdomen feels uncomfortable. 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 On 02/08/2018, patient was started on fulvestrant. On 02/19/2018, she was started on Palbociclib 125 mg daily, 3 weeks on and 1 week off. Because of the meningeal metastasis concern, patient was referred to [facility] for second opinion and was evaluated by Dr. Sparks on 03/25/2018. Dr. Sparks agreed with the treatment plan. Patient underwent LP on 04/02/2018 at [facility] and the cytology was negative for malignancy. During her last visit on 04/05/2018, patient requested that the injection of fulvestrant be switched to oral medications. After discussion, patient agreed to try letrozole 2.5 mg once a day. However, for unknown reason, patient received letrozole on April 20, 2018 and she started since then. The patient was evaluated at [facility] by Dr. Aldrich in Radiation Oncology department on 06/04/2018. Dr. Aldrich reviewed the MRI images. Dr. 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 He also discussed this case with Dr. Viviana Self (Neurooncologist) who feels the same. Dr. Aldrich explained to the patient that the plan is to repeat MRI of the brain as well as MRI of the whole spine in 3-4 weeks and then follow-up with him. Whole brain radiotherapy will be held at this time. Dr. Sparks also discussed with me about possibly switching to abemaciclib since it is an agent that can better cross the blood brain barrier. - Patient Self-Reported Symptoms SR Constitution: Fatigue/Malaise, Night Sweats SR eye issues: Vision changes SR ears, nose, mouth, throat issues: Nose bleeds SR Cardiovascular issues: Dizzy/lightheaded SR Skin issues: Dry skin, Skin rash or itching, Hair loss or scalp prob SR Gastrointestinal issues: Diarrhea SR Musculoskeletal issues: Joint pain or swelling, Muscle weakness, Cold hands or feet, Difficulty walking, Bone pain SR Neuro issues: Lightheaded/dizzy, Difficulty balancing SR Hematologic issues: Slow healing SR Endocrine issues: Hot flashes - Additional ROS All systems PM: reviewed and no additional remarkable complaints except as stated Home Medications and Allergies Home Medications Medication Instructions Recorded Confirmed Type lorazepam [Ativan] 0.5 mg SUBLINGUAL 4-6XD PRN #60 tab 02/04/18 08/02/18 Rx cyanocobalamin (vitamin B-12) 1,000 mcg PO DAILY 06/14/18 08/02/18 History [Vitamin B-12] folic acid 1 mg PO DAILY 06/14/18 08/02/18 History oxycodone 5 mg PO Q4-6H PRN #60 cap 08/12/18 Rx palbociclib [Ibrance] 100 mg PO DAILY #21 cap 08/12/18 Rx letrozole [Femara] 2.5 mg PO DAILY #90 tab 09/02/18 Rx Allergies Allergy/AdvReac Type Severity Reaction Status Date / Time No Known Drug Allergies Allergy Verified 02/04/18 09:11 Exam Vital signs: Vital Signs Temp Pulse Resp BP Pulse Ox 09/02/18 11:54 99.1 F 86 16 128/79 100 Intake and Output 09/01/18 09/02/18 09/02/18 23:59 07:59 15:59 Other: Weight 43.4 kg Patient Weight 09/02/18 23:59 Weight 43.4 kg Narrative: Constitutional: well developed, thin, well groomed, pleasant and cooperative, accompanied by daughter. HEENT: NCAT, EOMI, PERRLA, anicteric sclera, mild hearing difficulty; Oral mucus membrane moist and without ulcers. Neck: Supple, symmetrical, and tracheal midline; No palpable thyromegaly and no palpable lymph nodes. Respiratory: No use of accessory muscles. Clear to auscultation, and no wheezes Cardiovascular: Regular rate and rhythm, S1 and S2 normal, no murmurs gallops or rubs. No JVD. Abdomen: Soft, mild epigastric tenderness, no palpable organomegaly, no hernia, no palpable masses. Lower extremities: No pitting edema of lower extremities. Lymphatic: no palpable lymph nodes in the neck, axillae Skin: no rashes, no ulcers, no petechiae Neurological: Awake and alert and oriented x3. CN II-XII grossly intact. No focal motor or sensory deficit. Psychiatric: Good judgment, good insight, normal affect, normal thought process, cooperative, no depression, no anxiety. Results - Labs Laboratory Last Values WBC 1.6 X10^3/uL (4.5-11.0) L* 09/02/18 11:23 RBC 2.76 X10^6/uL (4.0-5.2) L 09/02/18 11:23 Hgb 10.8 g/dL (12.0-16.0) L 09/02/18 11:23 Hct 31.3 % (36-46) L 09/02/18 11:23 MCV 113.7 fL (80-100) H 09/02/18 11:23 MCH 39.2 PG (26-34) H 09/02/18 11:23 MCHC 34.5 % (30-36) 09/02/18 11:23 RDW 14.2 % (11.6-14.8) 09/02/18 11:23 Plt Count 101 X10^3/uL (150-400) L 09/02/18 11:23 Neut % (Auto) Not Reportable 09/02/18 11:23 Lymph % (Auto) Not Reportable 09/02/18 11:23 [place] % (Auto) Not Reportable 09/02/18 11:23 Eos % (Auto) Not Reportable 09/02/18 11:23 Baso % (Auto) Not Reportable 09/02/18 11:23 Neut # (Auto) 2000 /uL ([id number]) 08/02/18 10:57 Lymph # (Auto) Not Reportable 09/02/18 11:23 [place] # (Auto) Not Reportable 09/02/18 11:23 Eos # (Auto) 0 /uL (0-450) 08/02/18 10:57 Baso # (Auto) Not Reportable 09/02/18 11:23 Total Counted 50 07/12/18 11:41 Seg Neutrophils % 44.0 % (38-70) 07/12/18 11:41 Band Neutrophils % 4.0 % (3-7) 07/12/18 11:41 Lymphocytes % (Manual) 36.0 % (25-45) 07/12/18 11:41 Atypical Lymphs % 12.0 % (-0) H 07/12/18 11:41 Monocytes % (Manual) 4.0 % (2-11) 07/12/18 11:41 Eosinophils % (Manual) 2.0 % (2-4) 05/17/18 15:10 Basophils % (Manual) 1.0 % (0-1) 05/17/18 15:10 Neutrophils # (Manual) 864 /uL ([id number]) L 07/12/18 11:41 RBC Morphology See below 08/02/18 10:57 Poikilocytosis 1+ H 03/12/18 09:26 Anisocytosis 1+ H 04/05/18 13:24 Macrocytosis 2+ H 08/02/18 10:57 Sodium 135 mmol/L (137-145) L 08/02/18 10:57 Potassium 4.8 mmol/L (3.4-5.1) 08/02/18 10:57 Chloride 99 mmol/L (98-107) 08/02/18 10:57 Carbon Dioxide 24 mmol/L (22-32) 08/02/18 10:57 BUN 16 mg/dL (7-17) 08/02/18 10:57 Creatinine 0.90 mg/dL (0.52-1.04) 08/02/18 10:57 Estimated GFR > 60.0 mL/min (>60) 08/02/18 10:57 BUN/Creatinine Ratio 17.8 (6-22) 08/02/18 10:57 Glucose 87 mg/dL (80-110) 08/02/18 10:57 Calcium 9.8 mg/dL (8.4-10.2) 08/02/18 10:57 Total Bilirubin 2.5 mg/dL (0.2-1.3) H 08/02/18 10:57 AST 33 IU/L (14-36) 08/02/18 10:57 ALT 17 IU/L (9-52) 08/02/18 10:57 Alkaline Phosphatase 103 U/L (38-126) 08/02/18 10:57 Total Protein 7.3 g/dL (6.3-8.2) 08/02/18 10:57 Albumin 4.7 g/dL (3.5-5.0) 08/02/18 10:57 Globulin 2.6 g/dL (1.7-4.1) 08/02/18 10:57 Albumin/Globulin Ratio 1.8 (1.0-2.8) 08/02/18 10:57 Assessment and Plan (1) Primary cancer of left breast with metastasis to other site Overview: 62 year old female presented with weight loss, abdominal pain, and diarrhea. CT abd/pelvis 01/25/2018: diffuse osseous metastasis. EGD/C-scope 01/25/2018: edematous mucosa in the cardia, gastric fundus and duodenm, congested mucosa in the entire examined colon; colon/gastric biopsies found metastatic carcinoma consistent with lobular carcinoma of breast. CT chest 01/27/2018 showed no pulmonary parenchymal nodules or adenopathy, but it showed diffuse osseous predominantly blastic metastasis. Infiltration of the proximal right humerus was noted. On January 27, 2018 patient underwent left breast ultrasound-guided core biopsies:invasive lobular carcinoma, intermediate grade, 4 of 9 cores involved, 6 mm in greatest length of carcinoma, without identifiable lymphovascular invasion, without ductal carcinoma in-situ present, ER positive (3+, 100% of cells), SC positive (1+, 30% of cells), Ki 67 intermediate (10% of cells), HER2 IHC equivocal for HER2 (overexpression 2+, 20% of cells), FISH negative by FISH. MRI of the brain on 02/11/2018. Brain MRI: diffuse thickening and enhancement throughout the dura including the falx, suspicious for diffuse meningeal metastasis. She was started on endocrine therapy on 02/08/2018 with fulvestrant which was switched to Letrazole on 04/20/2018 per patient request. She was started on palbociclib 3 weeks on and 1 week off on 02/19/2018. On 07/26/2018, palbociclib was switched to abemaciclib 150 mg twice daily. On 08/05/2018, she had to stop abemaciclib because of severe fatigue, diarrhea, nausea, and vomiting. Thereafter, we stopped abemaciclib permanently, and restart the palbociclib. Assessment Patient tolerated letrozole and palbociclib relatively well. She does report some joint pain. Her clinical symptoms have remained stable for example mild nausea, mild abdominal discomfort and mild diarrhea. Patient's white cell count today is 1.6. Clinically no fever and no chills. I discussed with her that this is an expected finding when patient is using palbociclib. I talked with her if there is no fever I will continue monitoring. If she develops fever she needs to call us or go to the emergency room. Patient and patient's daughter both voiced understanding. And I talked about the use of fulvestrant, patient said that she would not like to start the cause this medication makes her feel sick. Plan: 1. Continue Letrazole 2.5 mg daily for now 2. Continue Palbociclib 100 mg on day 1-21, every 28 days 3. RTC in 10/18/2018. CBC, CMP (2) Bone metastasis Assessment: CT chest 01/27/2018 showed no pulmonary parenchymal nodules or adenopathy, but it showed diffuse osseous predominantly blastic metastasis and infiltration of the proximal right humerus was noted. Previously, we have discussed with the patient about the use of Xgeva. However we have not received the clearance from her dentist yet. The bone scan showed no evidence of osseus metastasis. It is quite surprising. It may be because of the use of the endocrine therapy and Ibrance. I will temporarily hold the Xgeva. Plan: Temporarily hold Xgeva 120 mg subQ monthly (3) Cachexia Assessment and Plan: Patient is gaining weight suggestive of treatment effect. We will continue current treatment without any changes. (4) Anemia Assessment: Laboratory tests from December 2017 clearly indicated that the patient has both folic acid deficiency as well as vitamin B12 deficiency. In addition the anemia also may be related to the underlying metastatic breast cancer itself. No iron deficiency. Plan: 1. Cont Vitamin B12 1000 mcg subQ monthly 2. Cont folic acid 2 mg daily (5) Diarrhea Assessment and Plan: Diarrhea has improved after we stopped Abemaciclib. Immodium or Lomotil prn. (6) Dizziness Likely related to the possible meningeal metastasis. But LP cytology negative. I encourage her to get MRI study and follow up at [facility] (7) Pain Abdomen pain is related to metastatic involvement of the GI tract by her lobular breast cancer. Now improving. Plan: 1. Oxycodone 5 mg, 1# q4-6h prn 2. OTC stool softener as needed. (8) Hyperbilirubinemia Assessment and Plan: stable. cont monitoring. (9) Leukopenia due to antineoplastic chemotherapy Assessment and Plan: mild leukopenia. related to Abemaciclib. monitor.
[2018-09-02 12:11] LABS: Neutrophils Absolute Manual 864 /uL (3000-5900); Total Cells Counted 50
[2018-09-02 12:12] LABS: Macrocytosis 2+
[2018-10-14 10:50] LABS: Alanine Aminotransferase 20 IU/L (9-52); Albumin 4.3 g/dL (3.5-5.0); Albumin Globulin Ratio 1.7 (1.0-2.8); Alkaline Phosphatase 89 U/L (38-126); Aspartate Aminotransferase 42 IU/L (14-36); BUN Creatinine Ratio 16.7 (6-22); Bilirubin Total 1.7 mg/dL (0.2-1.3); Blood Urea Nitrogen 10 mg/dL (7-17); Calcium 9.4 mg/dL (8.4-10.2); Carbon Dioxide 27 mmol/L (22-32); Chloride 102 mmol/L (98-107); Estimated Glomerular Filt Rate > 60.0 mL/min (>60); Globulin 2.5 g/dL (1.7-4.1); Glucose 107 mg/dL (80-110); HEMOLYSIS < 15 (0-50); Potassium 4.3 mmol/L (3.4-5.1); Sodium 138 mmol/L (137-145); Total Protein 6.8 g/dL (6.3-8.2)
[2018-10-14 10:54] VITALS: BP 124/83; PULSE 66; RESP 18; TEMP 36.4; O2SAT 100
[2018-10-14 11:01] LABS: Hematocrit 30.9 % (36-46); Hemoglobin 10.7 g/dL (12.0-16.0); Mean Corpuscular HGB Conc 34.6 % (30-36); Mean Corpuscular Hemoglobin 40.6 PG (26-34); Mean Corpuscular Volume 117.4 fL (80-100); Platelet Count 77 X10^3/uL (150-400); Red Blood Cell Count 2.63 X10^6/uL (4.0-5.2); Red Cell Distribution Width 16.8 % (11.6-14.8)
[2018-10-14 11:07] LABS: Add Manual Diff / Slide Review YES; White Blood Cell Count 1.6 X10^3/uL (4.5-11.0)
--- NOTE | 2018-10-14 11:18 | ONC.PN ---
PN -Subjective Interval history: Patient currently is taking letrozole 2.5 mg once daily and palbociclib 100 mg/d / days. Patient is accompanied by her daughter to the clinic. She is complaining increasing nausea and vomiting. She is complaining of right upper abdomen 'marimar horses' inside. It has happened 3 times, and has got longer. Her diarrhea persists, maybe a little better, and no white stool. She noticed achiness in the arms bilaterally. 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 On 02/08/2018, patient was started on fulvestrant. On 02/19/2018, she was started on Palbociclib 125 mg daily, 3 weeks on and 1 week off. Because of the meningeal metastasis concern, patient was referred to [facility] for second opinion and was evaluated by Dr. Sparks on 03/25/2018. Dr. Sparks agreed with the treatment plan. Patient underwent LP on 04/02/2018 at [facility] and the cytology was negative for malignancy. During her last visit on 04/05/2018, patient requested that the injection of fulvestrant be switched to oral medications. After discussion, patient agreed to try letrozole 2.5 mg once a day. However, for unknown reason, patient received letrozole on April 20, 2018 and she started since then. The patient was evaluated at [facility] by Dr. Aldrich in Radiation Oncology department on 06/04/2018. Dr. Aldrich reviewed the MRI images. Dr. 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 He also discussed this case with Dr. Viviana Self (Neurooncologist) who feels the same. Dr. Aldrich explained to the patient that the plan is to repeat MRI of the brain as well as MRI of the whole spine in 3-4 weeks and then follow-up with him. Whole brain radiotherapy will be held at this time. Dr. Sparks also discussed with me about possibly switching to abemaciclib since it is an agent that can better cross the blood brain barrier. - Patient Self-Reported Symptoms SR Constitution: Fatigue/Malaise, Night Sweats SR eye issues: Vision changes SR ears, nose, mouth, throat issues: Nose bleeds SR Cardiovascular issues: Dizzy/lightheaded SR Skin issues: Dry skin, Skin rash or itching, Hair loss or scalp prob SR Gastrointestinal issues: Poor or no appetite, Nausea, Vomiting, Diarrhea SR Musculoskeletal issues: Joint pain or swelling, Muscle weakness, Cold hands or feet, Difficulty walking, Bone pain SR Neuro issues: Lightheaded/dizzy, Difficulty balancing SR Hematologic issues: Slow healing SR Endocrine issues: Hot flashes - Additional ROS All systems PM: reviewed and no additional remarkable complaints except as stated Home Medications and Allergies Home Medications Medication Instructions Recorded Confirmed Type lorazepam [Ativan] 0.5 mg SUBLINGUAL 4-6XD PRN #60 tab 02/04/18 10/14/18 Rx cyanocobalamin (vitamin B-12) 1,000 mcg PO DAILY 06/14/18 10/14/18 History [Vitamin B-12] folic acid 1 mg PO DAILY 06/14/18 10/14/18 History palbociclib [Ibrance] 100 mg PO DAILY #21 cap 08/12/18 10/14/18 Rx letrozole [Femara] 2.5 mg PO DAILY #90 tab 09/02/18 Rx ondansetron HCl [Zofran] 8 mg PRN PRN 10/14/18 10/14/18 History oxycodone 5 mg PO Q4-6H PRN #60 cap 10/14/18 Rx Allergies Allergy/AdvReac Type Severity Reaction Status Date / Time No Known Drug Allergies Allergy Verified 02/04/18 09:11 Exam Vital signs: Last Vital Signs Temp 97.6 F 10/14/18 10:54 Pulse 66 10/14/18 10:54 Resp 18 10/14/18 10:54 BP 124/83 10/14/18 10:54 Pulse Ox 100 10/14/18 10:54 ECOG 1 Narrative: Constitutional: well developed, thin, well groomed, pleasant and cooperative, accompanied by daughter. HEENT: NCAT, EOMI, PERRLA, anicteric sclera, mild hearing difficulty; Oral mucus membrane moist and without ulcers. Neck: Supple, symmetrical, and tracheal midline; No palpable thyromegaly and no palpable lymph nodes. Respiratory: No use of accessory muscles. Clear to auscultation, and no wheezes Cardiovascular: Regular rate and rhythm, S1 and S2 normal, no murmurs gallops or rubs. No JVD. Abdomen: Soft, mild epigastric tenderness, no palpable organomegaly, no hernia, no palpable masses. Lower extremities: No pitting edema of lower extremities. Lymphatic: no palpable lymph nodes in the neck, axillae Skin: no rashes, no ulcers, no petechiae Neurological: Awake and alert and oriented x3. CN II-XII grossly intact. No focal motor or sensory deficit. Psychiatric: Good judgment, good insight, normal affect, normal thought process, cooperative, no depression Results - Labs Laboratory Last Values WBC 1.6 X10^3/uL (4.5-11.0) L* 10/14/18 10:19 RBC 2.63 X10^6/uL (4.0-5.2) L 10/14/18 10:19 Hgb 10.7 g/dL (12.0-16.0) L 10/14/18 10:19 Hct 30.9 % (36-46) L 10/14/18 10:19 MCV 117.4 fL (80-100) H 10/14/18 10:19 MCH 40.6 PG (26-34) H 10/14/18 10:19 MCHC 34.6 % (30-36) 10/14/18 10:19 RDW 16.8 % (11.6-14.8) H 10/14/18 10:19 Plt Count 77 X10^3/uL (150-400) L 10/14/18 10:19 Neut % (Auto) Not Reportable 10/14/18 10:19 Lymph % (Auto) Not Reportable 10/14/18 10:19 [place] % (Auto) Not Reportable 10/14/18 10:19 Eos % (Auto) Not Reportable 10/14/18 10:19 Baso % (Auto) Not Reportable 10/14/18 10:19 Neut # (Auto) 2000 /uL ([id number]) 08/02/18 10:57 Lymph # (Auto) Not Reportable 10/14/18 10:19 [place] # (Auto) Not Reportable 10/14/18 10:19 Eos # (Auto) 0 /uL (0-450) 08/02/18 10:57 Baso # (Auto) Not Reportable 10/14/18 10:19 Total Counted 50 09/02/18 11:23 Seg Neutrophils % 54.0 % (38-70) 09/02/18 11:23 Band Neutrophils % 4.0 % (3-7) 07/12/18 11:41 Lymphocytes % (Manual) 42.0 % (25-45) 09/02/18 11:23 Atypical Lymphs % 12.0 % (-0) H 07/12/18 11:41 Monocytes % (Manual) 4.0 % (2-11) 09/02/18 11:23 Eosinophils % (Manual) 2.0 % (2-4) 05/17/18 15:10 Basophils % (Manual) 1.0 % (0-1) 05/17/18 15:10 Neutrophils # (Manual) 864 /uL ([id number]) L 09/02/18 11:23 RBC Morphology Not Reportable 09/02/18 11:23 Poikilocytosis 1+ H 03/12/18 09:26 Anisocytosis 1+ H 04/05/18 13:24 Macrocytosis 2+ H 09/02/18 11:23 Sodium 138 mmol/L (137-145) 10/14/18 10:19 Potassium 4.3 mmol/L (3.4-5.1) 10/14/18 10:19 Chloride 102 mmol/L (98-107) 10/14/18 10:19 Carbon Dioxide 27 mmol/L (22-32) 10/14/18 10:19 BUN 10 mg/dL (7-17) 10/14/18 10:19 Creatinine 0.60 mg/dL (0.52-1.04) 10/14/18 10:19 Estimated GFR > 60.0 mL/min (>60) 10/14/18 10:19 BUN/Creatinine Ratio 16.7 (6-22) 10/14/18 10:19 Glucose 107 mg/dL (80-110) 10/14/18 10:19 Calcium 9.4 mg/dL (8.4-10.2) 10/14/18 10:19 Total Bilirubin 1.7 mg/dL (0.2-1.3) H 10/14/18 10:19 AST 42 IU/L (14-36) H 10/14/18 10:19 ALT 20 IU/L (9-52) 10/14/18 10:19 Alkaline Phosphatase 89 U/L (38-126) 10/14/18 10:19 Total Protein 6.8 g/dL (6.3-8.2) 10/14/18 10:19 Albumin 4.3 g/dL (3.5-5.0) 10/14/18 10:19 Globulin 2.5 g/dL (1.7-4.1) 10/14/18 10:19 Albumin/Globulin Ratio 1.7 (1.0-2.8) 10/14/18 10:19 Assessment and Plan (1) Primary cancer of left breast with metastasis to other site Overview: 62 year old female presented with weight loss, abdominal pain, and diarrhea. CT abd/pelvis 01/25/2018: diffuse osseous metastasis. EGD/C-scope 01/25/2018: edematous mucosa in the cardia, gastric fundus and duodenm, congested mucosa in the entire examined colon; colon/gastric biopsies found metastatic carcinoma consistent with lobular carcinoma of breast. CT chest 01/27/2018 showed no pulmonary parenchymal nodules or adenopathy, but it showed diffuse osseous predominantly blastic metastasis. Infiltration of the proximal right humerus was noted. On January 27, 2018 patient underwent left breast ultrasound-guided core biopsies:invasive lobular carcinoma, intermediate grade, 4 of 9 cores involved, 6 mm in greatest length of carcinoma, without identifiable lymphovascular invasion, without ductal carcinoma in-situ present, ER positive (3+, 100% of cells), RI positive (1+, 30% of cells), Ki 67 intermediate (10% of cells), HER2 IHC equivocal for HER2 (overexpression 2+, 20% of cells), FISH negative by FISH. MRI of the brain on 02/11/2018. Brain MRI: diffuse thickening and enhancement throughout the dura including the falx, suspicious for diffuse meningeal metastasis. She was started on endocrine therapy on 02/08/2018 with fulvestrant which was switched to Letrazole on 04/20/2018 per patient request. She was started on palbociclib 3 weeks on and 1 week off on 02/19/2018. On 07/26/2018, palbociclib was switched to abemaciclib 150 mg twice daily. On 08/05/2018, she had to stop abemaciclib because of severe fatigue, diarrhea, nausea, and vomiting. Thereafter, we stopped abemaciclib permanently, and restart the palbociclib. Assessment Since her previous visit with me, she has developed new signs and symptoms including subcutaneous nodules, abdominal pain, worsening nausea and vomiting, and continued persistent diarrhea. Patient's total white cell count today is 1.6. I talked with the patient that these cluster of symptoms and signs are worrisome for disease progression. I will obtain a restaging studies. Meanwhile will temporarily hold off on the palbociclib given the neutropenia. Plan: 1. Continue Letrazole 2.5 mg daily for now 2. Hold Palbociclib 3. CT CAP with contrast 4. Bone scan 5. RTC in 2 week for follow up visit. CBC, CMP (2) Bone metastasis Assessment: CT chest 01/27/2018 showed no pulmonary parenchymal nodules or adenopathy, but it showed diffuse osseous predominantly blastic metastasis and infiltration of the proximal right humerus was noted. Previously, we have discussed with the patient about the use of Xgeva. However we have not received the clearance from her dentist yet. The bone scan showed no evidence of osseus metastasis. It is quite surprising. It may be because of the use of the endocrine therapy and Ibrance. I will temporarily hold the Xgeva. Plan: Temporarily hold Xgeva 120 mg subQ monthly (3) Cachexia Assessment and Plan: Patient is gaining weight suggestive of treatment effect. We will continue current treatment without any changes. (4) Anemia Assessment: Laboratory tests from December 2017 clearly indicated that the patient has both folic acid deficiency as well as vitamin B12 deficiency. In addition the anemia also may be related to the underlying metastatic breast cancer itself. No iron deficiency. Plan: 1. Cont Vitamin B12 1000 mcg subQ monthly 2. Cont folic acid 2 mg daily (5) Diarrhea Assessment and Plan: Diarrhea has improved after we stopped Abemaciclib. Immodium or Lomotil prn. (6) Dizziness Likely related to the possible meningeal metastasis. But LP cytology negative. I encourage her to get MRI study and follow up at [facility] (7) Pain Abdomen pain is related to metastatic involvement of the GI tract by her lobular breast cancer. Now improving. Plan: 1. Oxycodone 5 mg, 1# q4-6h prn 2. OTC stool softener as needed. (8) Hyperbilirubinemia Assessment and Plan: stable. cont monitoring. (9) Leukopenia due to antineoplastic chemotherapy Assessment and Plan: mild leukopenia. related to Abemaciclib. monitor.
[2018-10-14 12:02] LABS: Neutrophils Absolute Manual 864 /uL (3000-5900); Total Cells Counted 50
[2018-10-14 12:04] LABS: Macrocytosis 3+; Ovalocytes 1+; Platelet Estimate Decreased on smear
--- NOTE | 2018-11-01 08:46 | ONC.PN ---
PN -Subjective Interval history: Patient currently is taking letrozole 2.5 mg once daily and palbociclib 100 mg/d 21/28 days. Patient is accompanied by her daughter to the clinic to review the most recent CT scan and bone results. Clinically patient said that she is not making any progress yet. She continues to complain abdominal. She is eating little. Her weight continues to decrease. She said that the diarrhea on the other hand has improved. No other new complaints. Patient underwent CT scan on 10/27/2018. The CT scan showed overall stable examination since 07/20/2018. The CT re-demonstrated widespread osseous metastasis that has not grossly changed. There is unchanged appearance of colonic wall thickening involving the hepatic flexure and transverse colon. There is an indeterminate cystic lesion involving the region of the pancreatic tail which appears grossly unchanged. same day bone scan showed diffusely he 2 gene is increased bone uptake corresponding to diffuse metastatic disease seen on CT. There is a focal uptake at the right costovertebral junction of T11 suggestive of active metastatic disease. Patient said that the subcutaneous nodules which are located in the left supraclavicular area the right posterior occipital area and upper back have not changed. 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 On 02/08/2018, patient was started on fulvestrant. On 02/19/2018, she was started on Palbociclib 125 mg daily, 3 weeks on and 1 week off. Because of the meningeal metastasis concern, patient was referred to [facility] for second opinion and was evaluated by Dr. Sparks on 03/25/2018. Dr. Sparks agreed with the treatment plan. Patient underwent LP on 04/02/2018 at [facility] and the cytology was negative for malignancy. During her last visit on 04/05/2018, patient requested that the injection of fulvestrant be switched to oral medications. After discussion, patient agreed to try letrozole 2.5 mg once a day. However, for unknown reason, patient received letrozole on April 20, 2018 and she started since then. The patient was evaluated at [facility] by Dr. Aldrich in Radiation Oncology department on 06/04/2018. Dr. Aldrich reviewed the MRI images. Dr. 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 He also discussed this case with Dr. Viviana Self (Neurooncologist) who feels the same. Dr. Aldrich explained to the patient that the plan is to repeat MRI of the brain as well as MRI of the whole spine in 3-4 weeks and then follow-up with him. Whole brain radiotherapy will be held at this time. Dr. Sparks also discussed with me about possibly switching to abemaciclib since it is an agent that can better cross the blood brain barrier. - Patient Self-Reported Symptoms SR Constitution: Fatigue/Malaise, Night Sweats SR eye issues: Vision changes SR ears, nose, mouth, throat issues: Nose bleeds SR Cardiovascular issues: Dizzy/lightheaded SR Skin issues: Dry skin, Skin rash or itching, Hair loss or scalp prob SR Gastrointestinal issues: Poor or no appetite, Nausea, Vomiting, Diarrhea SR Musculoskeletal issues: Joint pain or swelling, Muscle weakness, Cold hands or feet, Difficulty walking, Bone pain SR Neuro issues: Lightheaded/dizzy, Difficulty balancing SR Hematologic issues: Slow healing SR Endocrine issues: Hot flashes - Additional ROS All systems PM: reviewed and no additional remarkable complaints except as stated Home Medications and Allergies Home Medications Medication Instructions Recorded Confirmed Type lorazepam [Ativan] 0.5 mg SUBLINGUAL 4-6XD PRN #60 tab 02/04/18 10/14/18 Rx cyanocobalamin (vitamin B-12) 1,000 mcg PO DAILY 06/14/18 10/14/18 History [Vitamin B-12] folic acid 1 mg PO DAILY 06/14/18 10/14/18 History letrozole [Femara] 2.5 mg PO DAILY #90 tab 09/02/18 Rx ondansetron HCl [Zofran] 8 mg PRN PRN 10/14/18 10/14/18 History oxycodone 5 mg PO Q4-6H PRN #60 cap 10/14/18 Rx Allergies Allergy/AdvReac Type Severity Reaction Status Date / Time No Known Drug Allergies Allergy Verified 02/04/18 09:11 Exam Vital signs: Last Vital Signs Temp 99.7 F H 11/01/18 09:50 Pulse 96 H 11/01/18 09:50 Resp 16 11/01/18 09:50 BP 126/78 11/01/18 09:50 Pulse Ox 99 11/01/18 09:50 ECOG 1 Narrative: Constitutional: well developed, thin, well groomed, pleasant and cooperative, accompanied by daughter. HEENT: NCAT, EOMI, PERRLA, anicteric sclera, mild hearing difficulty; Oral mucus membrane moist and without ulcers. Neck: Supple, symmetrical, and tracheal midline; No palpable thyromegaly and no palpable lymph nodes. Respiratory: No use of accessory muscles. Clear to auscultation, and no wheezes Cardiovascular: Regular rate and rhythm, S1 and S2 normal, no murmurs gallops or rubs. No JVD. Abdomen: Soft, mild epigastric tenderness, no palpable organomegaly, no hernia, no palpable masses. Lower extremities: No pitting edema of lower extremities. Lymphatic: no palpable lymph nodes in the neck, axillae Skin: A 1 cm subcutaneous nodule noted in the left supraclavicular area, a slightly smaller subcutaneous nodule in the back of the neck, and a nodule in the upper back. Neurological: Awake and alert and oriented x3. CN II-XII grossly intact. No focal motor or sensory deficit. Psychiatric: Good judgment, good insight, normal affect, normal thought process, cooperative, no depression Results - Labs Laboratory Last Values WBC 3.8 X10^3/uL (4.5-11.0) L 11/01/18 10:18 RBC 2.89 X10^6/uL (4.0-5.2) L 11/01/18 10:18 Hgb 11.8 g/dL (12.0-16.0) L 11/01/18 10:18 Hct 34.0 % (36-46) L 11/01/18 10:18 MCV 117.7 fL (80-100) H 11/01/18 10:18 MCH 41.0 PG (26-34) H 11/01/18 10:18 MCHC 34.9 % (30-36) 11/01/18 10:18 RDW 17.5 % (11.6-14.8) H 11/01/18 10:18 Plt Count 165 X10^3/uL (150-400) 11/01/18 10:18 Neut % (Auto) 65.3 % (50-75) 11/01/18 10:18 Lymph % (Auto) 21.1 % (25-40) L 11/01/18 10:18 [place] % (Auto) 11.7 % (3-14) 11/01/18 10:18 Eos % (Auto) 0.9 % (2-4) L 11/01/18 10:18 Baso % (Auto) 1.0 % (0-2) 11/01/18 10:18 Neut # (Auto) 2500 /uL (1713-5463) 11/01/18 10:18 Lymph # (Auto) 800 /uL (2478-5440) L 11/01/18 10:18 [place] # (Auto) 400 /uL (0-900) 11/01/18 10:18 Eos # (Auto) 0 /uL (0-450) 11/01/18 10:18 Baso # (Auto) 0 /uL (0-100) 11/01/18 10:18 Total Counted 50 10/14/18 10:19 Seg Neutrophils % 48.0 % (38-70) 10/14/18 10:19 Band Neutrophils % 6.0 % (3-7) 10/14/18 10:19 Lymphocytes % (Manual) 28.0 % (25-45) 10/14/18 10:19 Atypical Lymphs % 12.0 % (-0) H 07/12/18 11:41 Monocytes % (Manual) 14.0 % (2-11) H 10/14/18 10:19 Eosinophils % (Manual) 2.0 % (2-4) 10/14/18 10:19 Basophils % (Manual) 2.0 % (0-1) H 10/14/18 10:19 Neutrophils # (Manual) 864 /uL (7371-5454) L 10/14/18 10:19 Platelet Estimate Decreased on smear 10/14/18 10:19 RBC Morphology See below 11/01/18 10:18 Poikilocytosis 1+ H 03/12/18 09:26 Anisocytosis 1+ H 11/01/18 10:18 Macrocytosis 3+ H 11/01/18 10:18 Ovalocytes 1+ H 10/14/18 10:19 Sodium 139 mmol/L (137-145) 11/01/18 10:18 Potassium 4.4 mmol/L (3.4-5.1) 11/01/18 10:18 Chloride 102 mmol/L (98-107) 11/01/18 10:18 Carbon Dioxide 28 mmol/L (22-32) 11/01/18 10:18 BUN 10 mg/dL (7-17) 11/01/18 10:18 Creatinine 0.60 mg/dL (0.52-1.04) 11/01/18 10:18 Estimated GFR > 60.0 mL/min (>60) 11/01/18 10:18 BUN/Creatinine Ratio 16.7 (6-22) 11/01/18 10:18 Glucose 144 mg/dL (80-110) H 11/01/18 10:18 Calcium 9.4 mg/dL (8.4-10.2) 11/01/18 10:18 Total Bilirubin 1.4 mg/dL (0.2-1.3) H 11/01/18 10:18 AST 67 IU/L (14-36) H 11/01/18 10:18 ALT 25 IU/L (9-52) 11/01/18 10:18 Alkaline Phosphatase 91 U/L (38-126) 11/01/18 10:18 Total Protein 6.8 g/dL (6.3-8.2) 11/01/18 10:18 Albumin 4.3 g/dL (3.5-5.0) 11/01/18 10:18 Globulin 2.5 g/dL (1.7-4.1) 11/01/18 10:18 Albumin/Globulin Ratio 1.7 (1.0-2.8) 11/01/18 10:18 Assessment and Plan (1) Primary cancer of left breast with metastasis to other site Overview: 62 year old female presented with weight loss, abdominal pain, and diarrhea. CT abd/pelvis 01/25/2018: diffuse osseous metastasis. EGD/C-scope 01/25/2018: edematous mucosa in the cardia, gastric fundus and duodenm, congested mucosa in the entire examined colon; colon/gastric biopsies found metastatic carcinoma consistent with lobular carcinoma of breast. CT chest 01/27/2018 showed no pulmonary parenchymal nodules or adenopathy, but it showed diffuse osseous predominantly blastic metastasis. Infiltration of the proximal right humerus was noted. On January 27, 2018 patient underwent left breast ultrasound-guided core biopsies:invasive lobular carcinoma, intermediate grade, 4 of 9 cores involved, 6 mm in greatest length of carcinoma, without identifiable lymphovascular invasion, without ductal carcinoma in-situ present, ER positive (3+, 100% of cells), OR positive (1+, 30% of cells), Ki 67 intermediate (10% of cells), HER2 IHC equivocal for HER2 (overexpression 2+, 20% of cells), FISH negative by FISH. MRI of the brain on 02/11/2018. Brain MRI: diffuse thickening and enhancement throughout the dura including the falx, suspicious for diffuse meningeal metastasis. She was started on endocrine therapy on 02/08/2018 with fulvestrant which was switched to Letrazole on 04/20/2018 per patient request. She was started on palbociclib 3 weeks on and 1 week off on 02/19/2018. On 07/26/2018, palbociclib was switched to abemaciclib 150 mg twice daily. On 08/05/2018, she had to stop abemaciclib because of severe fatigue, diarrhea, nausea, and vomiting. Thereafter, we stopped abemaciclib permanently, and restart the palbociclib. Assessment Today, I reviewed the CT scan and the bone scan results with the patient. Overall the impression is that her metastatic disease seems to be stable. I talked with her that I will continue the letrozole, palbociclib, I will also add Xgeva for the bone metastatic disease.. Plan: 1. Continue Letrazole 2.5 mg daily for now 2. Resume Palbociclib 125 mg on day 1-21 every 28 days 3. Xgeva 120 mg subQ monthly 4. RTC in 4 weeks for follow up visit. CBC, CMP (2) Bone metastasis Assessment: CT chest 01/27/2018 showed no pulmonary parenchymal nodules or adenopathy, but it showed diffuse osseous predominantly blastic metastasis and infiltration of the proximal right humerus was noted. Previously, we have discussed with the patient about the use of Xgeva. However we have not received the clearance from her dentist yet. The bone scan showed no evidence of osseus metastasis. It is quite surprising. I reviewed the CT scan as well as the bone scan from 10/27/2018. It showed widespread bone metastasis both on the CT scan as well as on the bone scan. Plan: I will start Xgeva 120 mg subQ monthly (3) Cachexia Assessment and Plan: Overall from March of this year, patient has lost about 10 kilos. I encouraged patient to increase oral intake.. (4) Anemia Assessment: Laboratory tests from December 2017 clearly indicated that the patient has both folic acid deficiency as well as vitamin B12 deficiency. In addition the anemia also may be related to the underlying metastatic breast cancer itself. No iron deficiency. Plan: 1. Cont Vitamin B12 1000 mcg subQ monthly 2. Cont folic acid 2 mg daily (5) Diarrhea Assessment and Plan: Diarrhea has improved after we stopped Abemaciclib. Immodium or Lomotil prn. (6) Dizziness Likely related to the possible meningeal metastasis. But LP cytology negative. I encourage her to get MRI study and follow up at [facility] (7) Pain Abdomen pain is related to metastatic involvement of the GI tract by her lobular breast cancer. Now improving. Plan: 1. Oxycodone 5 mg, 1# q4-6h prn 2. OTC stool softener as needed. (8) Hyperbilirubinemia Assessment and Plan: stable. cont monitoring. (9) Leukopenia due to antineoplastic chemotherapy Assessment and Plan: mild leukopenia. related to Abemaciclib. monitor. (10) Subcutaneous nodule Patient has noticed couple of subcutaneous nodules recently. She claimed those nodules are new. They have not changed in size. I talked with the patient that I will refer her to our surgeon to consider excision of biopsy of 1 of the nodules to find out if the are actually metastasis from her breast cancer.
[2018-11-01 09:50] VITALS: BP 126/78; PULSE 96; RESP 16; TEMP 37.6; O2SAT 99
--- NOTE | 2018-11-01 10:22 | ONC.SCHED ---
Tried to call patient to schedule and give her info that Joyce gave me regarding ferry [place] and that she needs to get her records that she wants from medical records downstairs. No answer or VM that I could leave, phone just rang.
[2018-11-01 11:04] LABS: Add Manual Diff / Slide Review NO; Basophils Absolute Auto 0 /uL (0-100); Eosinophils Absolute Auto 0 /uL (0-450); Eosinophils Percent Auto 0.9 % (2-4); Hemoglobin 11.8 g/dL (12.0-16.0); Lymphocytes Absolute Auto 800 /uL (1100-4500); Lymphocytes Percent Auto 21.1 % (25-40); Mean Corpuscular HGB Conc 34.9 % (30-36); Mean Corpuscular Volume 117.7 fL (80-100); Monocytes Absolute Auto 400 /uL (0-900); Monocytes Percent Auto 11.7 % (3-14); Neutrophils Absolute Auto 2500 /uL (1500-7000); Neutrophils Percent Auto 65.3 % (50-75); Platelet Count 165 X10^3/uL (150-400); Red Blood Cell Count 2.89 X10^6/uL (4.0-5.2); Red Cell Distribution Width 17.5 % (11.6-14.8); White Blood Cell Count 3.8 X10^3/uL (4.5-11.0)
[2018-11-01 11:18] LABS: Alanine Aminotransferase 25 IU/L (9-52); Albumin 4.3 g/dL (3.5-5.0); Albumin Globulin Ratio 1.7 (1.0-2.8); Alkaline Phosphatase 91 U/L (38-126); Aspartate Aminotransferase 67 IU/L (14-36); BUN Creatinine Ratio 16.7 (6-22); Bilirubin Total 1.4 mg/dL (0.2-1.3); Blood Urea Nitrogen 10 mg/dL (7-17); Calcium 9.4 mg/dL (8.4-10.2); Carbon Dioxide 28 mmol/L (22-32); Chloride 102 mmol/L (98-107); Estimated Glomerular Filt Rate > 60.0 mL/min (>60); Globulin 2.5 g/dL (1.7-4.1); Glucose 144 mg/dL (80-110); HEMOLYSIS < 15 (0-50); Potassium 4.4 mmol/L (3.4-5.1); Sodium 139 mmol/L (137-145); Total Protein 6.8 g/dL (6.3-8.2)
--- NOTE | 2018-11-01 11:28 | ONC.SCHED ---
Dr. Park ordered Xgeva today but patient's insurance requires prior auth. I am working on the prior auth now with the assistance of Luz on the clinical part. I tried calling patient to get her scheduled for labs/Dr. Johnson/Xmeirva but got no answer. I will keep calling.
[2018-11-01 11:55] LABS: Macrocytosis 3+
[2018-11-01 11:56] LABS: Anisocytosis 1+
--- NOTE | 2018-11-03 11:40 | ONC.SCHED ---
Tried calling Cullen back @ the number on file for her and the number that Mily gave me. We had terrible nurse receptionist and the patient said she would call us back. I'm trying really hard to get her prior auth done. The hold up is Dr. Park has not signed his dictation for this patient and they need his clinical notes. I've tried emailing Dr. Park and he couldn't figure out how to access my email via his iphone. I responded back asking if he could respond to the email via a computer and have not heard back. I will now call Brooke Bauer.
--- NOTE | 2018-11-03 12:02 | PC.NURSE ---
IBRANCE: Daughter called requesting to know if patient to restart ibrance based on labe results. This nurse left copy of lab results and this question for Dr. Park to be addressed on 11/04.
--- NOTE | 2018-11-04 18:43 | PC.NURSE ---
IBRANCE RESTART: Patient informed per telephone fo Dr. Armas verbal order to restart her Ibrance.
--- NOTE | 2018-12-08 11:40 | ONC.SCHED ---
I spoke to Keely about having her labs drawn at [place] (Dr Mckeon's office) and faxed over the orders but later when I reminded her of her appointment and asked if she had her labs drawn she did not remember any of our previous conversation . . . [place] to see the doctor. I spoke to Mily Garcia regarding a possible memory issue with Keely . . . we'll both see if we should be talking to her daughter in the future regarding appointments when she comes in on Thursday.
[2018-12-13 09:50] VITALS: BP 122/76; PULSE 69; RESP 16; TEMP 37.2; O2SAT 100
--- NOTE | 2018-12-13 09:54 | P.PNONC_ITS ---
PN -Subjective Interval history: ID/CC: 63 year old with metastatic breast cancer now on treatment with letrozole 2.5 mg once daily and palbociclib 100 mg/d 21/ days. She is here to initiate Xgeva injection. Interim Events: Patient said that the subcutaneous nodules which are located in the left supraclavicular area the right posterior occipital area and upper back have not changed. Patient continues to report same degree of dizziness, morning sickness, and diarrhea. Patient also said that the unsteadiness of her feet has also remained about the same. Patient reports some epigastric pain which has always been like that had no changes. Today she said she would would like to transfer her care to a closer cancer care at [place] Dr. Vera. 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 On 02/08/2018, patient was started on fulvestrant. On 02/19/2018, she was started on Palbociclib 125 mg daily, 3 weeks on and 1 week off. Because of the meningeal metastasis concern, patient was referred to [facility] for second opinion and was evaluated by Dr. Sparks on 03/25/2018. Dr. Sparks agreed with the treatment plan. Patient underwent LP on 04/02/2018 at [facility] and the cytology was negative for malignancy. During her last visit on 04/05/2018, patient requested that the injection of fulvestrant be switched to oral medications. After discussion, patient agreed to try letrozole 2.5 mg once a day. However, for unknown reason, patient received letrozole on April 20, 2018 and she started since then. The patient was evaluated at [facility] by Dr. Aldrich in Radiation Oncology department on 06/04/2018. Dr. Aldrich reviewed the MRI images. Dr. 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 He also discussed this case with Dr. Viviana Self (Neurooncologist) who feels the same. Dr. Aldrich explained to the patient that the plan is to repeat MRI of the brain as well as MRI of the whole spine in 3-4 wee wa and then follow-up with him. Whole brain radiotherapy will be held at this time. Dr. Sparks also discussed with me about possibly switching to abemaciclib since it is an agent that can better cross the blood brain barrier. Patient underwent CT scan on 10/27/2018. The CT scan showed overall stable examination since 07/20/2018. The CT re-demonstrated widespread osseous metastasis that has not grossly changed. There is unchanged appearance of colonic wall thickening involving the hepatic flexure and transverse colon. There is an indeterminate cystic lesion involving the region of the pancreatic tail which appears grossly unchanged. same day bone scan showed diffusely he 2 gene is increased bone uptake corresponding to diffuse metastatic disease seen on CT. There is a focal uptake at the right costovertebral junction of T11 suggestive of active metastatic disease. - Patient Self-Reported Symptoms SR Constitution: Fatigue/Malaise, Night Sweats SR eye issues: Vision changes SR ears, nose, mouth, throat issues: Nose bleeds SR Cardiovascular issues: Dizzy/lightheaded SR Skin issues: Dry skin, Skin rash or itching, Hair loss or scalp prob SR Gastrointestinal issues: Poor or no appetite, Nausea, Diarrhea SR Musculoskeletal issues: Difficulty walking, Bone pain SR Neuro issues: Lightheaded/dizzy SR Hematologic issues: Slow healing SR Endocrine issues: Hot flashes - Additional ROS All systems PM: reviewed and no additional remarkable complaints except as stated Home Medications and Allergies Home Medications Medication Instructions Recorded Confirmed Type lorazepam [Ativan] 0.5 mg SUBLINGUAL 4-6XD PRN #60 tab 02/04/18 12/13/18 Rx cyanocobalamin (vitamin B-12) 1,000 mcg PO DAILY 06/14/18 12/13/18 History [Vitamin B-12] folic acid 1 mg PO DAILY 06/14/18 12/13/18 History letrozole [Femara] 2.5 mg PO DAILY #90 tab 09/02/18 12/13/18 Rx ondansetron HCl [Zofran] 8 mg PRN PRN 10/14/18 12/13/18 History oxycodone 5 mg PO Q4-6H PRN #60 cap 10/14/18 12/13/18 Rx Allergies Allergy/AdvReac Type Severity Reaction Status Date / Time No Known Drug Allergies Allergy Verified 02/04/18 09:11 Exam Vital signs: Vital Signs Temp Pulse Resp BP Pulse Ox 12/13/18 09:50 98.9 F 69 16 122/76 100 Intake and Output 12/12/18 12/13/18 12/13/18 23:59 07:59 15:59 Other: Weight 43 kg Patient Weight 12/13/18 23:59 Weight 43 kg Narrative: Constitutional: well developed, thin, well groomed, pleasant and cooperative, accompanied by daughter. HEENT: NCAT, EOMI, PERRLA, anicteric sclera, mild hearing difficulty; Oral mucus membrane moist and without ulcers. Neck: Supple, symmetrical, and tracheal midline; No palpable thyromegaly and no palpable lymph nodes. Respiratory: No use of accessory muscles. Clear to auscultation, and no wheezes Cardiovascular: Regular rate and rhythm, S1 and S2 normal, no murmurs gallops or rubs. No JVD. Abdomen: Soft, mild epigastric tenderness, no palpable organomegaly, no hernia, no palpable masses. Lower extremities: No pitting edema of lower extremities. Lymphatic: no palpable lymph nodes in the neck, axillae Skin: A 1 cm subcutaneous nodule noted in the left supraclavicular area, a slightly smaller subcutaneous nodule in the back of the neck, and a nodule in the upper back. Neurological: Awake and alert and oriented x3. CN II-XII grossly intact. No focal motor or sensory deficit. Psychiatric: Good judgment, good insight, normal affect, normal thought process, cooperative, no depression Results - Labs Laboratory Last Values WBC 3.8 X10^3/uL (4.5-11.0) L 11/01/18 10:18 RBC 2.89 X10^6/uL (4.0-5.2) L 11/01/18 10:18 Hgb 11.8 g/dL (12.0-16.0) L 11/01/18 10:18 Hct 34.0 % (36-46) L 11/01/18 10:18 MCV 117.7 fL (80-100) H 11/01/18 10:18 MCH 41.0 PG (26-34) H 11/01/18 10:18 MCHC 34.9 % (30-36) 11/01/18 10:18 RDW 17.5 % (11.6-14.8) H 11/01/18 10:18 Plt Count 165 X10^3/uL (150-400) 11/01/18 10:18 Neut % (Auto) 65.3 % (50-75) 11/01/18 10:18 Lymph % (Auto) 21.1 % (25-40) L 11/01/18 10:18 Starke % (Auto) 11.7 % (3-14) 11/01/18 10:18 Eos % (Auto) 0.9 % (2-4) L 11/01/18 10:18 Baso % (Auto) 1.0 % (0-2) 11/01/18 10:18 Neut # (Auto) 2500 /uL (5056-5263) 11/01/18 10:18 Lymph # (Auto) 800 /uL (1528-3908) L 11/01/18 10:18 Starke # (Auto) 400 /uL (0-900) 11/01/18 10:18 Eos # (Auto) 0 /uL (0-450) 11/01/18 10:18 Baso # (Auto) 0 /uL (0-100) 11/01/18 10:18 Total Counted 50 10/14/18 10:19 Seg Neutrophils % 48.0 % (38-70) 10/14/18 10:19 Band Neutrophils % 6.0 % (3-7) 10/14/18 10:19 Lymphocytes % (Manual) 28.0 % (25-45) 10/14/18 10:19 Atypical Lymphs % 12.0 % (-0) H 07/12/18 11:41 Monocytes % (Manual) 14.0 % (2-11) H 10/14/18 10:19 Eosinophils % (Manual) 2.0 % (2-4) 10/14/18 10:19 Basophils % (Manual) 2.0 % (0-1) H 10/14/18 10:19 Neutrophils # (Manual) 864 /uL (7492-3614) L 10/14/18 10:19 Platelet Estimate Decreased on smear 10/14/18 10:19 RBC Morphology See below 11/01/18 10:18 Poikilocytosis 1+ H 03/12/18 09:26 Anisocytosis 1+ H 11/01/18 10:18 Macrocytosis 3+ H 11/01/18 10:18 Ovalocytes 1+ H 10/14/18 10:19 Sodium 139 mmol/L (137-145) 11/01/18 10:18 Potassium 4.4 mmol/L (3.4-5.1) 11/01/18 10:18 Chloride 102 mmol/L (98-107) 11/01/18 10:18 Carbon Dioxide 28 mmol/L (22-32) 11/01/18 10:18 BUN 10 mg/dL (7-17) 11/01/18 10:18 Creatinine 0.60 mg/dL (0.52-1.04) 11/01/18 10:18 Estimated GFR > 60.0 mL/min (>60) 11/01/18 10:18 BUN/Creatinine Ratio 16.7 (6-22) 11/01/18 10:18 Glucose 144 mg/dL (80-110) H 11/01/18 10:18 Calcium 9.4 mg/dL (8.4-10.2) 11/01/18 10:18 Total Bilirubin 1.4 mg/dL (0.2-1.3) H 11/01/18 10:18 AST 67 IU/L (14-36) H 11/01/18 10:18 ALT 25 IU/L (9-52) 11/01/18 10:18 Alkaline Phosphatase 91 U/L (38-126) 11/01/18 10:18 Total Protein 6.8 g/dL (6.3-8.2) 11/01/18 10:18 Albumin 4.3 g/dL (3.5-5.0) 11/01/18 10:18 Globulin 2.5 g/dL (1.7-4.1) 11/01/18 10:18 Albumin/Globulin Ratio 1.7 (1.0-2.8) 11/01/18 10:18 Assessment and Plan (1) Primary cancer of left breast with metastasis to other site Overview: 62 year old female presented with weight loss, abdominal pain, and diarrhea. CT abd/pelvis 01/25/2018: diffuse osseous metastasis. EGD/C-scope 01/25/2018: edematous mucosa in the cardia, gastric fundus and duodenm, congested mucosa in the entire examined colon; colon/gastric biopsies found metastatic carcinoma consistent with lobular carcinoma of breast. CT chest 01/27/2018 showed no pulmonary parenchymal nodules or adenopathy, but it showed diffuse osseous predominantly blastic metastasis. Infiltration of the proximal right humerus was noted. On January 27, 2018 patient underwent left breast ultrasound-guided core biopsies:invasive lobular carcinoma, intermediate grade, 4 of 9 cores involved, 6 mm in greatest length of carcinoma, without identifiable lymphovascular invasion, without ductal carcinoma in-situ present, ER positive (3+, 100% of cells), MD positive (1+, 30% of cells), Ki 67 intermediate (10% of cells), HER2 IHC equivocal for HER2 (overexpression 2+, 20% of cells), FISH negative by FISH. MRI of the brain on 02/11/2018. Brain MRI: diffuse thickening and enhancement throughout the dura including the falx, suspicious for diffuse meningeal metastasis. She was started on endocrine therapy on 02/08/2018 with fulvestrant which was switched to Letrazole on 04/20/2018 per patient request. She was started on palbociclib 3 weeks on and 1 week off on 02/19/2018. On 07/26/2018, palbociclib was switched to abemaciclib 150 mg twice daily. On 08/05/2018, she had to stop abemaciclib because of severe fatigue, diarrhea, nausea, and vomiting. Thereafter, we stopped abemaciclib permanently, and restart the palbociclib. Assessment Clinically, I think patient has been doing well. I will continue current treatment without any changes. Per patient's request, I will refer the patient to Dr. Vera at [place]. Patient said that it is have an hour closer that the clinic here. Plan: 1. Continue Letrazole 2.5 mg daily for now 2. Continue Palbociclib 125 mg on day 1-21 every 28 days 3. Ok to proceed to Xgeva 120 mg subQ monthly 4. Refer to Dr. Vera at [facility] for [facility] (2) Bone metastasis Assessment: CT chest 01/27/2018 showed no pulmonary parenchymal nodules or adenopathy, but it showed diffuse osseous predominantly blastic metastasis and infiltration of the proximal right humerus was noted. Previously, we have discussed with the patient about the use of Xgeva. However we have not received the clearance from her dentist yet. The bone scan showed no evidence of osseus metastasis. It is quite surprising. I reviewed the CT scan as well as the bone scan from 10/27/2018. It showed widespread bone metastasis both on the CT scan as well as on the bone scan. Plan: Ok to proceed to Xgeva 120 mg subQ today (3) Cachexia Assessment and Plan: Her weight has been stale. I encouraged patient to increase oral intake.. (4) Anemia Assessment: Laboratory tests from December 2017 clearly indicated that the alex ent has both folic acid deficiency as well as vitamin B12 deficiency. In addition the anemia also may be related to the underlying metastatic breast cancer itself. No iron deficiency. Plan: 1. Cont Vitamin B12 1000 mcg subQ monthly 2. Cont folic acid 2 mg daily (5) Diarrhea Assessment and Plan: Diarrhea has improved after we stopped Abemaciclib. Immodium or Lomotil prn. (6) Dizziness Likely related to the possible meningeal metastasis. But LP cytology negative. I encourage her to get MRI study and follow up at [facility] (7) Pain Abdomen pain is related to metastatic involvement of the GI tract by her lobular breast cancer. Now improving. Plan: 1. Oxycodone 5 mg, 1# q4-6h prn 2. OTC stool softener as needed. (8) Hyperbilirubinemia Assessment and Plan: stable. cont monitoring. (9) Leukopenia due to antineoplastic chemotherapy Assessment and Plan: mild leukopenia. related to Abemaciclib. monitor. (10) Subcutaneous nodule Patient has noticed couple of subcutaneous nodules recently. Today I looked at the nodules and they are stable. I talked with the patient that I will continue observation for now. If it is increasing in size, will consider surgical biopsy.
[2018-12-13] MEDS: DENOSUMAB 120 MG/1.7 ML VIAL SUBCUT (10:26)
[2019-01-10 10:07] VITALS: BP 122/77; PULSE 85; RESP 16; TEMP 36.3; O2SAT 100
--- NOTE | 2019-01-10 10:20 | ONC.PN ---
PN -Subjective Interval history: ID/CC: 63 year old with metastatic breast cancer now on treatment with letrozole 2.5 mg once daily and palbociclib 100 mg/d 21/ days. She is here to initiate Xgeva injection. Interim Events: Since her previous visit, patient continues to complain abdominal discomfort and pain. She is also having nausea and vomiting. She was evaluated by her primary care provider and increased the dosage of Zofran to 8 mg on a as needed basis. Patient in addition has scheduled visit with Dr. Vera next week. Patient was again is complaining intense skin itching on the back and on the legs. She is using lotion over the counter for the symptoms. 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 On 02/08/2018, patient was started on fulvestrant. On 02/19/2018, she was started on Palbociclib 125 mg daily, 3 weeks on and 1 week off. Because of the meningeal metastasis concern, patient was referred to [facility] for second opinion and was evaluated by Dr. Sparks on 03/25/2018. Dr. Sparks agreed with the treatment plan. Patient underwent LP on 04/02/2018 at [facility] and the cytology was negative for malignancy. During her last visit on 04/05/2018, patient requested that the injection of fulvestrant be switched to oral medications. After discussion, patient agreed to try letrozole 2.5 mg once a day. However, for unknown reason, patient received letrozole on April 20, 2018 and she started since then. The patient was evaluated at [facility] by Dr. Aldrich in Radiation Oncology department on 06/04/2018. Dr. Aldrich reviewed the MRI images. Dr. 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 He also discussed this case with Dr. Viviana Self (Neurooncologist) who feels the same. Dr. Aldrich explained to the patient that the plan is to repeat MRI of the brain as well as MRI of the whole spine in 3-4 weeks and then follow-up with him. Whole brain radiotherapy will be held at this time. Dr. Sparks also discussed with me about possibly switching to abemaciclib since it is an agent that can better cross the blood brain barrier. Patient underwent CT scan on 10/27/2018. The CT scan showed overall stable examination since 07/20/2018. The CT re-demonstrated widespread osseous metastasis that has not grossly changed. There is unchanged appearance of colonic wall thickening involving the hepatic flexure and transverse colon. There is an indeterminate cystic lesion involving the region of the pancreatic tail which appears grossly unchanged. same day bone scan showed diffusely he 2 gene is increased bone uptake corresponding to diffuse metastatic disease seen on CT. There is a focal uptake at the right costovertebral junction of T11 suggestive of active metastatic disease. - Patient Self-Reported Symptoms SR Constitution: Night Sweats SR eye issues: Vision changes SR ears, nose, mouth, throat issues: Nose bleeds SR respiratory issues: Cough SR Cardiovascular issues: Dizzy/lightheaded SR Skin issues: Dry skin, Skin rash or itching SR Gastrointestinal issues: Nausea, Vomiting, Diarrhea SR Musculoskeletal issues: Joint pain or swelling, Muscle weakness, Cold hands or feet, Difficulty walking, Bone pain SR Neuro issues: Lightheaded/dizzy, Difficulty balancing SR Hematologic issues: Slow healing SR Endocrine issues: Hot flashes - Additional ROS All systems PM: reviewed and no additional remarkable complaints except as stated Home Medications and Allergies Home Medications Medication Instructions Recorded Confirmed Type lorazepam [Ativan] 0.5 mg SUBLINGUAL 4-6XD PRN #60 tab 02/04/18 01/10/19 Rx cyanocobalamin (vitamin B-12) 1,000 mcg PO DAILY 06/14/18 01/10/19 History [Vitamin B-12] folic acid 1 mg PO DAILY 06/14/18 01/10/19 History letrozole [Femara] 2.5 mg PO DAILY #90 tab 09/02/18 01/10/19 Rx ondansetron HCl [Zofran] 8 mg PRN PRN 10/14/18 01/10/19 History oxycodone 5 mg PO Q4-6H PRN #60 cap 10/14/18 01/10/19 Rx Allergies Allergy/AdvReac Type Severity Reaction Status Date / Time No Known Drug Allergies Allergy Verified 02/04/18 09:11 Exam Vital signs: Vital Signs Temp Pulse Resp BP Pulse Ox 01/10/19 10:07 97.3 F L 85 16 122/77 100 Intake and Output 01/09/19 01/10/19 01/10/19 23:59 07:59 15:59 Other: Weight 42.7 kg Patient Weight 01/10/19 23:59 Weight 42.7 kg - Constitutional positive no acute distress, positive thin, positive cooperative - Routine HEENT Exam Head: Present: normocephalic, atraumatic Eye: Present: EOMI, PERRL, normal accommodation. Absent: conjunctival icterus ENT: Present: mucous membranes moist - Routine Neck Exam Present: supple. Absent: lymphadenopathy, thyromegaly - Routine Chest/Breast/Axilla Exam Axillae: Absent: lymphadenopathy - Routine Respiratory Exam Present: Clear to auscultation bilaterally. Absent: wheezes - Routine Cardiovascular Exam Present: RRR, S1, S2. Absent: murmur, gallop, rubs - Routine Abdominal Exam Present: soft, tenderness. Absent: organomegaly - Routine Extremities Exam Absent: edema - Routine Neurological Exam Present: alert, oriented X3, CN II-XII intact. Absent: sensory deficit, motor deficit - Routine Psychiatric Exam Present: normal affect Results - Labs Laboratory Last Values WBC 3.8 X10^3/uL (4.5-11.0) L 11/01/18 10:18 RBC 2.89 X10^6/uL (4.0-5.2) L 11/01/18 10:18 Hgb 11.8 g/dL (12.0-16.0) L 11/01/18 10:18 Hct 34.0 % (36-46) L 11/01/18 10:18 MCV 117.7 fL (80-100) H 11/01/18 10:18 MCH 41.0 PG (26-34) H 11/01/18 10:18 MCHC 34.9 % (30-36) 11/01/18 10:18 RDW 17.5 % (11.6-14.8) H 11/01/18 10:18 Plt Count 165 X10^3/uL (150-400) 11/01/18 10:18 Neut % (Auto) 65.3 % (50-75) 11/01/18 10:18 Lymph % (Auto) 21.1 % (25-40) L 11/01/18 10:18 [place] % (Auto) 11.7 % (3-14) 11/01/18 10:18 Eos % (Auto) 0.9 % (2-4) L 11/01/18 10:18 Baso % (Auto) 1.0 % (0-2) 11/01/18 10:18 Neut # (Auto) 2500 /uL (2119-6342) 11/01/18 10:18 Lymph # (Auto) 800 /uL (3192-6800) L 11/01/18 10:18 [place] # (Auto) 400 /uL (0-900) 11/01/18 10:18 Eos # (Auto) 0 /uL (0-450) 11/01/18 10:18 Baso # (Auto) 0 /uL (0-100) 11/01/18 10:18 Total Counted 50 10/14/18 10:19 Seg Neutrophils % 48.0 % (38-70) 10/14/18 10:19 Band Neutrophils % 6.0 % (3-7) 10/14/18 10:19 Lymphocytes % (Manual) 28.0 % (25-45) 10/14/18 10:19 Atypical Lymphs % 12.0 % (-0) H 07/12/18 11:41 Monocytes % (Manual) 14.0 % (2-11) H 10/14/18 10:19 Eosinophils % (Manual) 2.0 % (2-4) 10/14/18 10:19 Basophils % (Manual) 2.0 % (0-1) H 10/14/18 10:19 Neutrophils # (Manual) 864 /uL (7731-8238) L 10/14/18 10:19 Platelet Estimate Decreased on smear 10/14/18 10:19 RBC Morphology See below 11/01/18 10:18 Poikilocytosis 1+ H 03/12/18 09:26 Anisocytosis 1+ H 11/01/18 10:18 Macrocytosis 3+ H 11/01/18 10:18 Ovalocytes 1+ H 10/14/18 10:19 Sodium 139 mmol/L (137-145) 11/01/18 10:18 Potassium 4.4 mmol/L (3.4-5.1) 11/01/18 10:18 Chloride 102 mmol/L (98-107) 11/01/18 10:18 Carbon Dioxide 28 mmol/L (22-32) 11/01/18 10:18 BUN 10 mg/dL (7-17) 11/01/18 10:18 Creatinine 0.60 mg/dL (0.52-1.04) 11/01/18 10:18 Estimated GFR > 60.0 mL/min (>60) 11/01/18 10:18 BUN/Creatinine Ratio 16.7 (6-22) 11/01/18 10:18 Glucose 144 mg/dL (80-110) H 11/01/18 10:18 Calcium 9.4 mg/dL (8.4-10.2) 11/01/18 10:18 Total Bilirubin 1.4 mg/dL (0.2-1.3) H 11/01/18 10:18 AST 67 IU/L (14-36) H 11/01/18 10:18 ALT 25 IU/L (9-52) 11/01/18 10:18 Alkaline Phosphatase 91 U/L (38-126) 11/01/18 10:18 Total Protein 6.8 g/dL (6.3-8.2) 11/01/18 10:18 Albumin 4.3 g/dL (3.5-5.0) 11/01/18 10:18 Globulin 2.5 g/dL (1.7-4.1) 11/01/18 10:18 Albumin/Globulin Ratio 1.7 (1.0-2.8) 11/01/18 10:18 Assessment and Plan (1) Primary cancer of left breast with metastasis to other site Overview: 62 year old female presented with weight loss, abdominal pain, and diarrhea. CT abd/pelvis 01/25/2018: diffuse osseous metastasis. EGD/C-scope 01/25/2018: edematous mucosa in the cardia, gastric fundus and duodenm, congested mucosa in the entire examined colon; colon/gastric biopsies found metastatic carcinoma consistent with lobular carcinoma of breast. CT chest 01/27/2018 showed no pulmonary parenchymal nodules or adenopathy, but it showed diffuse osseous predominantly blastic metastasis. Infiltration of the proximal right humerus was noted. On January 27, 2018 patient underwent left breast ultrasound-guided core biopsies:invasive lobular carcinoma, intermediate grade, 4 of 9 cores involved, 6 mm in greatest length of carcinoma, without identifiable lymphovascular invasion, without ductal carcinoma in-situ present, ER positive (3+, 100% of cells), WV positive (1+, 30% of cells), Ki 67 intermediate (10% of cells), HER2 IHC equivocal for HER2 (overexpression 2+, 20% of cells), FISH negative by FISH. MRI of the brain on 02/11/2018. Brain MRI: diffuse thickening and enhancement throughout the dura including the falx, suspicious for diffuse meningeal metastasis. She was started on endocrine therapy on 02/08/2018 with fulvestrant which was switched to Letrazole on 04/20/2018 per patient request. She was started on palbociclib 3 weeks on and 1 week off on 02/19/2018. On 07/26/2018, palbociclib was switched to abemaciclib 150 mg twice daily. On 08/05/2018, she had to stop abemaciclib because of severe fatigue, diarrhea, nausea, and vomiting. Thereafter, we stopped abemaciclib permanently, and restart the palbociclib. Assessment Patient presents here today for injection of xgeva. Plan: 1. Continue Letrazole 2.5 mg daily for now 2. Continue Palbociclib 125 mg on day 1-21 every 28 days 3. Ok to proceed to Xgeva 120 mg subQ monthly 4. Follow up with Dr. Vera next week at [facility] for [facility] (2) Bone metastasis Assessment: CT chest 01/27/2018 showed no pulmonary parenchymal nodules or adenopathy, but it showed diffuse osseous predominantly blastic metastasis and infiltration of the proximal right humerus was noted. Previously, we have discussed with the patient about the use of Xgeva. However we have not received the clearance from her dentist yet. The bone scan showed no evidence of osseus metastasis. It is quite surprising. I reviewed the CT scan as well as the bone scan from 10/27/2018. It showed widespread bone metastasis both on the CT scan as well as on the bone scan. Plan: Ok to proceed to Xgeva 120 mg subQ today (3) Cachexia Assessment and Plan: Her weight has been stale. I encouraged patient to increase oral intake.. (4) Anemia Assessment: Laboratory tests from December 2017 clearly indicated that the patient has both folic acid deficiency as well as vitamin B12 deficiency. In addition the anemia also may be related to the underlying metastatic breast cancer itself. No iron deficiency. Plan: 1. Cont Vitamin B12 1000 mcg subQ monthly 2. Cont folic acid 2 mg daily (5) Diarrhea Assessment and Plan: Diarrhea has improved after we stopped Abemaciclib. Immodium or Lomotil prn. (6) Dizziness Likely related to the possible meningeal metastasis. But LP cytology negative. I encourage her to get MRI study and follow up at [facility] (7) Pain Abdomen pain is related to metastatic involvement of the GI tract by her lobular breast cancer. Now improving. Plan: 1. Oxycodone 5 mg, 1# q4-6h prn 2. OTC stool softener as needed. (8) Hyperbilirubinemia Assessment and Plan: stable. cont monitoring. (9) Leukopenia due to antineoplastic chemotherapy Assessment and Plan: mild leukopenia. related to Abemaciclib. monitor. (10) Subcutaneous nodule Patient has noticed couple of subcutaneous nodules recently. Today I looked at the nodules and they are stable. I talked with the patient that I will continue observation for now. If it is increasing in size, will consider surgical biopsy.
[2019-01-10 10:54] LABS: Add Manual Diff / Slide Review NO; Basophils Absolute Auto 0 /uL (0-100); Basophils Percent Auto 0.8 % (0-2); Eosinophils Absolute Auto 0 /uL (0-450); Hematocrit 31.7 % (36-46); Hemoglobin 11.1 g/dL (12.0-16.0); Lymphocytes Absolute Auto 600 /uL (1100-4500); Lymphocytes Percent Auto 24.6 % (25-40); Mean Corpuscular HGB Conc 35.1 % (30-36); Mean Corpuscular Hemoglobin 43.8 PG (26-34); Mean Corpuscular Volume 124.8 fL (80-100); Monocytes Absolute Auto 200 /uL (0-900); Monocytes Percent Auto 9.2 % (3-14); Neutrophils Absolute Auto 1500 /uL (1500-7000); Neutrophils Percent Auto 64.4 % (50-75); Platelet Count 175 X10^3/uL (150-400); Red Blood Cell Count 2.54 X10^6/uL (4.0-5.2); Red Cell Distribution Width 17.3 % (11.6-14.8); White Blood Cell Count 2.3 X10^3/uL (4.5-11.0)
[2019-01-10] MEDS: DENOSUMAB 120 MG/1.7 ML VIAL SUBCUT (10:54)
[2019-01-10 11:06] LABS: Alanine Aminotransferase 17 IU/L (9-52); Albumin 4.3 g/dL (3.5-5.0); Albumin Globulin Ratio 1.7 (1.0-2.8); Alkaline Phosphatase 82 U/L (38-126); Aspartate Aminotransferase 46 IU/L (14-36); BUN Creatinine Ratio 16.7 (6-22); Bilirubin Total 2.4 mg/dL (0.2-1.3); Blood Urea Nitrogen 10 mg/dL (7-17); Calcium 8.8 mg/dL (8.4-10.2); Carbon Dioxide 26 mmol/L (22-32); Chloride 104 mmol/L (98-107); Estimated Glomerular Filt Rate > 60.0 mL/min (>60); Globulin 2.6 g/dL (1.7-4.1); Glucose 103 mg/dL (80-110); HEMOLYSIS < 15 (0-50); Potassium 4.6 mmol/L (3.4-5.1); Sodium 139 mmol/L (137-145); Total Protein 6.9 g/dL (6.3-8.2)
[2019-01-10 11:21] LABS: Anisocytosis 2+; Macrocytosis 2+
--- NOTE | 2019-01-25 11:49 | ONC.SCHED ---
Per Dr. Park patient has been transfered to Dr. Vera at [place].
--- NOTE | 2019-05-18 12:57 | ONC.SCHED ---
claim from billing that was denied in December has been ok'd per [employer] call ref# [id number]. It didn't attached to the auth on file. I did email billing and let them know to re-submit after 30 days. I spoke with Corina at the insurance company.
== END ==
PROVIDERS: PCP Family Medicine; Visit Provider Internal Medicine Hematology & Oncology
DX: C50.912 Malignant neoplasm of unspecified site of left female breast (principal); C79.51 Secondary malignant neoplasm of bone; C78.89 Secondary malignant neoplasm of other digestive organs; D52.9 Folate deficiency anemia, unspecified; D51.9 Vitamin B12 deficiency anemia, unspecified; R64 Cachexia; R19.7 Diarrhea, unspecified; D70.2 Other drug-induced agranulocytosis; G89.3 Neoplasm related pain (acute) (chronic); E80.6 Other disorders of bilirubin metabolism; R10.9 Unspecified abdominal pain; R42 Dizziness and giddiness; R22.9 Localized swelling, mass and lump, unspecified; Z17.0 Estrogen receptor positive status [ER+]; Z79.811 Long term (current) use of aromatase inhibitors
CPT/HCPCS: 36415; 80053; 85025; 96372; 96402; 99204; 99214; 99215; J0897; J3420; J9395

== ENCOUNTER → 2019-04-04 10:04 | Outpatient (CLI) | payer OTHER, SELFPAY ==
--- NOTE | 2019-04-04 | DI.NM.S_ITS ---
PROCEDURE: [place] BONE SCAN WHOLE BODY RADIOPHARMACEUTICAL: 21.9 mCi Tc-99m MDP IV. INDICATIONS: Malignant neoplasm of overlapping sites of left fe TECHNIQUE: Delayed whole-body scintigrams were obtained approximately 3-4 hours after intravenous injection of radiotracer. Anterior and posterior views were acquired from vertex to feet. COMPARISON: [place], [place] BONE SCAN WHOLE BODY, 04/19/2018, 12:51. [facility], CT, CT CHEST ABD PEL W CON, 10/27/2018, 11:13. [place], [place] BONE SCAN WHOLE BODY, 10/27/2018, 13:01. FINDINGS: There is diffusely increased osseous uptake involving the sternum, multiple ribs, thoracic and lumbar spine, sacrum, yet bones, humeri bilaterally, femora bilaterally, and tibia and fibula bilaterally, consistent with diffuse osseous metastases. Overall, there is no significant change. There is a focal uptake in the right side of T10, also unchanged. IMPRESSION: Diffuse osseous metastatic disease, overall no significant change from the last bone scan. Dictated by: Sherif Bain M.D. on 04/04/2019 at 18:19 Approved by: Sherif Bain M.D. on 04/05/2019 at 8:41
== END ==
PROVIDERS: Family Provider Family Medicine; PCP Family Medicine; Visit Provider Internal Medicine
DX: C50.812 Malignant neoplasm of overlapping sites of left female breast (principal); C79.51 Secondary malignant neoplasm of bone
CPT/HCPCS: 78306; A9503